=== PATIENT | female | born 1980 | race Caucasian/White ===

== ENCOUNTER 2021-01-04 09:42 | Emergency (ER) | payer MEDICAID, OTHER ==
[~2021-01-04] VITALS: Ht 175.3 cm; Wt 80.7 kg
[2021-01-04 10:04] VITALS: BP 148/108
[2021-01-04] MEDS ORDERED: methylPREDNISolone SOD SUCC 125 MG/2 ML VL IM ONE (10:15)
[2021-01-04] MEDS ORDERED: KETOROLAC TROMETH 60MG/2ML VIAL IM ONE (10:15)
== END 2021-01-04 10:47 | disposition home or self-care (01) ==
LOC: ER 09:42
DX: M10.9 Gout, unspecified (principal); E78.5 Hyperlipidemia, unspecified; I10 Essential (primary) hypertension; F17.210 Nicotine dependence, cigarettes, uncomplicated; Z88.0 Allergy status to penicillin
CPT/HCPCS: 96372; 99284; J1885; J2930

== ENCOUNTER 2023-10-16 19:29 | Inpatient (IN) | payer MEDICAID ==
[~2023-10-16] VITALS: Ht 175.3 cm; Wt 83.4 kg
[~2023-10-16 19:29] MED LIST: ESOM20CA70 PO; LISI10TA34 PO; LORA-483 PO; MONT-8 PO
[2023-10-16 22:00] LABS: Basophils # (auto) 0.1 10 ^3/uL (0-0.2); Eosinophils # (auto) 0.1 10 ^3/uL (0-0.8); Eosinophils % (auto) 2.4 % (0.0-7.0); Hematocrit 27.4 % (36.0-46.0); Hemoglobin 9.4 g/dL (12.2-16.2); Lymphocytes % (auto) 34.1 % (10.0-50.0); Mean Corpuscular Hemoglobin 32.3 pg (28.0-32.0); Mean Corpuscular Hgb Conc. 34.3 g/dL (32.0-36.0); Mean Corpuscular Volume 94.1 fL (80.0-100.0); Monocytes # (auto) 0.3 10 ^3/uL (0-1.3); Monocytes % (auto) 5.7 % (0.0-12.0); Neutrophils # (auto) 3.4 10 ^3/uL (1.6-8.6); Neutrophils % (auto) 56.8 % (37.0-80.0); Red Blood Cells 2.92 10^6/uL (4.0-5.20); Red Cell Distribution Width 11.8 % (11.8-14.3)
[2023-10-16 22:10] LABS: Alanine Aminotransferase 41 U/L (7-40); Albumin 4.5 g/dL (3.2-4.8); Alkaline Phosphatase 95 U/L (46-116); Anion Gap 11 (5-15); Aspartate Aminotransferase 38 U/L (13-40); Bilirubin, Total 0.3 mg/dL (0.2-1.0); Blood Urea Nitrogen 39 mg/dL (9-23); Calcium 9.2 mg/dL (8.5-10.1); Carbon Dioxide 23 mmol/L (20-30); Chloride 89 mmol/L (98-107); Glucose 83 mg/dL (74-106); Potassium 4.3 mmol/L (3.5-5.1); Sodium 123 mmol/L (136-145)
[2023-10-16 22:11] LABS: Total Protein 6.9 g/dL (5.7-8.2)
[2023-10-16 22:12] LABS: Urine Bacteria FEW /hpf (None Seen); Urine Blood Negative /uL (Negative); Urine Clarity Clear (Clear); Urine Color Colorless (Yellow); Urine Protein, UAD 2+ (Negative); Urine Specific Gravity 1.004 (1.001-1.035); Urine Urobilinogen Normal (Negative); Urine WBC 2 /hpf (0 - 5)
[2023-10-16] MEDS ORDERED: cefTRIAXone 1GM/50ML D5W 50 ML IV ONE (23:15)
[2023-10-16] MEDS ORDERED: SODIUM CHLORIDE 0.9% 1,000 ML IV ONE (23:15)
[2023-10-17] VITALS (8 sets, daily range): BP systolic 107–139; BP diastolic 63–80; PULSE 68–97; RESP 16–20; TEMP 97.4–98.4; O2SAT 95–100
[2023-10-17] MEDS ORDERED: ONDANSETRON HCL 4 MG/2 ML VIAL IV PRN (05:30)
[2023-10-17 07:39] LABS: Chloride 93 mmol/L (98-107); Potassium 4.4 mmol/L (3.5-5.1); Sodium 127 mmol/L (136-145)
[2023-10-17 07:40] LABS: Anion Gap 10 (5-15); Calcium 9.8 mg/dL (8.5-10.1); Carbon Dioxide 24 mmol/L (20-30)
[2023-10-17 07:45] LABS: BUN/Creatinine Ratio 14.9 (10.0-20.0); Blood Urea Nitrogen 33 mg/dL (9-23); Glucose 86 mg/dL (74-106)
[2023-10-17] MEDS ORDERED: TOLV15TA PO (09:07)
[2023-10-17] MEDS ORDERED: HYDR-4798 PO (09:07)
[2023-10-17] MEDS ORDERED: TOLV30TA2 PO (09:07)
[2023-10-17] MEDS ORDERED: UREA 15gm PO Powder PKG PO SCH (10:30)
[2023-10-17] MEDS: LISINOPRIL 10 MG TAB PO SCH (11:04)
[2023-10-17] MEDS: HYDROcodone-ACET 10/325MG TAB PO PRN ×2 (11:04→18:00)
[2023-10-17] MEDS ORDERED: SODIUM CHLORIDE 0.9% 1,000 ML IV ONE (11:45)
[2023-10-17] MEDS ORDERED: LACTULOSE 20Gm/30ML SOLN PO ONE (16:30)
[2023-10-17] MEDS ORDERED: JYNARQUE PO SCH (18:00)
[2023-10-17] MEDS: DOCUSATE SOD 100 MG CAP PO SCH (20:54)
[2023-10-17] MEDS ORDERED: MONTELUKAST SODIUM 10 MG TAB PO SCH (22:00)
[2023-10-18 05:00] VITALS: BP 122/75; PULSE 85; RESP 20; TEMP 97.5; O2SAT 99
[2023-10-18] MEDS: HYDROcodone-ACET 10/325MG TAB PO PRN ×2 (05:03→11:00)
[2023-10-18 06:25] LABS: Alanine Aminotransferase 30 U/L (7-40); Albumin 3.8 g/dL (3.2-4.8); Alkaline Phosphatase 66 U/L (46-116); Anion Gap 10 (5-15); Aspartate Aminotransferase 25 U/L (13-40); Bilirubin, Total 0.5 mg/dL (0.2-1.0); Blood Urea Nitrogen 35 mg/dL (9-23); Calcium 9.1 mg/dL (8.7-10.4); Carbon Dioxide 21 mmol/L (20-30); Chloride 105 mmol/L (98-107); Glucose 98 mg/dL (74-106); Potassium 4.1 mmol/L (3.5-5.1); Total Protein 6.1 g/dL (5.7-8.2)
[2023-10-18 06:57] LABS: Basophils # (auto) 0 10 ^3/uL (0-0.2); Basophils % (auto) 1.1 % (0.0-2.0); Eosinophils # (auto) 0.1 10 ^3/uL (0-0.8); Eosinophils % (auto) 3.3 % (0.0-7.0); Hematocrit 26.5 % (36.0-46.0); Lymphocytes # (auto) 1.2 10 ^3/uL (0.4-5.4); Lymphocytes % (auto) 30.5 % (10.0-50.0); Mean Corpuscular Hemoglobin 32.1 pg (28.0-32.0); Mean Corpuscular Hgb Conc. 33.8 g/dL (32.0-36.0); Mean Corpuscular Volume 94.7 fL (80.0-100.0); Monocytes # (auto) 0.3 10 ^3/uL (0-1.3); Monocytes % (auto) 7.6 % (0.0-12.0); Neutrophils # (auto) 2.2 10 ^3/uL (1.6-8.6); Neutrophils % (auto) 57.5 % (37.0-80.0); Nucleated Red Blood Cells % 0.1 %; White Blood Cell 3.8 10^3/uL (4.4-10.8)
[2023-10-18] MEDS ORDERED: TOLVAPTAN PO SCH (07:00)
[2023-10-18 07:04] LABS: Sodium 136 mmol/L (136-145)
[2023-10-18 08:00] VITALS: PULSE 74; RESP 20
[2023-10-18 08:55] VITALS: BP 114/68; PULSE 74; RESP 20; TEMP 98.3; O2SAT 97
[2023-10-18] MEDS: DOCUSATE SOD 100 MG CAP PO SCH (09:11)
[2023-10-18] MEDS: LISINOPRIL 10 MG TAB PO SCH (09:12)
[2023-10-18] MEDS ORDERED: B-COTAB10 PO (10:18)
[2023-10-18 11:53] VITALS: BP 114/68; PULSE 74; RESP 20; TEMP 98.3; O2SAT 97
== END 2023-10-18 13:03 | disposition home or self-care (01) | DRG 426 ==
LOC: ER 19:29 → OVERFLOW 10-17 05:16 → CENTRAL 10-17 09:00
PROVIDERS: ADMIT Nurse Practitioner; ATTEND Internal Medicine
DX: E87.1 Hypo-osmolality and hyponatremia (principal); N18.4 Chronic kidney disease, stage 4 (severe); Q61.2 Polycystic kidney, adult type; E78.5 Hyperlipidemia, unspecified; F17.210 Nicotine dependence, cigarettes, uncomplicated; G89.29 Other chronic pain; I12.9 Hypertensive chronic kidney disease with stage 1 through stage 4 chronic kidney disease, or unspecified chronic kidney disease; I25.10 Atherosclerotic heart disease of native coronary artery without angina pectoris; N39.0 Urinary tract infection, site not specified; M54.50 Low back pain, unspecified; M10.9 Gout, unspecified; F41.9 Anxiety disorder, unspecified; M54.9 Dorsalgia, unspecified; Z80.0 Family history of malignant neoplasm of digestive organs; Z82.71 Family history of polycystic kidney; Z88.0 Allergy status to penicillin
CPT/HCPCS: 36415; 80048; 80053; 81001; 83605; 83690; 84484; 85025; 93005; 96361; 96365; G0378

== ENCOUNTER 2024-11-25 12:27 | Inpatient (IN) | payer MEDICAID ==
[~2024-11-25] VITALS: Ht 175.3 cm; Wt 85.2 kg
[~2024-11-25 12:27] MED LIST changes: +B-CO1TAB60 PO; +HYDR-4798 PO; +TOLV15TA PO; +TOLV30TA2 PO
[2024-11-25 12:57] LABS: Basophils # (auto) 0 10 ^3/uL (0-0.2); Basophils % (auto) 0.7 % (0.0-2.0); Eosinophils # (auto) 0.2 10 ^3/uL (0-0.8); Hematocrit 25.9 % (36.0-46.0); Lymphocytes # (auto) 0.9 10 ^3/uL (0.4-5.4); Lymphocytes % (auto) 14.9 % (10.0-50.0); Mean Corpuscular Hemoglobin 32.6 pg (28.0-32.0); Mean Corpuscular Hgb Conc. 34.9 g/dL (32.0-36.0); Mean Corpuscular Volume 93.4 fL (80.0-100.0); Monocytes # (auto) 0.3 10 ^3/uL (0-1.3); Monocytes % (auto) 5.1 % (0.0-12.0); Neutrophils # (auto) 4.4 10 ^3/uL (1.6-8.6); Neutrophils % (auto) 76.3 % (37.0-80.0); Platelet Count (auto) 288 10^3/uL (140-450); Red Blood Cells 2.78 10^6/uL (4.0-5.20); Red Cell Distribution Width 13.4 % (11.8-14.3); White Blood Cell 5.7 10^3/uL (4.4-10.8)
--- NOTE | 2024-11-25 13:00 | DVH ---
CHEST RADIOGRAPH Indication: CHEST PAIN Technique: Single frontal view of the chest was obtained Comparison: XY CHEST PORTABLE on DOS: 04/06/23 FINDINGS: Lines and Tubes: None Lungs: No focal consolidation. Pleura: No effusion. No pneumothorax. Cardiomediastinal contours: Unremarkable Bones: No acute osseous abnormality. IMPRESSION: No acute cardiopulmonary disease.
[2024-11-25 13:14] LABS: Alanine Aminotransferase 21 U/L (7-40); Alkaline Phosphatase 112 U/L (46-116); Anion Gap 14 (5-15); Aspartate Aminotransferase 22 U/L (13-40); BUN/Creatinine Ratio 10.8 (10.0-20.0); Calcium 9.8 mg/dL (8.7-10.4); Glucose 89 mg/dL (74-106); Potassium 4.6 mmol/L (3.5-5.1); Total Protein 7.6 g/dL (5.7-8.2)
[2024-11-25 13:16] LABS: Bilirubin, Total 0.3 mg/dL (0.2-1.0); Blood Urea Nitrogen 73 mg/dL (9-23); Carbon Dioxide 18 mmol/L (20-31); Chloride 98 mmol/L (98-107); Sodium 130 mmol/L (136-145)
--- NOTE | 2024-11-25 13:31 | ED.PDOC ---
History of Present Illness HPI Comments This is a 44-year-old female who comes in with chief complaint of palpitations as well as generalized weakness. The patient states that she has had a history of anemia in the past. For the past few days she has been having some chest pressure and is concerned that she is anemic. The patient is currently getting iron infusions in her last one was done on Friday. Patient was able to ambulate into the emergency department's without any difficulty but states that she was having the palpitations. The patient denies any vomiting or diarrhea. Chief Complaint: Chest Pain Time Seen by MD: 12:31 Primary Care Provider: HI Reviewed Notes: Nurses Notes, Medications, Allergies (Allergies listed above) Allergies: Coded Allergies: Alprazolam (Verified Allergy, Unknown, 01/04/21) Penicillins (Verified Allergy, Unknown, 01/04/21) Home Meds Active Scripts B-Complex W/ C & Folic Acid (Nephro-Romeo) Tab, 1 TAB PO DAILY for 30 Days, #30 TAB 2 Refills Prov:HEENA DOMINGUEZ MD 10/18/23 Reported Medications Hydrocodone-Acetaminophen (Hydrocodone Bitartrate/AC 10-325 mg) 1 Tab Tab, 1 TAB PO for CKD, TAB 10/17/23 Tolvaptan (Jynarque) 15 Mg Tab, 15 MG PO for CKD, TAB 10/17/23 Tolvaptan (Jynarque) 30 Mg Tab, 30 MG PO for CKD, TAB 10/17/23 Montelukast Sodium (MONTELUKAST SODIUM) 10 Mg Tab, 1 TAB PO 04/06/23 Esomeprazole Magnesium (Esomeprazole Magnesium Dr) 20 Mg Cap, 1 CAP PO DAILYPRN PRN 04/06/23 Lisinopril (Lisinopril) 10 Mg Tab, 1 TAB PO DAILY 04/06/23 Loratadine (CLARITIN TABLET) 10 Mg Tb, 1 TAB PO DAILY 04/06/23 Information Source: Patient Mode of Arrival: Ambulatory Severity: Moderate Timing: Days Duration: Since onset Prehospital treatment: None Associated signs and symptoms Generalized weakness with palpitations Past Medical History PAST MEDICAL HISTORY: Anemia, CKF, Gout, High Lipids, HTN Surgical History (Other): Breast augmentation HEALTH AND WELLNESS COACH History: Denies all HEALTH AND WELLNESS COACH Hx Family History Family History: Family hx of Kidney so Social History Smoker: Cigarettes Alcohol: Denies ETOH Use Drugs: Denies Drug Use Lives In: Home Constitutional: reports: weakness; denies: chills, diaphoresis, fatigue, fever, malaise, sweats, others EENTM: denies: blurred vision, double vision, ear bleeding, ear discharge, ear drainage, ear pain, ear ringing, eye pain, eye redness, hearing loss, mouth pain, mouth swelling, nasal discharge, nose bleeding, nose congestion, nose pain, photophobia, tearing, throat pain, throat swelling, voice changes, others Respiratory: denies: cough, hemoptysis, orthopnea, SOB at rest, shortness of breath, SOB with excertion, stridor, wheezing, others Cardiovascular: reports: chest pain, palpitations; denies: dizzy spells, diaphoresis, Dyspnea on exertion, edema, irregular heart beat, left arm pain, lightheadedness, PND, syncope, others Gastrointestinal: denies: abdomen distended, abdominal pain, blood streaked bowels, constipated, diarrhea, dysphagia, difficulty swallowing, hematemesis, melena, nausea, poor appetite, poor fluid intake, rectal bleeding, rectal pain, vomiting, others Genitourinary: denies: abnormal vagina bleeding, burning, dyspareunia, dysuria, flank pain, frequency, hematuria, incontinence, pain, , vagina discharge, urgency, others Neurological: denies: dizziness, fainting, headache, left sided numbness, left sided weakness, numbness, paresthesia, pre-existing deficit, right sided numbness, right sided weakness, seizure, speech problems, tingling, tremors, weakness, others Musculoskeletal: denies: back pain, gout, joint pain, joint swelling, muscle pain, muscle stiffness, neck pain, others Integumetry: denies: bruises, change in color, change in hair/nails, dryness, laceration, lesions, lumps, rash, wounds, others Allergic/Immunocompromised: denies: Difficulty Healing, Frequent Infections, Hives, Itching, others Hematologic/Lymphatic: denies: anemia, blood clots, easy bleeding, easy bruising, swollen glands, others Endocrine: denies: excessive hunger, excessive sweating, excessive thirst, excessive urination, flushing, intolerance to cold, intolerance to heat, unexplained weight gain, unexplained weight loss, others Psychiatric: denies: anxiety, bipolar disorder, depression, hopeless, panic disorder, schizophrenia, sleepless, suicidal, others Physical Exam General Appearance: Moderate Distress HEENT: Normal ENT Inspection, Pharynx Normal, TMs Normal Neck: Full Range of Motion, Non-Tender, Normal, Normal Inspection Respiratory: Chest Non-Tender, Lungs Clear, No Accessory Muscle Use, No Respiratory Distress, Normal Breath Sounds Cardiovascular: No Edema, No JVD, No Murmur, No Gallop, Tachycardia Breast Exam: Deferred Gastrointestinal: No Organomegaly, Non Tender, No Pulsatile Mass, Normal Bowel Sounds, Soft Genitalia: Deferred Pelvic: Deferred Rectal: Deferred Extremities: No calf tenderness, Normal capillary refill, Normal inspection, Normal range of motion, Non-tender, No pedal edema Musculoskeletal : Apperance: Normal Neurologic: Alert, marketing officer II-XII nml as Tested, No Motor Deficits, Normal Affect, Normal Mood, No Sensory Deficits Cerebellar Function: Normal Reflexes: Normal Skin: Dry, Normal Color, Warm Lymphatic: No Adenopathy Was a procedure done? Was a procedure done?: No EKG EKG : Pulse Rate (adult): 103 [place]: Normal Cardiac Rhythm: ST Block: None ST: Nonsp Differential Dx Considerations may include: Palpitations, ACS, ND, generalized weakness, electrolyte imbalance X-Ray, Labs, Meds, VS Vital Signs Date Time Temp Pulse Resp B/P (MAP) Pulse Ox O2 Delivery O2 Flow Rate FiO2 11/25/24 12:36 103 Lab Test 11/25/24 12:47 Range/Units White Blood Count 5.7 4.4-10.8 10^3/uL Red Blood Count 2.78 L 4.0-5.20 10^6/uL Hemoglobin 9.0 L 12.2-16.2 g/dL Hematocrit 25.9 L 36.0-46.0 % Mean Corpuscular Volume 93.4 80.0-100.0 fL Mean Corpuscular Hemoglobin 32.6 H 28.0-32.0 pg Mean Corpuscular Hemoglobin Concent 34.9 32.0-36.0 g/dL Red Cell Distribution Width 13.4 11.8-14.3 % Platelet Count 288 140-450 10^3/uL Mean Platelet Volume 6.5 L 6.9-10.8 fL Neutrophils (%) (Auto) 76.3 37.0-80.0 % Lymphocytes (%) (Auto) 14.9 10.0-50.0 % Monocytes (%) (Auto) 5.1 0.0-12.0 % Eosinophils (%) (Auto) 3.0 0.0-7.0 % Basophils (%) (Auto) 0.7 0.0-2.0 % Neutrophils # (Auto) 4.4 1.6-8.6 10 ^3/uL Lymphocytes # (Auto) 0.9 0.4-5.4 10 ^3/uL Monocytes # (Auto) 0.3 0-1.3 10 ^3/uL Eosinophils # (Auto) 0.2 0-0.8 10 ^3/uL Basophils # (Auto) 0 0-0.2 10 ^3/uL Nucleated Red Blood Cells 0.0 % Sodium Level 130 L 136-145 mmol/L Potassium Level 4.6 3.5-5.1 mmol/L Chloride Level 98 98-107 mmol/L Carbon Dioxide Level 18 L 20-31 mmol/L Anion Gap 14 5-15 Blood Urea Nitrogen 73 H 9-23 mg/dL Creatinine 6.73 H 0.550-1.02 mg/dL Glomerular Filtration Rate Calc 7 >90 mL/min BUN/Creatinine Ratio 10.8 10.0-20.0 Serum Glucose 89 74-106 mg/dL Calcium Level 9.8 8.7-10.4 mg/dL Magnesium Level 1.5 L 1.6-2.6 mg/dL Total Bilirubin 0.3 0.2-1.0 mg/dL Aspartate Amino Transferase (AST) 22 13-40 U/L Alanine Aminotransferase (ALT) 21 7-40 U/L Alkaline Phosphatase 112 46-116 U/L Troponin I High Sensitivity 4 </=34 ng/L Total Protein 7.6 5.7-8.2 g/dL Albumin 5.0 H 3.2-4.8 g/dL The patient's CBC shows anemia with a hemoglobin of 9 and hematocrit of 25 The rest of the chemistry panel shows hyponatremia at 130 The BUN is 73 and the creatinine 6.73 There is a concern with the renal failure The patient was being admitted to the hospitalist The patient understands and agrees with the management The chest x-ray shows: No sign of any abnormalities The patient was being admitted at this time Images Reviewed?: Images reviewed and evaluated by me Time of 1ST Reevaluation: 13:28 Reevaluation 1ST: Unchanged Patient Education/Counseling: Diagnosis, Treatment, Prognosis Family Education/Counseling: No Family Present Departure 1 Departure Time of Disposition: 13:29 Impression: Primary Impression: Acute hyponatremia Additional Impressions: Acute renal failure Qualified Codes: N17.1 - Acute kidney failure with acute cortical necrosis Severe anemia Acute chest pain Disposition: ADMITTED INPATIENT Admit to: Tele Condition: Fair Critical Care Note Critical Care Time?: Yes (35 min-critical care time only) Stability Stability form required: Yes Unstable for transfer: Telemetry monitoring (Telemetry monitoring required), ED Physician Assesment (Clinical assesment) Heart Score Heart Score: Heart Score Response (Comments) Value History Moderate Suspicious 1 EKG Repolarization Disturb 1 Age 45-64 1 Risk Factors 1 or 2 risk factors 1 Troponin Normal limit 0 Total 4 LEOPOLDO HOU MD Nov 25, 2024 13:31
--- NOTE | 2024-11-25 23:10 | DVHHPRES ---
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 She also reports shortness of breaths, and weakness. Per patient, she has a chronic anemia due to CKD, and has been using Epogen 5000 per week since 1.5 months, which at the beginning helped in improving the Hb, but later her Hb started declining back despite using Epogen. She denies fever, cough, nausea, vomiting, or any recent bowel and bladder habit changes. PMHx: CKD grade 5 (due to autosomal dominant polycystic kidney disease, have never performed HD), chronic anemia (due to CKD, never underwent BT), gout, dyslipidemia, hypertension and liver cysts Family history: Has Polycystic kidney disease in parents and siblings Home medication: Tolvaptan, spironolactone, senna, [place], Epogen, and montelukast Allergic history: Alprazolam and penicillin Review of Systems Review of Systems General: patient denies fever, fatigue, weaknes, sweating, any recent changes in appetite and weight HEENT: No headaches, visiual changes, hearing loss, tinnitus, nasal congestion and discharge, and sore throat. Cardiovascular: Reports palpitation Respiratory: Reports shortness of breath Gastrointestinal: Denies nausea, vomiting, dysphagia, odynophagia, heartburn, abdominal pain, flatulence, bloating, diarrhea, constipation, change in stool, or blood in stool. Genitourinary: No dysuria, hematuria, discharge, frequency, urgency, nocturia, incontinence, and urinary retention. Endocrine: No heat or cold intolerance, polydipsia, polyuria, and polyphagia. Neurological: No dizziness, extremity weakness and numbness, tremors, gait disturbance, seizures, and memory impairment. Psychiatric: Denies depression, anxiety,or insomnia. Musculoskeletal: Denies neck pain, stiffness and swelling, back pain, muscle weakness, joint pain, stiffness, swelling, or limited range of motion. Skin: No rashes, itching, skin lesion, changes in hair, nail, skin texture and breast. Hematologic/Lymphatic: Denies easy bruising, bleeding tendencies, or lymph node enlargement. Allergies: Coded Allergies: Alprazolam (Verified Allergy, Unknown, 01/04/21) Penicillins (Verified Allergy, Unknown, 01/04/21) Exam Vital Signs Vital Signs Date Time Temp Pulse Resp B/P (MAP) Pulse Ox O2 Delivery O2 Flow Rate FiO2 11/25/24 20:30 98 16 153/98 (116) 96 11/25/24 15:10 Room Air* 0 21 11/25/24 15:02 98.4 98.4 Exam General Appearance: Alert, Oriented X3, Cooperative, No acute distress HEENT: Atraumatic, PERRLA, EOMI, Mucous membrane moist/pink Respiratory: Clear to auscultation, Normal air movement Cardiovascular: Regular rate, Normal S1, Normal S2, No murmurs, no chest wall tenderness Abdominal: Normal bowel sounds, Soft, No tenderness, No hepatospenomegaly, No masses Extremities: Left ankle is swollen Skin: No rashes, No breakdown, No significant lesion Neuro: Normal gait, Normal speech, Strength at 5/5 X4 ext, Normal tone, Sens ation intact, Cranial nerves 3-12 NL, Reflexes 2+ Psych/Mental Status: Mental status NL, Mood NL Labs/Xrays Labs Test 11/25/24 13:40 11/25/24 12:47 Range/Units Troponin I High Sensitivity 4 </=34 ng/L White Blood Count 5.7 4.4-10.8 10^3/uL Red Blood Count 2.78 L 4.0-5.20 10^6/uL Hemoglobin 9.0 L 12.2-16.2 g/dL Hematocrit 25.9 L 36.0-46.0 % Mean Corpuscular Volume 93.4 80.0-100.0 fL Mean Corpuscular Hemoglobin 32.6 H 28.0-32.0 pg Mean Corpuscular Hemoglobin Concent 34.9 32.0-36.0 g/dL Red Cell Distribution Width 13.4 11.8-14.3 % Platelet Count 288 140-450 10^3/uL Mean Platelet Volume 6.5 L 6.9-10.8 fL Neutrophils (%) (Auto) 76.3 37.0-80.0 % Lymphocytes (%) (Auto) 14.9 10.0-50.0 % Monocytes (%) (Auto) 5.1 0.0-12.0 % Eosinophils (%) (Auto) 3.0 0.0-7.0 % Basophils (%) (Auto) 0.7 0.0-2.0 % Neutrophils # (Auto) 4.4 1.6-8.6 10 ^3/uL Lymphocytes # (Auto) 0.9 0.4-5.4 10 ^3/uL Monocytes # (Auto) 0.3 0-1.3 10 ^3/uL Eosinophils # (Auto) 0.2 0-0.8 10 ^3/uL Basophils # (Auto) 0 0-0.2 10 ^3/uL Nucleated Red Blood Cells 0.0 % Sodium Level 130 L 136-145 mmol/L Potassium Level 4.6 3.5-5.1 mmol/L Chloride Level 98 98-107 mmol/L Carbon Dioxide Level 18 L 20-31 mmol/L Anion Gap 14 5-15 Blood Urea Nitrogen 73 H 9-23 mg/dL Creatinine 6.73 H 0.550-1.02 mg/dL Glomerular Filtration Rate Calc 7 >90 mL/min BUN/Creatinine Ratio 10.8 10.0-20.0 Serum Glucose 89 74-106 mg/dL Calcium Level 9.8 8.7-10.4 mg/dL Magnesium Level 1.5 L 1.6-2.6 mg/dL Total Bilirubin 0.3 0.2-1.0 mg/dL Aspartate Amino Transferase (AST) 22 13-40 U/L Alanine Aminotransferase (ALT) 21 7-40 U/L Alkaline Phosphatase 112 46-116 U/L Total Protein 7.6 5.7-8.2 g/dL Albumin 5.0 H 3.2-4.8 g/dL Assessment/Plan Assessment/Plan Possible SHAUNNA on CKD History of autosomal dominant polycystic kidney disease Hyponatremia NaCl tablet Continue tolvaptan Hypertension Continue spironolactone Constipation Continue seen and Hypomagnesemia, repleted Moderate anemia, normocytic normochromic DIET: Renal DVT PROPHYLAXIS: Lovenox CODE STATUS: Full code DISPOSITION: Med surge Patient's status and paln discussed with patient. Case discussed with Dr. Marion. Plan discussed with: Patient, Other (RN) My Orders Orders - KOBE SAGASTUME RESDIENT Procedure Category Date Status Time Admit ADMIT 11/25/24 Transmitted 22:50 Stat Ekg For Chest BIA 11/25/24 In Process Pain 22:50 Notify Md Of Changes BIA 11/25/24 In Process From Base 22:50 Date of Service: Nov 26, 2024 Billing Provider: BIR MARION MD Common Visit Codes: [id number] INP/OBS CARE (HIGH) KOBE SAGASTUME RESDIARSH Nov 25, 2024 23:10 BRI MARION MD Nov 28, 2024 15:11
[2024-11-26] MEDS: HYDROcodone-ACET 10/325MG TAB PO ONE (00:04)
--- NOTE | 2024-11-26 00:20 | DVH ---
CLINICAL INDICATION: L ANKLE SWOLLEN TECHNIQUE: XY L ANKLE 2 VIEW XRAY Comparison: None FINDINGS: Evidence of mild soft tissue swelling overlying the lateral malleolus and small ankle joint effusion. No evidence of fracture or dislocation. Ankle mortise appears unremarkable. IMPRESSION: No evidence of fracture or dislocation.
--- NOTE | 2024-11-26 00:33 | ECG ---
[facility] Test Date: 2024-11-25 Test Time: 13:27:15 Pat Name: CT WARE Department: ED Room: [address] [place] [address] A Gender: F Hospice Consultant: GARY : 1980 Requested By: DENZEL BAKER Order Number: [id number] Reading MD: Benedicto Lim Measurements Intervals [place] Rate: 87 P: 74 WY: 159 QRS: 62 QRSD: 87 T: 43 QT: 344 QTc: 414 Interpretive Statements Sinus rhythm Left atrial enlargement Electronically Signed On 11-26-2024 12:10:45 PST by Benedicto Lim Please click the below link to view image of tracing.
--- NOTE | 2024-11-26 00:45 | ECG ---
[facility] Test Date: 2024-11-25 Test Time: 12:36:42 Pat Name: CT WARE Department: ER Room: [address] [place] [address] A Gender: F Account Service Representative: ANNETTE : 1980 Requested By: DENZEL BAKER Order Number: [id number] Reading MD: Benedicto Lim Measurements Intervals [place] Rate: 103 P: 66 PA: 158 QRS: 60 QRSD: 89 T: 39 QT: 332 QTc: 435 Interpretive Statements Sinus tachycardia Probable left atrial enlargement Electronically Signed On 11-26-2024 12:10:21 PST by Benedicto Lim Please click the below link to view image of tracing.
[2024-11-26] MEDS: SODIUM CHLORIDE 1 GM TAB PO ONE (03:42)
[2024-11-26] MEDS: PANTOPRAZOLE 40 MG/10 ML VIAL INJ IV ONE (03:42)
[2024-11-26] MEDS: SPIRONOLACTONE 25 MG TAB PO ONE (03:43)
[2024-11-26] MEDS: ENOXAPARIN SOD 30 MG/0.3 ML SYRINGE SC ONE (03:43)
[2024-11-26] MEDS: MAGNESIUM SULFATE 1GM/100ML 100 ML IV SCH (03:44)
[2024-11-26 05:51] LABS: Basophils # (auto) 0.1 10 ^3/uL (0-0.2); Eosinophils # (auto) 0.3 10 ^3/uL (0-0.8); Hemoglobin 8.4 g/dL (12.2-16.2); Monocytes # (auto) 0.4 10 ^3/uL (0-1.3); Monocytes % (auto) 7.3 % (0.0-12.0); Neutrophils # (auto) 3.6 10 ^3/uL (1.6-8.6); Red Blood Cells 2.56 10^6/uL (4.0-5.20); White Blood Cell 5.8 10^3/uL (4.4-10.8)
[2024-11-26 05:53] LABS: Eosinophils % (auto) 5.5 % (0.0-7.0); Lymphocytes # (auto) 1.3 10 ^3/uL (0.4-5.4); Lymphocytes % (auto) 22.7 % (10.0-50.0); Mean Corpuscular Hemoglobin 32.7 pg (28.0-32.0); Mean Corpuscular Hgb Conc. 34.9 g/dL (32.0-36.0); Mean Corpuscular Volume 93.8 fL (80.0-100.0); Neutrophils % (auto) 62.5 % (37.0-80.0); Nucleated Red Blood Cells % 0.1 %; Platelet Count (auto) 266 10^3/uL (140-450); Red Cell Distribution Width 13.4 % (11.8-14.3)
[2024-11-26 06:10] LABS: % Iron Saturation 45.7 % (15-50)
[2024-11-26 06:12] LABS: Alanine Aminotransferase 20 U/L (7-40); Albumin 4.8 g/dL (3.2-4.8); Alkaline Phosphatase 94 U/L (46-116); Anion Gap 12 (5-15); Aspartate Aminotransferase 21 U/L (13-40); BUN/Creatinine Ratio 10.1 (10.0-20.0); Calcium 10.1 mg/dL (8.7-10.4); Chloride 99 mmol/L (98-107); Glucose 77 mg/dL (74-106); Potassium 4.1 mmol/L (3.5-5.1)
[2024-11-26 06:13] LABS: Bilirubin, Total 0.3 mg/dL (0.2-1.0); Blood Urea Nitrogen 68 mg/dL (9-23); Carbon Dioxide 20 mmol/L (20-31); Sodium 131 mmol/L (136-145); Total Protein 7.4 g/dL (5.7-8.2)
[2024-11-26 10:30] VITALS: BP 139/93; PULSE 101; RESP 20; O2SAT 97
[2024-11-26] MEDS: SPIRONOLACTONE 25 MG TAB PO SCH (10:55)
[2024-11-26] MEDS: TOLVAPTAN 45 MG PO SCH (10:55)
[2024-11-26 12:00] VITALS: BP 139/93; PULSE 101; RESP 20; TEMP 98.2; O2SAT 97
[2024-11-26 13:02] VITALS: BP 139/93; PULSE 101; RESP 20; O2SAT 97
--- NOTE | 2024-11-26 15:48 | DVHPNRES ---
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 She also reports shortness of breaths, and weakness. Per patient, she has a chronic anemia due to CKD, and has been using Epogen 5000 per week since 1.5 months, which at the beginning helped in improving the Hb, but later her Hb started declining back despite using Epogen. She denies fever, cough, nausea, vomiting, or any recent bowel and bladder habit changes. Patient was seen and examined on the bedside. She is alert, oriented x3. Complaint of palpitation and fatigue. No other active complaint. Constitutional: No: Fever, Chills, Sweats, Weakness, Malaise, Other Eyes: No: Pain, Vision change, Conjunctivae inflammation, Eyelid inflammation, Other, Redness ENT: No: Ear pain, Ear discharge, Nose pain, Nose discharge, Nose congestion, Mouth pain, Mouth swelling, Throat pain, Throat swelling, Other Respiratory: Shortness of breath, improving No: Cough, Dry,Wheezing, Hemoptysis, Pleuritic Pain, Sputum, Wheezing, Other Cardiovascular: No: Chest Pain, Palpitations, Orthopnea, Paroxysmal Noc. Dyspnea, Edema, Lt Headedness, Other Gastrointestinal: No: Nausea, Vomiting, Abdominal Pain, Diarrhea, Constipation, Melena, Hematochezia, Other Musculoskeletal: No: other, neck pain, shoulder pain, arm pain, back pain, hand pain, leg pain, foot pain Neurological:; No: Weakness, Numbness, Incoordination, Change in speech, Confusion, Seizures Objective vital signs Vital Sign Date Time Temp Pulse Resp B/P (MAP) Pulse Ox O2 Delivery O2 Flow Rate FiO2 11/26/24 13:02 101 20 139/93 (108) 97 11/26/24 12:00 98.2 98.2 11/25/24 15:10 Room Air* 0 21 medications Current Medications Medications Dose Ordered Sig/Chao Route Start Time Stop Time Status Last Admin Dose Admin Enoxaparin Sodium 30 mg DAILY SC 11/27/24 10:00 Spironolactone 100 mg DAILY PO 11/26/24 10:00 11/26/24 10:55 100 MG Pantoprazole Sodium 40 mg DAILY IV 11/27/24 10:00 Patient Own Medication 1 BID PO 11/26/24 10:00 11/26/24 10:55 1 Sodium Chloride 1,000 ml @ 100 mls/hr Q10H IV 11/26/24 13:45 Acetaminophen/ Hydrocodone Bitart 1 tab Q6HPRN PRN PO 11/26/24 13:45 Montelukast Sodium 10 mg HS PO 11/26/24 22:00 Examination Physical examination: General Appearance: Alert, Oriented X3, Cooperative, No acute distress HEENT: Atraumatic, PERRLA, EOMI, Mucous membrane moist/pink Respiratory: Clear to auscultation, Normal air movement Cardiovascular: Regular rate, Normal S1, Normal S2, No murmurs, no chest wall tenderness Abdominal: Normal bowel sounds, Soft, No tenderness, No hepatospenomegaly, No masses Extremities: No clubbing, No cyanosis, No edema, Normal pulses, No tenderness/swelling Skin: No rashes, No breakdown, No significant lesion Neuro: Normal gait, Normal speech, Strength at 5/5 X4 ext, Normal tone, Sensation intact,grossly intact cranial nerves. Psych/Mental Status: Mental status NL, Mood NL laboratory and microbiology Laboratory Tests 11/26/24 04:50 Test 11/26/24 04:50 Range/Units Serum Glucose 77 74-106 mg/dL Labs and/or images reviewed: Labs reviewed by me, Image(s) reviewed by me Problem List/Assessment/Plan Problem List/Assessment/Plan Assessment/Plan: # History of autosomal dominant polycystic kidney disease # Possible SHAUNNA on CKD secondary to hemodynamically mediated /VMN # Chronic anaemia secondary to CKD # Chronic euvolemic hyponatremia likely secondary to SIADH # Possible hypertensive heart disease # Rule out CHF - CXR revealed no acute cardiopulmonary abnormality - BNP is normal - Ordered Echo - IV normal saline 75 ml/hr - Tolvaptan 45 mg bid - Nacl tablet 1 gm daily. - Spironolactone 100 mg daily. - Pending echo. # Hypomagnesemia, repleted DIET: Renal DVT PROPHYLAXIS: Lovenox CODE STATUS: Full code DISPOSITION: Med surge Plan discussed with Dr. Dumont Plan discussed with: Patient, Other My Orders My Orders Orders - AUSTIN TALAVERA Procedure Category Date Status Time Echo 2d Mode Cardiac US 11/26/24 Logged DOP 11:53 Sodium Chloride 0.9% PHA 11/26/24 In Process 13:45 Hydrocodone-Acet PHA 11/26/24 In Process 10/325mg Tab ([place] 13:45 Renal DIET 11/26/24 Transmitted Standard(2gna,3gk,Lopho) Dinner Montelukast Tablet PHA 11/26/24 In Process (Singulair Tablet) 22:00 Date of Service: Nov 26, 2024 Billing Provider: DWIGHT MAXWELL MD Common Visit Codes: [id number] INP/OBS CARE(HIGH) AUSTIN TALAVERA RESIDENT Nov 26, 2024 15:48 DWIGHT MAXWELL MD Nov 30, 2024 09:49
[2024-11-26] MEDS: SODIUM CHLORIDE 0.9% 1,000 ML IV SCH (17:48)
[2024-11-26] MEDS: PANTOPRAZOLE 40 MG TAB PO ONE (19:13)
[2024-11-26] MEDS: HYDROcodone-ACET 10/325MG TAB PO PRN (20:17)
[2024-11-26] MEDS: MONTELUKAST SODIUM 10 MG TAB PO SCH (22:00)
[2024-11-26] MEDS: SENNA 8.6 MG TAB PO SCH (22:18)
[2024-11-27] VITALS (9 sets, daily range): BP systolic 104–136; BP diastolic 58–84; PULSE 72–97; RESP 16–18; TEMP 97.5–98.8; O2SAT 96–100
[2024-11-27] MEDS ORDERED: SPIR100T4 PO (03:11)
[2024-11-27] MEDS: PANTOPRAZOLE 40 MG TAB PO SCH (06:26)
[2024-11-27] MEDS: ENOXAPARIN SOD 30 MG/0.3 ML SYRINGE SC SCH (09:21)
[2024-11-27 09:30] LABS: Basophils # (auto) 0.1 10 ^3/uL (0-0.2); Basophils % (auto) 1.9 % (0.0-2.0); Eosinophils # (auto) 0.3 10 ^3/uL (0-0.8); Eosinophils % (auto) 6.3 % (0.0-7.0); Hematocrit 25.2 % (36.0-46.0); Hemoglobin 8.7 g/dL (12.2-16.2); Lymphocytes # (auto) 1.1 10 ^3/uL (0.4-5.4); Lymphocytes % (auto) 23.9 % (10.0-50.0); Mean Corpuscular Hemoglobin 32.6 pg (28.0-32.0); Mean Corpuscular Hgb Conc. 34.6 g/dL (32.0-36.0); Mean Corpuscular Volume 94.2 fL (80.0-100.0); Monocytes # (auto) 0.3 10 ^3/uL (0-1.3); Monocytes % (auto) 6.4 % (0.0-12.0); Neutrophils # (auto) 2.9 10 ^3/uL (1.6-8.6); Neutrophils % (auto) 61.5 % (37.0-80.0); Platelet Count (auto) 265 10^3/uL (140-450); Red Blood Cells 2.67 10^6/uL (4.0-5.20); Red Cell Distribution Width 13.7 % (11.8-14.3); White Blood Cell 4.8 10^3/uL (4.4-10.8)
[2024-11-27 09:36] LABS: Chloride 103 mmol/L (98-107); Potassium 4.6 mmol/L (3.5-5.1)
[2024-11-27 09:37] LABS: Anion Gap 14 (5-15); Calcium 10.1 mg/dL (8.7-10.4)
[2024-11-27 09:42] LABS: BUN/Creatinine Ratio 9.8 (10.0-20.0); Glucose 101 mg/dL (74-106)
[2024-11-27 09:43] LABS: Magnesium 1.8 mg/dL (1.6-2.6)
[2024-11-27 09:46] LABS: Blood Urea Nitrogen 70 mg/dL (9-23); Carbon Dioxide 18 mmol/L (20-31); Sodium 135 mmol/L (136-145)
[2024-11-27] MEDS ORDERED: PANTOPRAZOLE 40 MG/10 ML VIAL INJ IV SCH (10:00)
[2024-11-27] MEDS ORDERED: TOLVAPTAN 30 MG TAB PO SCH (10:00)
[2024-11-27] MEDS: DexAMETHasone SOD PHOS 10MG/1ML VIAL INJ IV ONE (12:02)
--- NOTE | 2024-11-27 12:41 | DVH ---
EXAM: US Retroperitoneal Limited, Renal CLINICAL INDICATION: perla/pkd TECHNIQUE: Real-time limited ultrasound of the retroperitoneum with image documentation. COMPARISON: US KIDNEY on DOS: 04/07/23 FINDINGS: RIGHT KIDNEY: Right kidney measures up to 14.1 cm. Bilateral renal cysts, largest measuring up to 6.7 cm. No stones. LEFT KIDNEY: Left kidney measures up to 13.6 cm. Portable left renal calculus, measuring up 5 mm without hydronephrosis. OTHER FINDINGS: . . . . .. IMPRESSION: 1. Portable left renal calculus, measuring up 5 mm without hydronephrosis. 2. Bilateral renal cysts, largest measuring up to 6.7 cm.
--- NOTE | 2024-11-27 16:39 | DVHPNRES ---
Progress Note Date Seen: Nov 27, 2024 Resident Creating Document: AUSTIN TALAVERA RESIDENT Medical Necessity Reason Pt with a Central, PICC or Fol: No Subjective Review of Systems This is a 44-year-old female with past medical history of CKD due to autosomal dominant polycystic kidney disease, gout, dyslipidemia, hypertension came to the hospital due to palpitation and generalized weakness since 2 days. She also reports shortness of breaths, and weakness. Per patient, she has a chronic anemia due to CKD, and has been using Epogen 5000 per week since 1.5 months, which at the beginning helped in improving the Hb, but later her Hb started declining back despite using Epogen. She denies fever, cough, nausea, vomiting, or any recent bowel and bladder habit changes. Patient was seen and examined on the bedside. She is alert, oriented x3. Complaint of palpitation, fatigue, lt ankle pain and swelling. No other active complaint. Objective vital signs Vital Sign Date Time Temp Pulse Resp B/P (MAP) Pulse Ox O2 Delivery O2 Flow Rate FiO2 11/27/24 13:00 98.8 92 16 122/78 (93) 98 98.8 11/27/24 08:00 Room Air* 0 21 Total Intake and Output 11/26/24 11/26/24 11/27/24 15:00 23:00 07:00 Intake Total 220 ml 720 ml Output Total 625 ml 1022 ml Balance -405 ml -302 ml medications Current Medications Medications Dose Ordered Sig/Chao Route Start Time Stop Time Status Last Admin Dose Admin Enoxaparin Sodium 30 mg DAILY SC 11/27/24 10:00 11/27/24 09:21 30 MG Spironolactone 100 mg DAILY PO 11/26/24 10:00 11/27/24 09:21 100 MG Patient Own Medication 1 BID PO 11/26/24 10:00 11/27/24 11:58 1 Sodium Chloride 1,000 ml @ 100 mls/hr Q10H IV 11/26/24 13:45 11/27/24 09:21 100 MLS/HR Acetaminophen/ Hydrocodone Bitart 1 tab Q6HPRN PRN PO 11/26/24 13:45 11/27/24 15:52 1 TAB Montelukast Sodium 10 mg HS PO 11/26/24 22:00 Sennosides 8.6 mg HS PO 11/26/24 22:00 11/26/24 22:18 8.6 MG Pantoprazole Sodium 40 mg DAILY@0600 PO 11/27/24 06:00 11/27/24 06:26 40 MG Examination Physical examination: General Appearance: Alert, Oriented X3, Cooperative, No acute distress HEENT: Atraumatic, PERRLA, EOMI, Mucous membrane moist/pink Respiratory: Clear to auscultation, Normal air movement Cardiovascular: Regular rate, Normal S1, Normal S2, No murmurs, no chest wall tenderness Abdominal: Normal bowel sounds, Soft, No tenderness, No hepatospenomegaly, No masses Extremities: Swelling in the Lt ankle with mild redness/tenderness, No clubbing, No cyanosis, No edema, Normal pulses Skin: No rashes, No breakdown, No significant lesion Neuro: Normal gait, Normal speech, Strength at 5/5 X4 ext, Normal tone, Sensation intact, grossly intact cranial nerves. Psych/Mental Status: Mental status NL, Mood NL laboratory and microbiology Laboratory Tests 11/27/24 08:55 Test 11/27/24 08:55 Range/Units Serum Glucose 101 74-106 mg/dL Labs and/or images reviewed: Labs reviewed by me, Image(s) reviewed by me Problem List/Assessment/Plan Problem List/Assessment/Plan Assessment/Plan: # History of autosomal dominant polycystic kidney disease # Possible SHAUNNA on CKD secondary to hemodynamically mediated /VMN # Chronic anaemia secondary to CKD # Chronic euvolemic hyponatremia likely secondary to SIADH # Lt renal calculus without hydronephrosis # Possible hypertensive heart disease # Rule out CHF - CXR revealed no acute cardiopulmonary abnormality - BNP is normal - U/S of the kidney left renal calculus without hydronephrosis and bilateral renal cyst. - IV normal saline 75 ml/hr - Tolvaptan 45 mg bid - Sodium chloride l tablet 1 gm daily. - Spironolactone 100 mg daily. - Nephrology on board - Pending echo. # Hypomagnesemia, repleted # Suspected gout of left ankle; treated with one dose of IV steroids; reviewed imaging results; to continue monitoring DIET: Renal DVT PROPHYLAXIS: Lovenox CODE STATUS: Full code DISPOSITION: Med surge Goals of care discussed with the patient for 20 minutes; full code Plan discussed with Dr. Lantigua Plan discussed with: Patient, Other (RN) My Orders My Orders Orders - AUSTIN TALAVERA Procedure Category Date Status Time Senna Pod Tablet PHA 11/26/24 In Process (Senokot Tablet) 22:00 Pantoprazole Tablet PHA 11/27/24 In Process (Protonix Tablet) 06:00 *[facility] CONS 11/27/24 Transmitted -[place] 10:27 Addendum Addendum Addendum I was physically present for the fields portions of the service provided to patient by THE RESIDENT. I have reviewed the documentation, discussed the case with resident and agree with the resident's documentation except as noted. Also the patient's clinical case was discussed with the patient's nurse. This medical document was created using an electronic medical record system with computerized dictation system. Although this document has been carefully reviewed, there might still be some phonetic and typographical errors. These areas are purely typographical due to imperfections of the software programs, and do not reflect any compromise in the patient's medical care. Late signature. Date of Service: Nov 27, 2024 Billing Provider: AL LANTIGUA MD Common Visit Codes: [id number] INP/OBS CARE(HIGH) Secondary Visit Codes: [id number] CARE PLAN 30 MINUTES (20 minutes) AUSTIN TALAVERA RESIDENT Nov 27, 2024 16:39 AL LANTIGUA MD Nov 28, 2024 07:23
--- NOTE | 2024-11-27 20:18 | DVHINCON2 ---
Date of service: Nov 27, 2024 History of Present Illness 43 years old female patient with past medical history of hypertension, CKD 4/5, dyslipidemia, autosomal polycystic kidney disease, low back pain, anxiety, presented with chief complaints of generalized weakness, palpitations and face turning pale the past two days patient is taking tolvaptan for ADPKD, she is also taking spironolactone 100 mg as outpatient Past Medical History As per HPI Past Surgical History Unknown exactly Allergies: Coded Allergies: Alprazolam (Verified Allergy, Unknown, 01/04/21) Penicillins (Verified Allergy, Unknown, 01/04/21) Home Meds Active Scripts B-Complex W/ C & Folic Acid (Nephro-Romeo) Tab, 1 TAB PO DAILY for 30 Days, #30 TAB 2 Refills Prov:HEENA DOMINGUEZ MD 10/18/23 Reported Medications Spironolactone (Spironolactone) 100 Mg Tab, 1 TAB PO DAILY, #30 TAB 11 Refills 11/27/24 Hydrocodone-Acetaminophen (Hydrocodone Bitartrate/AC 10-325 mg) 1 Tab Tab, 1 TAB PO for CKD, TAB 10/17/23 Tolvaptan (Jynarque) 15 Mg Tab, 15 MG PO for CKD, TAB 10/17/23 Tolvaptan (Jynarque) 30 Mg Tab, 30 MG PO for CKD, TAB 10/17/23 Montelukast Sodium (MONTELUKAST SODIUM) 10 Mg Tab, 1 TAB PO 04/06/23 Esomeprazole Magnesium (Esomeprazole Magnesium Dr) 20 Mg Cap, 1 CAP PO DAILYPRN PRN 04/06/23 Lisinopril (Lisinopril) 10 Mg Tab, 1 TAB PO DAILY 04/06/23 Loratadine (CLARITIN TABLET) 10 Mg Tb, 1 TAB PO DAILY 04/06/23 Current Medications Current Medications Medications (Trade) Dose Ordered Sig/Chao Route PRN Reason Start Time Stop Time Status Last Admin Enoxaparin Sodium (Lovenox) 30 mg DAILY SC 11/27/24 10:00 11/27/24 09:21 Pantoprazole Sodium (Protonix) 40 mg DAILY IV 11/27/24 10:00 11/26/24 17:04 DC Montelukast Sodium (Singulair Tablet) 10 mg HS PO 11/26/24 22:00 Tolvaptan (Samsca) 30 mg DAILY PO 11/27/24 10:00 11/26/24 13:43 DC Sennosides (Senokot Tablet) 8.6 mg HS PO 11/26/24 22:00 11/27/24 19:36 DC 11/26/24 22:18 Pantoprazole Sodium (Protonix Tablet) 40 mg DAILY@0600 PO 11/27/24 06:00 11/27/24 06:26 Sennosides (Senokot Tablet) 17.2 mg HS PO 11/27/24 22:00 Magnesium Oxide (Mag-Ox Tablet) 400 mg DAILY PO 11/28/24 10:00 Family History: FH polycystic kidney G8 MOTHER FH: kidney disease G8 MOTHER FH: stomach cancer G8 MOTHER Review of Systems As per HPI H&P Exam Vital Signs/I&O Vital Sign Date Time Temp Pulse Resp B/P (MAP) Pulse Ox O2 Delivery O2 Flow Rate FiO2 11/27/24 17:00 97.5 87 16 136/84 (101) 97 97.5 11/27/24 08:00 Room Air* 0 21 Intake and Output 11/26/24 11/27/24 19:00 07:00 Intake Total 220 ml 720 ml Output Total 625 ml 1022 ml Balance -405 ml -302 ml Intake Oral 220 ml 220 ml IV Total 500 ml Output Urine Total 625 ml 1022 ml Physical Exam General-not in any distress HEENT-normocephalic, no icterus, no pallor, neck supple Respiratory-fair air entry bilateral, no rhonchi, no wheeze [id number] heard, no murmurs appreciated Abdominal-soft, nontender, nondistended Musculoskeletal-no pedal edema, no calf tenderness Genitourinary-deferred Neuro-awake alert oriented x3, Psychiatric-not agitated, cooperative, Labs/Diagnostic Data Labs/Diagnostic Data Laboratory Tests Test 11/27/24 08:55 11/26/24 04:50 11/25/24 13:40 11/25/24 12:47 Range/Units White Blood Count 4.8 5.8 5.7 4.4-10.8 10^3/uL Red Blood Count 2.67 L 2.56 L 2.78 L 4.0-5.20 10^6/uL Hemoglobin 8.7 L 8.4 L 9.0 L 12.2-16.2 g/dL Hematocrit 25.2 L 24.0 L 25.9 L 36.0-46.0 % Mean Corpuscular Volume 94.2 93.8 93.4 80.0-100.0 fL Mean Corpuscular Hemoglobin 32.6 H 32.7 H 32.6 H 28.0-32.0 pg Mean Corpuscular Hemoglobin Concent 34.6 34.9 34.9 32.0-36.0 g/dL Red Cell Distribution Width 13.7 13.4 13.4 11.8-14.3 % Platelet Count 265 266 288 140-450 10^3/uL Mean Platelet Volume 7.1 7.1 6.5 L 6.9-10.8 fL Neutrophils (%) (Auto) 61.5 62.5 76.3 37.0-80.0 % Lymphocytes (%) (Auto) 23.9 22.7 14.9 10.0-50.0 % Monocytes (%) (Auto) 6.4 7.3 5.1 0.0-12.0 % Eosinophils (%) (Auto) 6.3 5.5 3.0 0.0-7.0 % Basophils (%) (Auto) 1.9 2.0 0.7 0.0-2.0 % Neutrophils # (Auto) 2.9 3.6 4.4 1.6-8.6 10 ^3/uL Lymphocytes # (Auto) 1.1 1.3 0.9 0.4-5.4 10 ^3/uL Monocytes # (Auto) 0.3 0.4 0.3 0-1.3 10 ^3/uL Eosinophils # (Auto) 0.3 0.3 0.2 0-0.8 10 ^3/uL Basophils # (Auto) 0.1 0.1 0 0-0.2 10 ^3/uL Nucleated Red Blood Cells 0.0 0.1 0.0 % Sodium Level 135 L 131 L 130 L 136-145 mmol/L Potassium Level 4.6 4.1 4.6 3.5-5.1 mmol/L Chloride Level 103 99 98 98-107 mmol/L Carbon Dioxide Level 18 L 20 18 L 20-31 mmol/L Anion Gap 14 12 14 5-15 Blood Urea Nitrogen 70 H 68 H 73 H 9-23 mg/dL Creatinine 7.13 H 6.76 H 6.73 H 0.550-1.02 mg/dL Glomerular Filtration Rate Calc 7 7 7 >90 mL/min BUN/Creatinine Ratio 9.8 L 10.1 10.8 10.0-20.0 Serum Glucose 101 77 89 74-106 mg/dL Calcium Level 10.1 10.1 9.8 8.7-10.4 mg/dL Magnesium Level 1.8 1.5 L 1.6-2.6 mg/dL Hemoglobin A1c < 3.8 <5.7 % A1C Serum Osmolality 300 H 278-298 mOsm/kg Iron Level 111 50-170 ug/dL Total Iron Binding Capacity 243 L 250-425 ug/dL Percent Iron Saturation 45.7 15-50 % Ferritin 84.1 10-291 ng/mL Total Bilirubin 0.3 0.3 0.2-1.0 mg/dL Aspartate Amino Transferase (AST) 21 22 13-40 U/L Alanine Aminotransferase (ALT) 20 21 7-40 U/L Alkaline Phosphatase 94 112 46-116 U/L B-Type Natriuretic Peptide 19.10 0-100 pg/mL Total Protein 7.4 7.6 5.7-8.2 g/dL Albumin 4.8 5.0 H 3.2-4.8 g/dL Thyroid Stimulating Hormone (TSH) 3.16 0.55-4.78 uIU/mL Troponin I High Sensitivity 4 4 </=34 ng/L Assessment Acute kidney injury on Chronic kidney disease 4/5 hemodynamic mediated etiology --reports baseline creatinine is in four range Hyponatremia Autosomal dominant polycystic kidney disease Hypertension Metabolic acidosis Recommendations Stop spironolactone now and after discharge NS IV as ordered Hold tolvaptan now We will monitor renal function closely Plan discussed with: Patient JENN LAWRENCE MD Nov 27, 2024 20:18
[2024-11-27] MEDS: SENNA 8.6 MG TAB PO SCH (21:36)
[2024-11-28] VITALS (7 sets, daily range): BP systolic 115–159; BP diastolic 65–100; PULSE 74–91; RESP 10–20; TEMP 97.9–98.9; O2SAT 97–100
[2024-11-28 05:12] LABS: Urine Bacteria None Seen /hpf (None Seen)
[2024-11-28 05:34] LABS: Opiate Scree,Urine Neg (NEGATIVE)
[2024-11-28 05:35] LABS: Urine Blood TRACE /uL (Negative); Urine Clarity Clear (Clear); Urine Color Colorless (Yellow); Urine Protein, UAD 1+ (Negative); Urine Specific Gravity 1.005 (1.001-1.035); Urine Squamous Epithelial Cell None Seen /hpf (<5); Urine Urobilinogen Normal (Negative); Urine WBC < 1 /HPF (0-5)
[2024-11-28 05:45] LABS: Amphetamine Screen, Urine Neg (NEGATIVE); Barbiturate Scree,Urine Neg (NEGATIVE); Benzodiazephine Screen, Urine Neg (NEGATIVE); Cannabinoid Screen, Urine Neg (NEGATIVE); Cocaine Screen, Urine Neg (NEGATIVE); Phencyclidine Screen, Urine Neg (NEGATIVE)
[2024-11-28 05:56] LABS: Basophils # (auto) 0 10 ^3/uL (0-0.2); Basophils % (auto) 0.1 % (0.0-2.0); Eosinophils # (auto) 0 10 ^3/uL (0-0.8); Hemoglobin 8.2 g/dL (12.2-16.2); Monocytes # (auto) 0.5 10 ^3/uL (0-1.3); White Blood Cell 10.1 10^3/uL (4.4-10.8)
[2024-11-28 05:59] LABS: Hematocrit 23.5 % (36.0-46.0); Lymphocytes # (auto) 0.8 10 ^3/uL (0.4-5.4); Lymphocytes % (auto) 7.7 % (10.0-50.0); Mean Corpuscular Hemoglobin 33.1 pg (28.0-32.0); Mean Corpuscular Hgb Conc. 35.1 g/dL (32.0-36.0); Mean Corpuscular Volume 94.4 fL (80.0-100.0); Monocytes % (auto) 5.1 % (0.0-12.0); Neutrophils # (auto) 8.8 10 ^3/uL (1.6-8.6); Neutrophils % (auto) 87.1 % (37.0-80.0); Platelet Count (auto) 251 10^3/uL (140-450); Red Blood Cells 2.49 10^6/uL (4.0-5.20); Red Cell Distribution Width 13.7 % (11.8-14.3)
[2024-11-28 06:04] LABS: Chloride 107 mmol/L (98-107); Potassium 4.7 mmol/L (3.5-5.1); Sodium 137 mmol/L (136-145)
[2024-11-28 06:05] LABS: Anion Gap 14 (5-15)
[2024-11-28 06:10] LABS: BUN/Creatinine Ratio 10.4 (10.0-20.0)
[2024-11-28 06:11] LABS: Blood Urea Nitrogen 73 mg/dL (9-23); Carbon Dioxide 16 mmol/L (20-31); Glucose 131 mg/dL (74-106)
[2024-11-28] MEDS: MAGNESIUM OXIDE 400 MG TAB PO SCH (09:25)
--- NOTE | 2024-11-28 14:40 | DVHPNRES ---
Progress Note Date Seen: Nov 28, 2024 Resident Creating Document: CHARITO DEVRIES RESIDENT Has the PT tested + for MRSA If YES, has PT been informed?: No Medical Necessity Reason Pt with a Central, PICC or Fol: No Subjective Review of Systems This is a 44-year-old female with past medical history of CKD due to autosomal dominant polycystic kidney disease, gout, dyslipidemia, hypertension came to the hospital due to palpitation and generalized weakness since 2 days. She also reports shortness of breaths, and weakness. Per patient, she has a chronic anemia due to CKD, and has been using Epogen 5000 per week since 1.5 months, which at the beginning helped in improving the Hb, but later her Hb started declining back despite using Epogen. She denies fever, cough, nausea, vomiting, or any recent bowel and bladder habit changes. Patient seen and examined at bedside. Patient is alert and oriented x3. The patient is currently saturating 97% on room air. Patient has no complaints at this time and states that feels well overall. BNP showed a BUN of the 73 and a creatinine of 7.04. Hemoglobin also is still low at 8.2. Spoke with auto body repair technician which recommended to monitor one more day kidney function. Hyponatremia today is already corrected at 137. We continue to hold spironolactone and tolvaptan as this time. We will continue current medical management and monitor kidney function tomorrow. If there is no need for hemodialysis and kidney function slightly improved patient will possibly be discharged tomorrow. ROS Constitutional: Denies weight loss, fever and chills. HEENT: Denies changes in vision and hearing. Respiratory: Denies shortness of breath and cough Cardiovascular: Denies chest discomfort or palpitations GI: Denies abdominal pain, nausea, vomiting and diarrhea. : Denies dysuria and urinary frequency. Musculoskeletal: Denies myalgias and joint pain Skin: Denies rash and pruritus. Neurological: Denies dizziness, headache, vision or hearing problems Objective vital signs Vital Sign Date Time Temp Pulse Resp B/P (MAP) Pulse Ox O2 Delivery O2 Flow Rate FiO2 11/28/24 13:00 97.9 91 18 139/86 (103) 99 97.9 11/28/24 08:00 Room Air* 0 21 Total Intake and Output 11/27/24 11/27/24 11/28/24 15:00 23:00 07:00 Intake Total 1700 ml 1480 ml Balance 1700 ml 1480 ml medications Current Medications Medications Dose Ordered Sig/Chao Route Start Time Stop Time Status Last Admin Dose Admin Enoxaparin Sodium 30 mg DAILY SC 11/27/24 10:00 11/27/24 09:21 30 MG Sodium Chloride 1,000 ml @ 100 mls/hr Q10H IV 11/26/24 13:45 11/28/24 05:17 100 MLS/HR Acetaminophen/ Hydrocodone Bitart 1 tab Q6HPRN PRN PO 11/26/24 13:45 11/28/24 13:39 1 TAB Montelukast Sodium 10 mg HS PO 11/26/24 22:00 Pantoprazole Sodium 40 mg DAILY@0600 PO 11/27/24 06:00 11/28/24 05:39 40 MG Sennosides 17.2 mg HS PO 11/27/24 22:00 11/27/24 21:36 17.2 MG Magnesium Oxide 400 mg DAILY PO 11/28/24 10:00 11/28/24 09:25 400 MG Patient Own Medication 1 DAILY@0600 PO 11/29/24 06:00 Examination Physical Examination General: Patient alert and oriented in person, place and time. Patient following commands. HEENT: Normocephalic, atraumatic, moist mucous membranes Respiratory/pulmonary: Clear lungs bilaterally, no associated crackles or wheezes. Cardiovascular: Normal heart sounds S1 and S2 with no associated murmurs Abdomen: Abdomen nondistended, there is no pain to palpation in any of the abdominal quadrants, no palpable masses. Extremities: There is no peripheral edema present at the lower extremities. Peripheral Pulses: 3+ Radial (R). 3+ Radial (L). 3+ Dorsalis pedis (R). 3+ Dorsalis pedis(L) Skin: No rashes or pruritus, there is no sacral edema present at this time. Neurological: Intact cranial nerves with no focal neurologic deficits laboratory and microbiology Laboratory Tests 11/28/24 05:21 Test 11/28/24 05:21 Range/Units Serum Glucose 131 H 74-106 mg/dL Labs and/or images reviewed: Labs reviewed by me, Image(s) reviewed by me Problem List/Assessment/Plan Problem List/Assessment/Plan Assessment/Plan History of autosomal dominant polycystic kidney disease Possible SHAUNNA on CKD secondary to hemodynamically mediated /VMN Chronic anaemia secondary to CKD Chronic euvolemic hyponatremia likely secondary to SIADH Lt renal calculus without hydronephrosis Possible hypertensive heart disease Rule out CHF - CXR revealed no acute cardiopulmonary abnormality - BNP is normal - U/S of the kidney left renal calculus without hydronephrosis and bilateral renal cyst. - IV normal saline 75 ml/hr - Hold Tolvaptan 45 mg bid - Sodium chloride l tablet 1 gm daily. - Hold Spironolactone 100 mg daily. - Nephrology on board - Pending echo official reports Hypomagnesemia, repleted -Nephrology on board ordered Mg 400mg daily Suspected gout of left ankle -one dose of IV steroids, patient had a non specific allergic reaction -Monitor as outpatient Will monitor kidney function one more day as requested by Nephrology, If no need of HD and kidney function improves, could be DC tomorrow Plan discussed with Plan discussed with: Patient, Other (RN) Addendum Addendum Addendum I was physically present for the ifelds portions of the service provided to patient by THE RESIDENT. I have reviewed the documentation, discussed the case with resident and agree with the resident's documentation except as noted. Also the patient's clinical case was discussed with the patient's nurse. This medical document was created using an electronic medical record system with computerized dictation system. Although this document has been carefully reviewed, there might still be some phonetic and typographical errors. These areas are purely typographical due to imperfections of the software programs, and do not reflect any compromise in the patient's medical care. Late signature. Date of Service: Nov 28, 2024 Billing Provider: AL LANTIGUA MD Common Visit Codes: [id number] INP/OBS CARE(HIGH) CHARITO DEVRIES RESIDENT Nov 28, 2024 14:40 AL LANTIGUA MD Nov 29, 2024 07:12
[2024-11-28] MEDS: POLYETHYLENE GLYCOL 17 GM PWDR PO ONE (15:57)
--- NOTE | 2024-11-28 18:04 | DVHPN2 ---
Progress Note Date Seen: Nov 28, 2024 Has the PT tested + for MRSA If YES, has PT been informed?: No Medical Necessity Reason Pt with a Central, PICC or Fol: No Subjective Patient reports: No new complaints, Feels better Review of Systems: HEENT:Normal, CVS:Normal, RESPIRATORY:Normal, GI:Normal, :Normal, MSK:Normal, NEURO:Normal Objective vital signs Vital Sign Date Time Temp Pulse Resp B/P (MAP) Pulse Ox O2 Delivery O2 Flow Rate FiO2 11/28/24 13:00 97.9 91 18 139/86 (103) 99 97.9 11/28/24 08:00 Room Air* 0 21 Total Intake and Output 11/27/24 11/27/24 11/28/24 15:00 23:00 07:00 Intake Total 1700 ml 1480 ml Balance 1700 ml 1480 ml medications Current Medications Medications Dose Ordered Sig/Chao Route Start Time Stop Time Status Last Admin Dose Admin Enoxaparin Sodium 30 mg DAILY SC 11/27/24 10:00 11/27/24 09:21 30 MG Sodium Chloride 1,000 ml @ 100 mls/hr Q10H IV 11/26/24 13:45 11/28/24 05:17 100 MLS/HR Acetaminophen/ Hydrocodone Bitart 1 tab Q6HPRN PRN PO 11/26/24 13:45 11/28/24 13:39 1 TAB Montelukast Sodium 10 mg HS PO 11/26/24 22:00 Pantoprazole Sodium 40 mg DAILY@0600 PO 11/27/24 06:00 11/28/24 05:39 40 MG Sennosides 17.2 mg HS PO 11/27/24 22:00 11/27/24 21:36 17.2 MG Magnesium Oxide 400 mg DAILY PO 11/28/24 10:00 11/28/24 09:25 400 MG Patient Own Medication 1 DAILY@0600 PO 11/29/24 06:00 Future Hold Examination: GENERAL:Normal, HEENT:Normal, NECK:Normal, LUNGS:Normal, CVS:Normal, ABDOMEN:Normal, MSK:Normal, SKIN:Normal, NEURO:Normal, :Normal laboratory and microbiology Laboratory Tests 11/28/24 05:21 Test 11/28/24 05:21 Range/Units Serum Glucose 131 H 74-106 mg/dL Problem List/Assessment/Plan Problem List/Assessment/Plan Acute kidney injury on Chronic kidney disease 4/5 hemodynamic mediated etiology --reports baseline creatinine is in four range Hyponatremia Autosomal dominant polycystic kidney disease follows closely Hypertension Metabolic acidosis Anemia Recommendations Stop spironolactone now and after discharge NS IV as ordered Hold tolvaptan now We will monitor renal function closely epogen sc no uremic symptoms,,no emergent indication for dialysis pt closely monitored by Plan discussed with: Patient My Orders My Orders Orders - JENN LAWRENCE MD Procedure Category Date Status Time Magnesium Oxide PHA 11/28/24 In Process Tablet (Mag-Ox Tablet) 10:00 Sodium Bicarb Tab PHA 11/28/24 Transmitted 22:00 JENN LAWRENCE MD Nov 28, 2024 18:04
[2024-11-28] MEDS: SODIUM BICARBONATE 650 MG TAB PO SCH (21:55)
[2024-11-29] VITALS (7 sets, daily range): BP systolic 120–162; BP diastolic 82–99; PULSE 73–100; RESP 16–20; TEMP 97.6–98.6; O2SAT 90–100
[2024-11-29] MEDS ORDERED: TOLVAPTAN 45 MG PO SCH (06:00)
--- NOTE | 2024-11-29 06:53 | DVHPNRES ---
Progress Note Date Seen: Nov 29, 2024 Resident Creating Document: JUSTIN DONALD RESIDENT Has the PT tested + for MRSA If YES, has PT been informed?: No Medical Necessity Reason Pt with a Central, PICC or Fol: No Subjective Review of Systems This is a 44-year-old female with past medical history of CKD due to autosomal dominant polycystic kidney disease, gout, dyslipidemia, hypertension came to the hospital due to palpitation and generalized weakness since 2 days. She also reports shortness of breaths, and weakness. Per patient, she has a chronic anemia due to CKD, and has been using Epogen 5000 per week since 1.5 months, which at the beginning helped in improving the Hb, but later her Hb started declining back despite using Epogen. She denies fever, cough, nausea, vomiting, or any recent bowel and bladder habit changes. Patient seen and examined at the bedside. A&O x4, had a small bowel movement. Feels abdominal discomfort. Head lactulose 30 mL p.o. daily along with senna. BUN/creatinine 65/7. P.o. tamsulosin added for left renal calculus 5 mm. No indication of hemodialysis at this point per Nephrology. Hold spironolactone and tolvaptan. Objective vital signs Vital Sign Date Time Temp Pulse Resp B/P (MAP) Pulse Ox O2 Delivery O2 Flow Rate FiO2 11/29/24 05:00 97.8 73 20 120/82 (95) 98 97.8 11/28/24 20:00 Room Air* 0 21 Total Intake and Output 11/28/24 11/28/24 11/29/24 15:00 23:00 07:00 Intake Total 200 ml 1350 ml 450 ml Output Total 0 ml 400 ml Balance 200 ml 1350 ml 50 ml medications Current Medications Medications Dose Ordered Sig/Chao Route Start Time Stop Time Status Last Admin Dose Admin Enoxaparin Sodium 30 mg DAILY SC 11/27/24 10:00 11/27/24 09:21 30 MG Sodium Chloride 1,000 ml @ 100 mls/hr Q10H IV 11/26/24 13:45 11/28/24 21:56 100 MLS/HR Acetaminophen/ Hydrocodone Bitart 1 tab Q6HPRN PRN PO 11/26/24 13:45 11/28/24 19:49 1 TAB Montelukast Sodium 10 mg HS PO 11/26/24 22:00 Pantoprazole Sodium 40 mg DAILY@0600 PO 11/27/24 06:00 11/29/24 05:48 40 MG Sennosides 17.2 mg HS PO 11/27/24 22:00 11/28/24 21:46 17.2 MG Magnesium Oxide 400 mg DAILY PO 11/28/24 10:00 11/28/24 09:25 400 MG Patient Own Medication 1 DAILY@0600 PO 11/29/24 06:00 Hold Sodium Bicarbonate 650 mg TID PO 11/28/24 22:00 11/29/24 05:48 650 MG Examination Patient lying in bed, sitting comfortably in the bed, well conversational General: Well-built, afebrile, palor, mucosae are moist Cardiovascular: Regular S1 and S2. No murmurs, gallops or rubs. No JVD elevation. No pedal edema Respiratory: Normal B/L air entry on room air. Clear lung sounds on auscultation Abdomen: Soft, nontender, nondistended, normoactive bowel sounds, no rebound tenderness, no organomegaly, no masses Genitourinary: Deferred MSK/skin: Mobilizes 4 limbs. Skin is dry and warm Neurological: No motor, no sensitive deficits, normal speech. Pupils are isocoric and reactive. Psych/Mental Status: A/Ox3 laboratory and microbiology Test 11/29/24 05:56 Range/Units Serum Glucose Pending Labs and/or images reviewed: Labs reviewed by me, Image(s) reviewed by me Problem List/Assessment/Plan Problem List/Assessment/Plan Progressive autosomal dominant polycystic kidney disease Acute kidney injury likely vasomotor superimposed on CKD Anemia of chronic disease secondary to CKD Hyponatremia-resolved Left renal calculus without hydronephrosis - 5 mm - holding spironolactone 100 mg and tolvaptan 45 mg b.i.d. - IV NS 75 mL/hour - nephrology: Discussed risks and benefits of hemodialysis with the patient - discontinued sodium chloride 1 tablet 1 g daily - tamsulosin 0.4 mg daily - sodium bicarbonate 650 mg TID started by Nephrology Hypomagnesemia, repleted -Nephrology on board ordered Mg 400mg daily Suspected gout of left ankle -one dose of IV steroids, patient had a non specific allergic reaction -Monitor as outpatient ? Gerd - started pantoprazole and Carafate Echocardiogram report pending Diet: Renal DVT prophylaxis: Enoxaparin 30 mg daily plus SCDs Plan discussed with patient in which all questions have been answered Case discussed with Dr. Dumont Plan discussed with: Patient Date of Service: Nov 29, 2024 Billing Provider: DWIGHT MAXWELL MD Common Visit Codes: [id number] INP/OBS CARE(HIGH) JUSTIN DONALD RESIDENT Nov 29, 2024 06:53 DWIGHT MAXWELL MD Nov 30, 2024 09:51
[2024-11-29 07:25] LABS: Alanine Aminotransferase 15 U/L (7-40); Albumin 4.2 g/dL (3.2-4.8); Alkaline Phosphatase 76 U/L (46-116); Anion Gap 13 (5-15); BUN/Creatinine Ratio 9.2 (10.0-20.0); Basophils # (auto) 0.1 10 ^3/uL (0-0.2); Calcium 9.7 mg/dL (8.7-10.4); Eosinophils # (auto) 0.2 10 ^3/uL (0-0.8); Glucose 85 mg/dL (74-106); Hemoglobin 8.2 g/dL (12.2-16.2); Lymphocytes # (auto) 1.6 10 ^3/uL (0.4-5.4); Monocytes # (auto) 0.3 10 ^3/uL (0-1.3); Potassium 4.7 mmol/L (3.5-5.1); Sodium 141 mmol/L (136-145)
[2024-11-29 07:26] LABS: Total Protein 6.7 g/dL (5.7-8.2)
[2024-11-29 07:28] LABS: Basophils % (auto) 1.1 % (0.0-2.0); Eosinophils % (auto) 3.6 % (0.0-7.0); Hematocrit 23.8 % (36.0-46.0); Lymphocytes % (auto) 27.3 % (10.0-50.0); Mean Corpuscular Hemoglobin 33.2 pg (28.0-32.0); Mean Corpuscular Hgb Conc. 34.5 g/dL (32.0-36.0); Mean Corpuscular Volume 96.1 fL (80.0-100.0); Monocytes % (auto) 5.2 % (0.0-12.0); Neutrophils # (auto) 3.7 10 ^3/uL (1.6-8.6); Neutrophils % (auto) 62.8 % (37.0-80.0); Nucleated Red Blood Cells % 0.1 %; Platelet Count (auto) 252 10^3/uL (140-450); Red Blood Cells 2.47 10^6/uL (4.0-5.20); Red Cell Distribution Width 13.8 % (11.8-14.3); White Blood Cell 5.9 10^3/uL (4.4-10.8)
[2024-11-29 07:33] LABS: Aspartate Aminotransferase 11 U/L (13-40); Bilirubin, Total 0.2 mg/dL (0.2-1.0); Blood Urea Nitrogen 65 mg/dL (9-23); Carbon Dioxide 18 mmol/L (20-31); Chloride 110 mmol/L (98-107); Magnesium 1.6 mg/dL (1.6-2.6)
--- NOTE | 2024-11-29 11:19 | DVHPN2 ---
Progress Note Date Seen: Nov 29, 2024 Has the PT tested + for MRSA If YES, has PT been informed?: No Medical Necessity Reason Pt with a Central, PICC or Fol: No Subjective Patient reports: No new complaints Other Systems: Patient seen and examined by myself today in follow-up Objective vital signs Vital Sign Date Time Temp Pulse Resp B/P (MAP) Pulse Ox O2 Delivery O2 Flow Rate FiO2 11/29/24 08:30 97.6 98 16 162/98 (119) 100 97.6 11/29/24 07:30 Room Air* 0 21 Total Intake and Output 11/28/24 11/28/24 11/29/24 15:00 23:00 07:00 Intake Total 200 ml 1350 ml 450 ml Output Total 0 ml 400 ml Balance 200 ml 1350 ml 50 ml medications Current Medications Medications Dose Ordered Sig/Chao Route Start Time Stop Time Status Last Admin Dose Admin Enoxaparin Sodium 30 mg DAILY SC 11/27/24 10:00 11/27/24 09:21 30 MG Sodium Chloride 1,000 ml @ 100 mls/hr Q10H IV 11/26/24 13:45 11/29/24 07:50 100 MLS/HR Acetaminophen/ Hydrocodone Bitart 1 tab Q6HPRN PRN PO 11/26/24 13:45 11/29/24 10:53 1 TAB Montelukast Sodium 10 mg HS PO 11/26/24 22:00 Pantoprazole Sodium 40 mg DAILY@0600 PO 11/27/24 06:00 11/29/24 05:48 40 MG Sennosides 17.2 mg HS PO 11/27/24 22:00 11/28/24 21:46 17.2 MG Magnesium Oxide 400 mg DAILY PO 11/28/24 10:00 11/29/24 10:51 400 MG Patient Own Medication 1 DAILY@0600 PO 11/29/24 06:00 Hold Sodium Bicarbonate 650 mg TID PO 11/28/24 22:00 11/29/24 05:48 650 MG Tamsulosin HCl 0.4 mg QPM PO 11/29/24 18:00 Lactulose 30 ml DAILY PO 11/30/24 10:00 Examination: LUNGS:Normal, CVS:Normal, MSK:Normal laboratory and microbiology Laboratory Tests 11/29/24 05:56 Test 11/29/24 05:56 Range/Units Serum Glucose 85 74-106 mg/dL Problem List/Assessment/Plan Problem List/Assessment/Plan End-stage renal disease secondary to autosomal dominant polycystic kidney Hyponatremia, resolve Hypertension Metabolic acidosis Anemia of chronic Kidney disease Recommendations I discussed risk and benefit hemodialysis with the patient, patient will talk to her Blood pressure control Renal diet Fluid restriction Check be surface antigen We will continue to follow up Plan discussed with: Patient BAILEY MARY MD Nov 29, 2024 11:19
[2024-11-29] MEDS: TAMSULOSIN HYDROCHLORIDE 0.4 MG CAP PO SCH (18:12)
[2024-11-29] MEDS: PANTOPRAZOLE 40 MG/10 ML VIAL INJ IV ONE (18:12)
[2024-11-29] MEDS: SUCRALFATE 1 GM TAB PO ONE (18:12)
[2024-11-29] MEDS: MAGNESIUM SULFATE 1GM/100ML 100 ML IV SCH (18:13)
[2024-11-29 18:38] LABS: INR 0.99 (0.9-1.15); Partial Thromboplastin Time 27.5 SEC (24.5-34.5); Prothrombin Time 10.5 sec (9.3-11.8)
[2024-11-29] MEDS: LACTULOSE 20Gm/30ML SOLN PO SCH (21:28)
[2024-11-30] VITALS (10 sets, daily range): BP systolic 109–165; BP diastolic 67–109; PULSE 65–92; RESP 12–20; TEMP 97.4–98.3; O2SAT 93–100
--- NOTE | 2024-11-30 06:32 | DVHPNRES ---
Progress Note Date Seen: Nov 30, 2024 Resident Creating Document: JUSTIN DONALD RESIDENT Has the PT tested + for MRSA If YES, has PT been informed?: No Medical Necessity Reason Pt with a Central, PICC or Fol: Yes The following are medically ne: PICC Line Subjective Review of Systems This is a 44-year-old female with past medical history of CKD due to autosomal dominant polycystic kidney disease, gout, dyslipidemia, hypertension came to the hospital due to palpitation and generalized weakness since 2 days. She also reports shortness of breaths, and weakness. Per patient, she has a chronic anemia due to CKD, and has been using Epogen 5000 per week since 1.5 months, which at the beginning helped in improving the Hb, but later her Hb started declining back despite using Epogen. She denies fever, cough, nausea, vomiting, or any recent bowel and bladder habit changes. Patient seen and examined at the bedside. A&O x4, underwent IR guided catheter placement. Hemodialysis today. Hold spironolactone and tolvaptan. Objective vital signs Vital Sign Date Time Temp Pulse Resp B/P (MAP) Pulse Ox O2 Delivery O2 Flow Rate FiO2 11/30/24 05:00 97.9 69 20 109/67 (81) 96 97.9 11/29/24 20:00 Room Air* 0 21 Total Intake and Output 11/29/24 11/29/24 11/30/24 15:00 23:00 07:00 Intake Total 500 ml 700 ml Balance 500 ml 700 ml medications Current Medications Medications Dose Ordered Sig/Chao Route Start Time Stop Time Status Last Admin Dose Admin Enoxaparin Sodium 30 mg DAILY SC 11/27/24 10:00 11/27/24 09:21 30 MG Sodium Chloride 1,000 ml @ 100 mls/hr Q10H IV 11/26/24 13:45 11/30/24 04:12 100 MLS/HR Acetaminophen/ Hydrocodone Bitart 1 tab Q6HPRN PRN PO 11/26/24 13:45 11/30/24 04:26 1 TAB Montelukast Sodium 10 mg HS PO 11/26/24 22:00 Sennosides 17.2 mg HS PO 11/27/24 22:00 11/29/24 21:27 17.2 MG Magnesium Oxide 400 mg DAILY PO 11/28/24 10:00 11/29/24 10:51 400 MG Patient Own Medication 1 DAILY@0600 PO 11/29/24 06:00 Hold Sodium Bicarbonate 650 mg TID PO 11/28/24 22:00 11/29/24 21:27 650 MG Tamsulosin HCl 0.4 mg QPM PO 11/29/24 18:00 11/29/24 18:12 0.4 MG Pantoprazole Sodium 40 mg DAILY IV 11/30/24 10:00 Lactulose 10 ml BID PO 11/29/24 22:00 11/29/24 21:28 10 ML Examination Patient lying in bed, sitting comfortably in the bed, well conversational General: Well-built, afebrile, palor, mucosae are moist Cardiovascular: Regular S1 and S2. No murmurs, gallops or rubs. No JVD elevation. No pedal edema Respiratory: Normal B/L air entry on room air. Clear lung sounds on auscultation Abdomen: Soft, nontender, nondistended, normoactive bowel sounds, no rebound tenderness, no organomegaly, no masses Genitourinary: Deferred MSK/skin: Mobilizes 4 limbs. Skin is dry and warm Neurological: No motor, no sensitive deficits, normal speech. Pupils are isocoric and reactive. Psych/Mental Status: A/Ox3 laboratory and microbiology Laboratory Tests 11/29/24 05:56 Test 11/29/24 05:56 Range/Units Serum Glucose 85 74-106 mg/dL Labs and/or images reviewed: Labs reviewed by me, Image(s) reviewed by me Problem List/Assessment/Plan Problem List/Assessment/Plan ESRD secondary to autosomal dominant polycystic kidney disease Acute kidney injury likely vasomotor superimposed on CKD Anemia of chronic disease secondary to CKD Hyponatremia-resolved Nephrolithiasis-Left renal calculus without hydronephrosis - 5 mm Metabolic acidosis Hypophosphatemia Secondary hyperparathyroidism - holding spironolactone 100 mg and tolvaptan 45 mg b.i.d. - IV NS 75 mL/hour - nephrology: Continue with UF to 3 L as tolerated - discontinued sodium chloride 1 tablet 1 g daily - tamsulosin 0.4 mg daily - sodium bicarbonate 650 mg TID started by Nephrology - Renvela 800 mg p.o. t.i.d. with meals Hypomagnesemia, repleted -Nephrology on board ordered Mg 400mg daily Suspected gout of left ankle -one dose of IV steroids, patient had a non specific allergic reaction -Monitor as outpatient ? Gerd - started pantoprazole and Carafate Echocardiogram report pending Diet: Renal DVT prophylaxis: Enoxaparin 30 mg daily plus SCDs manager field services consulted for chair time Plan discussed with patient in which all questions have been answered Case discussed with Dr. Dumont Plan discussed with: Patient My Orders My Orders Orders - JUSTIN DONALD Procedure Category Date Status Time Tamsulosin PHA 11/29/24 In Process Hydrochloride (Flomax) 18:00 Sequential BIA 11/29/24 In Process Compression Device 11:50 * Radiologist Consult CONS 11/29/24 Transmitted 15:09 Basic Metabolic Panel LAB 11/30/24 Logged 04:00 Complete Blood Count LAB 11/30/24 Logged 04:00 Date of Service: Nov 30, 2024 Billing Provider: DWIGHT MAXWELL MD Common Visit Codes: [id number] INP/OBS CARE(HIGH) JUSTIN DONALD Nov 30, 2024 06:32 DWIGHT MAXWELL MD Dec 05, 2024 23:57
[2024-11-30 07:13] LABS: Calcium 10.3 mg/dL (8.7-10.4); Potassium 4.8 mmol/L (3.5-5.1); Sodium 142 mmol/L (136-145)
[2024-11-30 07:14] LABS: Anion Gap 13 (5-15)
[2024-11-30 07:19] LABS: Glucose 98 mg/dL (74-106)
[2024-11-30 07:29] LABS: Basophils # (auto) 0.1 10 ^3/uL (0-0.2); Eosinophils # (auto) 0.3 10 ^3/uL (0-0.8); Hemoglobin 8.2 g/dL (12.2-16.2); Lymphocytes # (auto) 1.2 10 ^3/uL (0.4-5.4); Mean Corpuscular Volume 96.2 fL (80.0-100.0); White Blood Cell 5.4 10^3/uL (4.4-10.8)
[2024-11-30 07:32] LABS: Basophils % (auto) 1.8 % (0.0-2.0); Hematocrit 23.9 % (36.0-46.0); Lymphocytes % (auto) 22.9 % (10.0-50.0); Mean Corpuscular Hemoglobin 33.1 pg (28.0-32.0); Mean Corpuscular Hgb Conc. 34.4 g/dL (32.0-36.0); Monocytes # (auto) 0.3 10 ^3/uL (0-1.3); Monocytes % (auto) 6.1 % (0.0-12.0); Neutrophils # (auto) 3.5 10 ^3/uL (1.6-8.6); Neutrophils % (auto) 64.2 % (37.0-80.0); Platelet Count (auto) 247 10^3/uL (140-450); Red Blood Cells 2.49 10^6/uL (4.0-5.20); Red Cell Distribution Width 13.9 % (11.8-14.3)
[2024-11-30 07:33] LABS: Carbon Dioxide 18 mmol/L (20-31); Chloride 111 mmol/L (98-107)
[2024-11-30 07:34] LABS: BUN/Creatinine Ratio 9.6 (10.0-20.0); Blood Urea Nitrogen 63 mg/dL (9-23)
[2024-11-30] MEDS: HEPARIN SODIUM (PORCINE) 5000 UNITS/ML 1ML VIAL ONE (09:36)
[2024-11-30] MEDS: LIDOCAINE 2%HCL (LOCAL ANESTH.) INJ 20ML MDV ONE (09:37)
[2024-11-30] MEDS: fentaNYL CITRATE 100 MCG/2 ML VL ONE (09:37)
[2024-11-30] MEDS: MIDAZOLAM HCL 2MG/2ML 2ml VIAL (1mg/ml) ONE (09:37)
[2024-11-30] MEDS ORDERED: LACTULOSE 20Gm/30ML SOLN PO SCH (10:00)
[2024-11-30] MEDS: PANTOPRAZOLE 40 MG/10 ML VIAL INJ IV SCH (10:00)
[2024-11-30] MEDS: ceFAZolin 1GM/50ML 50 ML IV ONE (10:18)
--- NOTE | 2024-11-30 12:31 | DVH ---
PROCEDURE: TUNNELED CENTRAL VENOUS CATHETER PLACEMENT USING FLUOROSCOPY AND ULTRASOUND HISTORY: HD CATH DOCUMENTATION: Informed consent was obtained and a procedural time out was performed. SEDATION: Moderate sedation was utilized during the procedure. The patient received benzodiazepines a nd opioids, the dosing of which was documented in the patient s permanent medical record. Pre-sedatio n history and evaluation revealed no contraindications to sedation. The patient s level of consciousn ess and physiologic status was monitored continuously by the physician and nursing staff throughout t he procedure. Total intra-service moderate sedation time was 30 minutes. FLUORO: 0.1 minutes, 2 mGy air kerma, TECHNIQUE: The skin over the right internal jugular vein and chest was sterilely prepped, draped and anesthetized with 1% lidocaine with epinephrine. The vein was accessed with a 21-gauge needle under u ltrasound guidance with an image archived in the PACS. A guidewire was then passed into the central v eins under fluoroscopy. The subcutaneous tunnel was anesthetized with 1% lidocaine and the catheter w as tunneled to the venous entry site, cut to the appropriate length, and inserted through a peel away sheath. A final radiograph was obtained, the catheter was flushed and secured in place, and sterile dressings were applied. Procedural physician complied with all CLIP criteria, including preprocedural hand hygiene and use of maximum sterile barriers including hat, gown, sterile gloves, mask, and head to toe drape. The neck and chest were prepped with chlorhexidine solution and draped in the usual sterile fashion. The prep solution was allowed to dry prior to puncture. FINDINGS: Ultrasound demonstrates a patent right internal jugular vein. The tip of the catheter was p laced near the cavoatrial junction. No complications are identified. IMPRESSION: SUCCESSFUL 14.5 FAROESE DUAL-LUMEN POWER INJECTABLE TUNNELED CENTRAL VENOUS CATHETER PLACEMENT. THE CA THETER IS READY FOR IMMEDIATE USE.
--- NOTE | 2024-11-30 12:49 | DVHPN2 ---
Progress Note Date Seen: Nov 30, 2024 Has the PT tested + for MRSA If YES, has PT been informed?: No Medical Necessity Reason Pt with a Central, PICC or Fol: No Subjective Patient reports: No new complaints Other Systems: Patient seen and examined by myself today in follow-up Patient examined hemodialysis, blood pressure stable Objective vital signs Vital Sign Date Time Temp Pulse Resp B/P (MAP) Pulse Ox O2 Delivery O2 Flow Rate FiO2 11/30/24 09:00 97.4 77 17 140/90 (107) 99 97.4 11/30/24 08:15 Room Air* 0 21 Total Intake and Output 11/29/24 11/29/24 11/30/24 15:00 23:00 07:00 Intake Total 500 ml 700 ml Balance 500 ml 700 ml medications Current Medications Medications Dose Ordered Sig/Chao Route Start Time Stop Time Status Last Admin Dose Admin Enoxaparin Sodium 30 mg DAILY SC 11/27/24 10:00 11/27/24 09:21 30 MG Sodium Chloride 1,000 ml @ 100 mls/hr Q10H IV 11/26/24 13:45 11/30/24 04:12 100 MLS/HR Acetaminophen/ Hydrocodone Bitart 1 tab Q6HPRN PRN PO 11/26/24 13:45 11/30/24 11:37 1 TAB Montelukast Sodium 10 mg HS PO 11/26/24 22:00 Sennosides 17.2 mg HS PO 11/27/24 22:00 11/29/24 21:27 17.2 MG Magnesium Oxide 400 mg DAILY PO 11/28/24 10:00 11/30/24 11:40 400 MG Patient Own Medication 1 DAILY@0600 PO 11/29/24 06:00 Hold Sodium Bicarbonate 650 mg TID PO 11/28/24 22:00 11/29/24 21:27 650 MG Tamsulosin HCl 0.4 mg QPM PO 11/29/24 18:00 11/29/24 18:12 0.4 MG Pantoprazole Sodium 40 mg DAILY IV 11/30/24 10:00 11/30/24 11:40 40 MG Lactulose 10 ml BID PO 11/29/24 22:00 11/30/24 11:36 10 ML Examination: LUNGS:Normal, CVS:Normal, MSK:Normal laboratory and microbiology Laboratory Tests 11/30/24 06:11 Test 11/30/24 06:11 Range/Units Serum Glucose 98 74-106 mg/dL Problem List/Assessment/Plan Problem List/Assessment/Plan End-stage renal disease secondary to autosomal dominant polycystic kidney Hyponatremia, due to excess H2O 0 Hypertension Metabolic acidosis Nephrolithiasis, nonobstructing Hyperphosphatemia Hypomagnesemia Anemia of chronic Kidney disease Recommendations Continue with UF to 3 L as tolerated Epogen 67468 IV post hemodialysis Blood pressure control Renal diet Renvela 800 mg p.o. t.i.d. with meals Magnesium sulfate IV piggyback Fluid restriction Social service consult for outpatient hemodialysis chair time at [facility] dialysis We will continue to follow up Plan discussed with: Patient My Orders My Orders Orders - BAILEY MARY MD Procedure Category Date Status Time Hemodialysis Orders ORDERS 11/30/24 Transmitted 07:00 Dialysis Nursing BIA 11/30/24 In Process Message 07:00 Document Fluid Input BIA 11/30/24 In Process And Outpu 07:00 Epoetin Dilip-Epbx PHA 11/30/24 In Process (Retacrit) 21:00 BAILEY MARY MD Nov 30, 2024 12:49
[2024-11-30] MEDS: SODIUM CHL 0.9% 1000 ML BAG XX ONE (14:40)
[2024-11-30] MEDS: SEVELAMER 800 MG TAB PO SCH (18:01)
[2024-11-30] MEDS: amLODIPine BESYLATE 5 MG TAB PO ONE (20:31)
[2024-11-30] MEDS: EPOETIN ALFA-EPBX 10,000 UNIT/1ML VIAL SC ONE (20:32)
[2024-12-01] VITALS (8 sets, daily range): BP systolic 112–139; BP diastolic 74–90; PULSE 80–99; RESP 16–19; TEMP 97.6–98.3; O2SAT 96–99
[2024-12-01 06:10] LABS: Basophils # (auto) 0.1 10 ^3/uL (0-0.2); Basophils % (auto) 1.4 % (0.0-2.0); Eosinophils # (auto) 0.2 10 ^3/uL (0-0.8); Eosinophils % (auto) 3.7 % (0.0-7.0); Hematocrit 24.3 % (36.0-46.0); Hemoglobin 8.3 g/dL (12.2-16.2); Lymphocytes # (auto) 1.5 10 ^3/uL (0.4-5.4); Lymphocytes % (auto) 25.9 % (10.0-50.0); Mean Corpuscular Hemoglobin 32.5 pg (28.0-32.0); Mean Corpuscular Hgb Conc. 34.4 g/dL (32.0-36.0); Mean Corpuscular Volume 94.6 fL (80.0-100.0); Monocytes # (auto) 0.4 10 ^3/uL (0-1.3); Monocytes % (auto) 6.6 % (0.0-12.0); Neutrophils # (auto) 3.6 10 ^3/uL (1.6-8.6); Neutrophils % (auto) 62.4 % (37.0-80.0); Nucleated Red Blood Cells % 0.1 %; Platelet Count (auto) 242 10^3/uL (140-450); Red Blood Cells 2.56 10^6/uL (4.0-5.20); Red Cell Distribution Width 13.8 % (11.8-14.3); White Blood Cell 5.7 10^3/uL (4.4-10.8)
[2024-12-01 06:26] LABS: Alanine Aminotransferase 12 U/L (7-40); Alkaline Phosphatase 68 U/L (46-116); Anion Gap 10 (5-15); BUN/Creatinine Ratio 7.4 (10.0-20.0); Carbon Dioxide 26 mmol/L (20-31); Chloride 103 mmol/L (98-107); Glucose 104 mg/dL (74-106); Potassium 4.3 mmol/L (3.5-5.1); Sodium 139 mmol/L (136-145)
[2024-12-01 06:27] LABS: Albumin 4.1 g/dL (3.2-4.8)
[2024-12-01 06:28] LABS: Total Protein 6.6 g/dL (5.7-8.2)
[2024-12-01 06:48] LABS: Aspartate Aminotransferase 11 U/L (13-40); Bilirubin, Total 0.3 mg/dL (0.2-1.0); Blood Urea Nitrogen 34 mg/dL (9-23)
[2024-12-01] MEDS: amLODIPine BESYLATE 5 MG TAB PO SCH (09:10)
--- NOTE | 2024-12-01 10:25 | DVHPN2 ---
Progress Note Date Seen: Dec 01, 2024 Has the PT tested + for MRSA If YES, has PT been informed?: No Medical Necessity Reason Pt with a Central, PICC or Fol: Yes The following are medically ne: PICC Line Subjective Patient reports: No new complaints Objective vital signs Vital Sign Date Time Temp Pulse Resp B/P (MAP) Pulse Ox O2 Delivery O2 Flow Rate FiO2 12/01/24 09:10 112/82 12/01/24 09:00 98.0 81 16 97 98.0 11/30/24 20:00 Room Air* 0 21 Total Intake and Output 11/30/24 11/30/24 12/01/24 15:00 23:00 07:00 Intake Total 1200 ml 600 ml Balance 1200 ml 600 ml medications Current Medications Medications Dose Ordered Sig/Chao Route Start Time Stop Time Status Last Admin Dose Admin Enoxaparin Sodium 30 mg DAILY SC 11/27/24 10:00 11/27/24 09:21 30 MG Sodium Chloride 1,000 ml @ 100 mls/hr Q10H IV 11/26/24 13:45 11/30/24 04:12 100 MLS/HR Acetaminophen/ Hydrocodone Bitart 1 tab Q6HPRN PRN PO 11/26/24 13:45 12/01/24 06:21 1 TAB Montelukast Sodium 10 mg HS PO 11/26/24 22:00 Sennosides 17.2 mg HS PO 11/27/24 22:00 11/30/24 21:01 17.2 MG Magnesium Oxide 400 mg DAILY PO 11/28/24 10:00 12/01/24 09:07 400 MG Patient Own Medication 1 DAILY@0600 PO 11/29/24 06:00 Hold Tamsulosin HCl 0.4 mg QPM PO 11/29/24 18:00 11/30/24 18:01 0.4 MG Pantoprazole Sodium 40 mg DAILY IV 11/30/24 10:00 12/01/24 09:07 40 MG Lactulose 10 ml BID PO 11/29/24 22:00 12/01/24 09:07 10 ML Sevelamer HCl 800 mg TIDWM PO 11/30/24 18:00 12/01/24 09:07 800 MG Amlodipine Besylate 10 mg DAILY PO 12/01/24 10:00 12/01/24 09:10 10 MG Examination: LUNGS:Normal, CVS:Normal, MSK:Normal laboratory and microbiology Laboratory Tests 12/01/24 05:33 Test 12/01/24 05:33 Range/Units Serum Glucose 104 74-106 mg/dL Problem List/Assessment/Plan Problem List/Assessment/Plan End-stage renal disease secondary to autosomal dominant polycystic kidney Hyponatremia, due to excess H2O 0 Hypertension Metabolic acidosis Nephrolithiasis, nonobstructing Hyperphosphatemia Hypomagnesemia Anemia of chronic Kidney disease Recommendations Hemodialysis tomorrow Epogen [id number] IV post hemodialysis Blood pressure control Renal diet Renvela 800 mg p.o. t.i.d. with meals Magnesium sulfate IV piggyback Fluid restriction Social service consult for outpatient hemodialysis chair time at [facility] dialysis Patient was cleared from Nephrology for discharge once chair time is available Plan discussed with: Patient My Orders My Orders Orders - BAILEY MARY MD Procedure Category Date Status Time Sevelamer (Renagel) PHA 11/30/24 In Process 18:00 BAILEY MARY MD Dec 01, 2024 10:25
--- NOTE | 2024-12-01 15:49 | DVHPN2 ---
Progress Note Date Seen: Dec 01, 2024 Resident Creating Document: JUSTIN DONALD RESIDENT Has the PT tested + for MRSA If YES, has PT been informed?: No Medical Necessity Reason Pt with a Central, PICC or Fol: Yes The following are medically ne: PICC Line Subjective Review of Systems This is a 44-year-old female with past medical history of CKD due to autosomal dominant polycystic kidney disease, gout, dyslipidemia, hypertension came to the hospital due to palpitation and generalized weakness since 2 days. She also reports shortness of breaths, and weakness. Per patient, she has a chronic anemia due to CKD, and has been using Epogen 5000 per week since 1.5 months, which at the beginning helped in improving the Hb, but later her Hb started declining back despite using Epogen. She denies fever, cough, nausea, vomiting, or any recent bowel and bladder habit changes. 11/30 - Patient seen and examined at the bedside. A&O x4, underwent IR guided catheter placement. Hemodialysis today. Hold spironolactone and tolvaptan. Started amlodipine 10 mg daily 12/01 - patient seen and examined at the bedside. No acute distress. Pending hepatitis panel, waiting chair time Objective vital signs Vital Sign Date Time Temp Pulse Resp B/P (MAP) Pulse Ox O2 Delivery O2 Flow Rate FiO2 12/01/24 13:00 97.7 99 18 130/88 (102) 96 97.7 12/01/24 08:10 Room Air* 0 21 Total Intake and Output 11/30/24 11/30/24 12/01/24 15:00 23:00 07:00 Intake Total 1200 ml 600 ml Balance 1200 ml 600 ml medications Current Medications Medications Dose Ordered Sig/Chao Route Start Time Stop Time Status Last Admin Dose Admin Enoxaparin Sodium 30 mg DAILY SC 11/27/24 10:00 11/27/24 09:21 30 MG Sodium Chloride 1,000 ml @ 100 mls/hr Q10H IV 11/26/24 13:45 11/30/24 04:12 100 MLS/HR Acetaminophen/ Hydrocodone Bitart 1 tab Q6HPRN PRN PO 11/26/24 13:45 12/01/24 12:28 1 TAB Montelukast Sodium 10 mg HS PO 11/26/24 22:00 Sennosides 17.2 mg HS PO 11/27/24 22:00 2/11/25 21:01 17.2 MG Magnesium Oxide 400 mg DAILY PO 11/28/24 10:00 12/01/24 09:07 400 MG Patient Own Medication 1 DAILY@0600 PO 11/29/24 06:00 Hold Tamsulosin HCl 0.4 mg QPM PO 11/29/24 18:00 11/30/24 18:01 0.4 MG Pantoprazole Sodium 40 mg DAILY IV 11/30/24 10:00 12/01/24 09:07 40 MG Lactulose 10 ml BID PO 11/29/24 22:00 12/01/24 09:07 10 ML Sevelamer HCl 800 mg TIDWM PO 11/30/24 18:00 12/01/24 12:27 800 MG Amlodipine Besylate 10 mg DAILY PO 12/01/24 10:00 12/01/24 09:10 10 MG Examination Patient lying in bed, sitting comfortably in the bed, well conversational General: Well-built, afebrile, palor, mucosae are moist. Right IJ tunnel cath Cardiovascular: Regular S1 and S2. No murmurs, gallops or rubs. No JVD elevation. No pedal edema Respiratory: Normal B/L air entry on room air. Clear lung sounds on auscultation Abdomen: Soft, nontender, nondistended, normoactive bowel sounds, no rebound tenderness, no organomegaly, no masses Genitourinary: Deferred MSK/skin: Mobilizes 4 limbs. Skin is dry and warm Neurological: No motor, no sensitive deficits, normal speech. Pupils are isocoric and reactive. Psych/Mental Status: A/Ox3 laboratory and microbiology Laboratory Tests 12/01/24 05:33 Test 12/01/24 05:33 Range/Units Serum Glucose 104 74-106 mg/dL Labs and/or images reviewed: Labs reviewed by me, Image(s) reviewed by me Problem List/Assessment/Plan Problem List/Assessment/Plan ESRD secondary to autosomal dominant polycystic kidney disease Acute kidney injury likely vasomotor superimposed on CKD Anemia of chronic disease secondary to CKD Hyponatremia-resolved Nephrolithiasis-Left renal calculus without hydronephrosis - 5 mm Metabolic acidosis Hypophosphatemia Secondary hyperparathyroidism - holding spironolactone 100 mg and tolvaptan 45 mg b.i.d. - IV NS 75 mL/hour - nephrology: Continue with UF to 3 L as tolerated - discontinued sodium chloride 1 tablet 1 g daily - tamsulosin 0.4 mg daily - sodium bicarbonate 650 mg TID started by Nephrology - Renvela 800 mg p.o. t.i.d. with meals Hypomagnesemia, repleted -Nephrology on board ordered Mg 400mg daily Suspected gout of left ankle -one dose of IV steroids, patient had a non specific allergic reaction -Monitor as outpatient ? Gerd - started pantoprazole and Carafate Echocardiogram report pending Diet: Renal DVT prophylaxis: Enoxaparin 30 mg daily plus SCDs guest services coordinator consulted for chair time Plan discussed with patient in which all questions have been answered Case discussed with Dr. Dumont Plan discussed with: Patient My Orders My Orders Orders - JUSTIN DONALD Procedure Category Date Status Time Amlodipine Tablet PHA 12/01/24 In Process (Norvasc Tablet) 10:00 JUSTIN DONALD Dec 01, 2024 15:49
--- NOTE | 2024-12-01 15:52 | DVHPNRES ---
Progress Note Date Seen: Dec 01, 2024 Resident Creating Document: JUSTIN DONALD RESIDENT Has the PT tested + for MRSA If YES, has PT been informed?: No Medical Necessity Reason Pt with a Central, PICC or Fol: Yes The following are medically ne: PICC Line Subjective Review of Systems This is a 44-year-old female with past medical history of CKD due to autosomal dominant polycystic kidney disease, gout, dyslipidemia, hypertension came to the hospital due to palpitation and generalized weakness since 2 days. She also reports shortness of breaths, and weakness. Per patient, she has a chronic anemia due to CKD, and has been using Epogen 5000 per week since 1.5 months, which at the beginning helped in improving the Hb, but later her Hb started declining back despite using Epogen. She denies fever, cough, nausea, vomiting, or any recent bowel and bladder habit changes. 11/30 - Patient seen and examined at the bedside. A&O x4, underwent IR guided catheter placement. Hemodialysis today. Hold spironolactone and tolvaptan. Started amlodipine 10 mg daily 12/01 - patient seen and examined at the bedside. No acute distress. Pending hepatitis panel, waiting chair time Objective vital signs Vital Sign Date Time Temp Pulse Resp B/P (MAP) Pulse Ox O2 Delivery O2 Flow Rate FiO2 12/01/24 13:00 97.7 99 18 130/88 (102) 96 97.7 12/01/24 08:10 Room Air* 0 21 Total Intake and Output 11/30/24 11/30/24 12/01/24 15:00 23:00 07:00 Intake Total 1200 ml 600 ml Balance 1200 ml 600 ml medications Current Medications Medications Dose Ordered Sig/Chao Route Start Time Stop Time Status Last Admin Dose Admin Enoxaparin Sodium 30 mg DAILY SC 11/27/24 10:00 11/27/24 09:21 30 MG Sodium Chloride 1,000 ml @ 100 mls/hr Q10H IV 11/26/24 13:45 11/30/24 04:12 100 MLS/HR Acetaminophen/ Hydrocodone Bitart 1 tab Q6HPRN PRN PO 11/26/24 13:45 12/01/24 12:28 1 TAB Montelukast Sodium 10 mg HS PO 11/26/24 22:00 Sennosides 17.2 mg HS PO 11/27/24 22:00 2/11/25 21:01 17.2 MG Magnesium Oxide 400 mg DAILY PO 11/28/24 10:00 12/01/24 09:07 400 MG Patient Own Medication 1 DAILY@0600 PO 11/29/24 06:00 Hold Tamsulosin HCl 0.4 mg QPM PO 11/29/24 18:00 11/30/24 18:01 0.4 MG Pantoprazole Sodium 40 mg DAILY IV 11/30/24 10:00 12/01/24 09:07 40 MG Lactulose 10 ml BID PO 11/29/24 22:00 12/01/24 09:07 10 ML Sevelamer HCl 800 mg TIDWM PO 11/30/24 18:00 12/01/24 12:27 800 MG Amlodipine Besylate 10 mg DAILY PO 12/01/24 10:00 12/01/24 09:10 10 MG Examination Patient lying in bed, sitting comfortably in the bed, well conversational General: Well-built, afebrile, palor, mucosae are moist. Right IJ tunnel cath Cardiovascular: Regular S1 and S2. No murmurs, gallops or rubs. No JVD elevation. No pedal edema Respiratory: Normal B/L air entry on room air. Clear lung sounds on auscultation Abdomen: Soft, nontender, nondistended, normoactive bowel sounds, no rebound tenderness, no organomegaly, no masses Genitourinary: Deferred MSK/skin: Mobilizes 4 limbs. Skin is dry and warm Neurological: No motor, no sensitive deficits, normal speech. Pupils are isocoric and reactive. Psych/Mental Status: A/Ox3 laboratory and microbiology Laboratory Tests 12/01/24 05:33 Test 12/01/24 05:33 Range/Units Serum Glucose 104 74-106 mg/dL Labs and/or images reviewed: Labs reviewed by me, Image(s) reviewed by me Problem List/Assessment/Plan Problem List/Assessment/Plan ESRD secondary to autosomal dominant polycystic kidney disease Acute kidney injury likely vasomotor superimposed on CKD Anemia of chronic disease secondary to CKD Hyponatremia-resolved Nephrolithiasis-Left renal calculus without hydronephrosis - 5 mm Metabolic acidosis Hypophosphatemia Secondary hyperparathyroidism - holding spironolactone 100 mg and tolvaptan 45 mg b.i.d. - IV NS 75 mL/hour - nephrology: Continue with UF to 3 L as tolerated - hemodialysis 11/30, next session 12/02 - discontinued sodium chloride 1 tablet 1 g daily - tamsulosin 0.4 mg daily - sodium bicarbonate 650 mg TID started by Nephrology - Renvela 800 mg p.o. t.i.d. with meals Hypomagnesemia, repleted -Nephrology on board ordered Mg 400mg daily Suspected gout of left ankle -one dose of IV steroids, patient had a non specific allergic reaction -Monitor as outpatient ? Gerd - started pantoprazole and Carafate Echocardiogram report pending Diet: Renal DVT prophylaxis: Enoxaparin 30 mg daily plus SCDs counseling services director consulted for chair time Plan discussed with patient in which all questions have been answered Case discussed with Dr. Dumont Plan discussed with: Patient My Orders My Orders Orders - JUSTIN DONALD Procedure Category Date Status Time Amlodipine Tablet PHA 12/01/24 In Process (Norvasc Tablet) 10:00 Basic Metabolic Panel LAB 12/02/24 Verified 04:00 Complete Blood Count LAB 12/02/24 Verified 04:00 Date of Service: Dec 01, 2024 Billing Provider: DWIGHT MAXWELL MD Common Visit Codes: [id number] INP/OBS CARE(HIGH) JUSTIN DONALD Dec 01, 2024 15:52 DWIGHT MAXWELL MD Dec 06, 2024 00:02
[2024-12-02] VITALS (8 sets, daily range): BP systolic 117–151; BP diastolic 69–94; PULSE 82–112; RESP 18–20; TEMP 97.6–99; O2SAT 94–99
[2024-12-02 06:07] LABS: Basophils # (auto) 0.1 10 ^3/uL (0-0.2); Eosinophils # (auto) 0.3 10 ^3/uL (0-0.8); Eosinophils % (auto) 5.9 % (0.0-7.0); Mean Corpuscular Hemoglobin 32.5 pg (28.0-32.0); Monocytes # (auto) 0.4 10 ^3/uL (0-1.3); Monocytes % (auto) 7.6 % (0.0-12.0); Red Cell Distribution Width 13.7 % (11.8-14.3)
[2024-12-02 06:09] LABS: Basophils % (auto) 1.9 % (0.0-2.0); Hematocrit 24.6 % (36.0-46.0); Hemoglobin 8.4 g/dL (12.2-16.2); Lymphocytes # (auto) 1.4 10 ^3/uL (0.4-5.4); Lymphocytes % (auto) 27.9 % (10.0-50.0); Mean Corpuscular Hgb Conc. 34.1 g/dL (32.0-36.0); Mean Corpuscular Volume 95.1 fL (80.0-100.0); Neutrophils # (auto) 2.9 10 ^3/uL (1.6-8.6); Neutrophils % (auto) 56.7 % (37.0-80.0); Platelet Count (auto) 213 10^3/uL (140-450); Red Blood Cells 2.58 10^6/uL (4.0-5.20); White Blood Cell 5.2 10^3/uL (4.4-10.8)
[2024-12-02 06:10] LABS: Chloride 104 mmol/L (98-107); Potassium 4.4 mmol/L (3.5-5.1); Sodium 140 mmol/L (136-145)
[2024-12-02 06:11] LABS: Anion Gap 9 (5-15); Calcium 10.3 mg/dL (8.7-10.4); Carbon Dioxide 27 mmol/L (20-31)
[2024-12-02 06:16] LABS: BUN/Creatinine Ratio 7.2 (10.0-20.0); Glucose 102 mg/dL (74-106)
[2024-12-02 06:24] LABS: Blood Urea Nitrogen 40 mg/dL (9-23)
[2024-12-02] MEDS ORDERED: SODIUM CHL 0.9% 1000 ML BAG XX ONE (07:00)
--- NOTE | 2024-12-02 09:08 | DVHPN2 ---
Progress Note Date Seen: Dec 02, 2024 Has the PT tested + for MRSA If YES, has PT been informed?: No Medical Necessity Reason Pt with a Central, PICC or Fol: Yes The following are medically ne: PICC Line Subjective Patient reports: No new complaints Other Systems: Patient seen and examined today by myself in follow-up Patient examined hemodialysis, blood pressure stable Objective vital signs Vital Sign Date Time Temp Pulse Resp B/P (MAP) Pulse Ox O2 Delivery O2 Flow Rate FiO2 12/02/24 05:00 97.8 87 18 119/84 (96) 94 97.8 12/01/24 20:00 Room Air* 0 21 Total Intake and Output 12/01/24 12/01/24 12/02/24 15:00 23:00 07:00 Intake Total 1000 ml 800 ml Balance 1000 ml 800 ml medications Current Medications Medications Dose Ordered Sig/Chao Route Start Time Stop Time Status Last Admin Dose Admin Enoxaparin Sodium 30 mg DAILY SC 11/27/24 10:00 11/27/24 09:21 30 MG Sodium Chloride 1,000 ml @ 100 mls/hr Q10H IV 11/26/24 13:45 11/30/24 04:12 100 MLS/HR Acetaminophen/ Hydrocodone Bitart 1 tab Q6HPRN PRN PO 11/26/24 13:45 12/02/24 06:39 1 TAB Montelukast Sodium 10 mg HS PO 11/26/24 22:00 Sennosides 17.2 mg HS PO 11/27/24 22:00 12/01/24 21:37 17.2 MG Magnesium Oxide 400 mg DAILY PO 11/28/24 10:00 12/01/24 09:07 400 MG Patient Own Medication 1 DAILY@0600 PO 11/29/24 06:00 Hold Tamsulosin HCl 0.4 mg QPM PO 11/29/24 18:00 12/01/24 18:22 0.4 MG Pantoprazole Sodium 40 mg DAILY IV 11/30/24 10:00 12/01/24 09:07 40 MG Lactulose 10 ml BID PO 11/29/24 22:00 12/01/24 21:37 10 ML Sevelamer HCl 800 mg TIDWM PO 11/30/24 18:00 12/01/24 18:22 800 MG Amlodipine Besylate 10 mg DAILY PO 12/01/24 10:00 12/01/24 09:10 10 MG Examination: LUNGS:Normal, CVS:Normal, MSK:Normal laboratory and microbiology Laboratory Tests 12/02/24 05:41 Test 12/02/24 05:41 Range/Units Serum Glucose 102 74-106 mg/dL Problem List/Assessment/Plan Problem List/Assessment/Plan End-stage renal disease secondary to autosomal dominant polycystic kidney Hyponatremia, due to excess H2O 0 Hypertension Metabolic acidosis Nephrolithiasis, nonobstructing Hyperphosphatemia Hypomagnesemia Anemia of chronic Kidney disease Recommendations Hemodialysis today with minimal UF Epogen [id number] IV post hemodialysis Blood pressure control Renal diet Renvela 800 mg p.o. t.i.d. with meals Magnesium sulfate IV piggyback Fluid restriction Social service consult for outpatient hemodialysis chair time at [facility] dialysis Patient was cleared from Nephrology for discharge once chair time is available Plan discussed with: Patient My Orders My Orders Orders - BAILEY MARY MD Procedure Category Date Status Time Dialysis Nursing BIA 12/02/24 In Process Message 07:00 Document Fluid Input BAI 12/02/24 In Process And Outpu 07:00 Epoetin Dilip-Epbx PHA 12/02/24 In Process (Retacrit) 21:00 Hemodialysis Orders ORDERS 12/02/24 Transmitted 07:00 BAILEY MARY MD Dec 02, 2024 09:08
[2024-12-02 10:31] LABS: Hepatitis A Ab IgM Negative; Hepatitis B Core IgM Negative (Negative); Hepatitis B Surface Antigen Negative (Negative); Hepatitis C Antibody Negative (Negative)
[2024-12-02] MEDS: LACTULOSE 20Gm/30ML SOLN PO SCH (10:50)
[2024-12-02] MEDS: POLYETHYLENE GLYCOL 17 GM PWDR PO ONE (10:51)
[2024-12-02] MEDS: EPOETIN ALFA-EPBX 10,000 UNIT/1ML VIAL SC ONE (22:22)
[2024-12-03] VITALS (7 sets, daily range): BP systolic 126–151; BP diastolic 85–94; PULSE 81–102; RESP 16–19; TEMP 97.4–98.1; O2SAT 96–99
[2024-12-03 06:12] LABS: Anion Gap 8 (5-15); Calcium 10.1 mg/dL (8.7-10.4); Carbon Dioxide 30 mmol/L (20-31); Chloride 101 mmol/L (98-107); Potassium 4.2 mmol/L (3.5-5.1); Sodium 139 mmol/L (136-145)
[2024-12-03 06:15] LABS: Basophils # (auto) 0.1 10 ^3/uL (0-0.2); Eosinophils # (auto) 0.3 10 ^3/uL (0-0.8); Lymphocytes # (auto) 1.5 10 ^3/uL (0.4-5.4); Monocytes # (auto) 0.5 10 ^3/uL (0-1.3)
[2024-12-03 06:16] LABS: Glucose 93 mg/dL (74-106)
[2024-12-03 06:18] LABS: BUN/Creatinine Ratio 5.6 (10.0-20.0); Basophils % (auto) 1.2 % (0.0-2.0); Eosinophils % (auto) 6.3 % (0.0-7.0); Hematocrit 23.8 % (36.0-46.0); Lymphocytes % (auto) 28.8 % (10.0-50.0); Mean Corpuscular Hgb Conc. 33.5 g/dL (32.0-36.0); Mean Corpuscular Volume 95.5 fL (80.0-100.0); Monocytes % (auto) 8.4 % (0.0-12.0); Neutrophils % (auto) 55.3 % (37.0-80.0); Nucleated Red Blood Cells % 0.1 %; Platelet Count (auto) 185 10^3/uL (140-450); Red Blood Cells 2.49 10^6/uL (4.0-5.20); Red Cell Distribution Width 13.6 % (11.8-14.3); White Blood Cell 5.4 10^3/uL (4.4-10.8)
[2024-12-03 06:27] LABS: Blood Urea Nitrogen 26 mg/dL (9-23)
[2024-12-03] MEDS ORDERED: POLYETHYLENE GLYCOL 17 GM PWDR PO PRN (09:30)
[2024-12-03] MEDS: POLYETHYLENE GLYCOL 17 GM PWDR PO ONE (11:06)
--- NOTE | 2024-12-03 13:39 | DVHPN2 ---
Progress Note Date Seen: Dec 03, 2024 Has the PT tested + for MRSA If YES, has PT been informed?: No Medical Necessity Reason Pt with a Central, PICC or Fol: Yes The following are medically ne: PICC Line Subjective Review of Systems Pt states she feels better today. Tolerated dialysis well yesterday. Patient reports: No new complaints, Feels better Objective vital signs Vital Sign Date Time Temp Pulse Resp B/P (MAP) Pulse Ox O2 Delivery O2 Flow Rate FiO2 12/03/24 10:46 131/86 12/03/24 09:00 97.4 81 17 96 97.4 12/02/24 20:00 Room Air* 0 21 Total Intake and Output 12/02/24 12/02/24 12/03/24 15:00 23:00 07:00 Intake Total 399 ml 1800 ml 600 ml Output Total 800 ml Balance 399 ml 1800 ml -200 ml medications Current Medications Medications Dose Ordered Sig/Chao Route Start Time Stop Time Status Last Admin Dose Admin Enoxaparin Sodium 30 mg DAILY SC 11/27/24 10:00 11/27/24 09:21 30 MG Sodium Chloride 1,000 ml @ 100 mls/hr Q10H IV 11/26/24 13:45 12/02/24 11:00 100 MLS/HR Acetaminophen/ Hydrocodone Bitart 1 tab Q6HPRN PRN PO 11/26/24 13:45 12/03/24 11:52 1 TAB Montelukast Sodium 10 mg HS PO 11/26/24 22:00 Sennosides 17.2 mg HS PO 11/27/24 22:00 12/02/24 22:05 17.2 MG Magnesium Oxide 400 mg DAILY PO 11/28/24 10:00 12/03/24 10:46 400 MG Patient Own Medication 1 DAILY@0600 PO 11/29/24 06:00 Hold Tamsulosin HCl 0.4 mg QPM PO 11/29/24 18:00 12/02/24 18:46 0.4 MG Pantoprazole Sodium 40 mg DAILY IV 11/30/24 10:00 12/03/24 10:46 40 MG Sevelamer HCl 800 mg TIDWM PO 11/30/24 18:00 12/03/24 11:51 800 MG Amlodipine Besylate 10 mg DAILY PO 12/01/24 10:00 12/03/24 10:46 10 MG Lactulose 30 ml BID PO 12/02/24 10:00 12/03/24 10:46 30 ML Polyethylene Glycol 17 gm DAILYPRN PRN PO 12/04/24 09:30 Examination Gen: Patient appears stated age. In no acute distress. Pulm: Bilateral air entry no wheezes, rhonchi or rales. CVS: RRR, Normal S1 and S2 Ext: No edema Neuro: AOx4. laboratory and microbiology Laboratory Tests 12/03/24 05:23 Test 12/03/24 05:23 Range/Units Serum Glucose 93 74-106 mg/dL Labs and/or images reviewed: Labs reviewed by me Problem List/Assessment/Plan Problem List/Assessment/Plan IMP End-stage renal disease secondary to autosomal dominant polycystic kidney- started hemodialysis. Hyponatremia, due to excess [id number] Hypertension- within target range Metabolic acidosis Nephrolithiasis, nonobstructing Hyperphosphatemia Hypomagnesemia Anemia of chronic Kidney disease REC Dialysis chair time has been arranged will be on M// at 1830 at [facility]ialysis on [address] Patient is cleared from Nephrology perspective for discharge D/C spironolactone Blood pressure control Renal diet Continue Renvela 800 mg p.o. t.i.d. with meals Fluid restriction Case discussed with Dr. Ronald Sosa Plan discussed with: Patient, Other (Dr. Ronald Sosa) NAVDEEP SALEH Dec 03, 2024 13:39
--- NOTE | 2024-12-03 15:18 | DVHDSRES ---
Discharge Summary Date of Admission Resident Creating Document: JUSTIN DONALD RESIDENT Nov 25, 2024 at 22:50 Date of Discharge: Dec 03, 2024 Labs/Diagnostic Data: Laboratory Results Test 12/03/24 05:23 12/01/24 05:33 11/30/24 16:41 11/30/24 16:38 White Blood Count 5.4 10^3/uL (4.4-10.8) Red Blood Count 2.49 10^6/uL (4.0-5.20) Hemoglobin 8.0 g/dL (12.2-16.2) Hematocrit 23.8 % (36.0-46.0) Mean Corpuscular Volume 95.5 fL (80.0-100.0) Mean Corpuscular Hemoglobin 32.0 pg (28.0-32.0) Mean Corpuscular Hemoglobin Concent 33.5 g/dL (32.0-36.0) Red Cell Distribution Width 13.6 % (11.8-14.3) Platelet Count 185 10^3/uL (140-450) Mean Platelet Volume 6.9 fL (6.9-10.8) Neutrophils (%) (Auto) 55.3 % (37.0-80.0) Lymphocytes (%) (Auto) 28.8 % (10.0-50.0) Monocytes (%) (Auto) 8.4 % (0.0-12.0) Eosinophils (%) (Auto) 6.3 % (0.0-7.0) Basophils (%) (Auto) 1.2 % (0.0-2.0) Neutrophils # (Auto) 3.0 10 ^3/uL (1.6-8.6) Lymphocytes # (Auto) 1.5 10 ^3/uL (0.4-5.4) Monocytes # (Auto) 0.5 10 ^3/uL (0-1.3) Eosinophils # (Auto) 0.3 10 ^3/uL (0-0.8) Basophils # (Auto) 0.1 10 ^3/uL (0-0.2) Nucleated Red Blood Cells 0.1 % Sodium Level 139 mmol/L (136-145) Potassium Level 4.2 mmol/L (3.5-5.1) Chloride Level 101 mmol/L (98-107) Carbon Dioxide Level 30 mmol/L (20-31) Anion Gap 8 (5-15) Blood Urea Nitrogen 26 mg/dL (9-23) Creatinine 4.67 mg/dL (0.550-1.02) Glomerular Filtration Rate Calc 11 mL/min (>90) BUN/Creatinine Ratio 5.6 (10.0-20.0) Serum Glucose 93 mg/dL (74-106) Calcium Level 10.1 mg/dL (8.7-10.4) Total Bilirubin 0.3 mg/dL (0.2-1.0) Aspartate Amino Transferase (AST) 11 U/L (13-40) Alanine Aminotransferase (ALT) 12 U/L (7-40) Alkaline Phosphatase 68 U/L (46-116) Total Protein 6.6 g/dL (5.7-8.2) Albumin 4.1 g/dL (3.2-4.8) Hepatitis A IgM Antibody Negative Hepatitis B Surface Antigen Negative (Negative) Hepatitis B Core IgM Antibody Negative (Negative) Hepatitis C Antibody Negative (Negative) POC Glucose 113 mg/dl (70-106) Test 11/29/24 18:09 11/29/24 11:44 11/29/24 05:56 11/28/24 04:45 Prothrombin Time 10.5 sec (9.3-11.8) Prothrombin Time INR 0.99 (0.9-1.15) Activated Partial Thromboplast Time 27.5 SEC (24.5-34.5) Parathyroid Hormone (Intact) 400.2 pg/mL (18.4-80.1) Phosphorus Level 5.5 mg/dL (2.4-5.1) Magnesium Level 1.6 mg/dL (1.6-2.6) Vitamin D 25-Hydroxy 35.1 ng/mL (30.0-100) Urine Color Colorless (Yellow) Urine Clarity Clear (Clear) Urine pH 6.0 (5.0-9.0) Urine Specific [place] 1.005 (1.001-1.035) Urine Protein 1+ (Negative) Urine Ketones Negative (Negative) Urine Blood Trace /uL (Negative) Urine Nitrite Negative (Negative) Urine Bilirubin Negative (Negative) Urine Urobilinogen Normal mg/dL (Negative) Urine Leukocyte Esterase Negative /uL (Negative) Urine RBC <1 /hpf (0 - 4) Urine Microscopic WBC < 1 /HPF (0-5) Urine Squamous Epithelial Cells None seen /hpf (<5) Urine Bacteria None seen /hpf (None Seen) Urine Osmolality 185 mOsm/kg Urine Glucose Trace mg/dL (Normal) Urine Opiates Screen Neg (NEGATIVE) Urine Fentanyl Screen Neg (NEGATIVE) Urine Barbiturates Screen Neg (NEGATIVE) Urine Phencyclidine Screen Neg (NEGATIVE) Urine Amphetamines Screen Neg (NEGATIVE) Urine Benzodiazepines Screen Neg (NEGATIVE) Urine Cocaine Screen Neg (NEGATIVE) Urine Cannabinoids Screen Neg (NEGATIVE) Test 11/26/24 04:50 11/25/24 13:40 Hemoglobin A1c < 3.8 % A1C (<5.7) Serum Osmolality 300 mOsm/kg (278-298) Iron Level 111 ug/dL (50-170) Total Iron Binding Capacity 243 ug/dL (250-425) Percent Iron Saturation 45.7 % (15-50) Ferritin 84.1 ng/mL (10-291) B-Type Natriuretic Peptide 19.10 pg/mL (0-100) Thyroid Stimulating Hormone (TSH) 3.16 uIU/mL (0.55-4.78) Troponin I High Sensitivity 4 ng/L (</=34) Other Laboratory Tests 12/03/24 05:23 Brief Hx & Hospital Course: This is a 44-year-old female with past medical history of CKD due to autosomal dominant polycystic kidney disease, gout, dyslipidemia, hypertension came to the hospital due to palpitation and generalized weakness since 2 days. She also reports shortness of breaths, and weakness. Per patient, she has a chronic anemia due to CKD, and has been using Epogen 5000 per week since 1.5 months, which at the beginning helped in improving the Hb, but later her Hb started declining back despite using Epogen. She denies fever, cough, nausea, vomiting, or any recent bowel and bladder habit changes. During the hospitalization, patient's BUN was 79, creatinine was 6.4, nephrology was consulted, initially spironolactone and tolvaptan were discontinued. Patient was started on IV NS. Patient's BUN stayed in 60s, creatinine went up to 7, nephrology initiated hemodialysis. IR was consulted for tunneled catheter placement, and the patient underwent hemodialysis 11/30 and 12/02. Given the hypotension, patient was started on amlodipine 10 mg daily. Patient received sodium chloride tablet initially and sodium bicarbonate TID. Hepatitis panel was negative. Time was arranged at [facility] dialysis [address], [place] [address], with chair times MWF starting Friday12/06/2024 at 1830. She was started on Renvela 800 mg p.o. t.i.d. with meals. 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 She is scheduled for an appointment with the discharge clinic. Patient agrees with the plan. Discharge diagnosis: ESRD secondary to autosomal dominant polycystic kidney disease undergoing hemodialysis Acute kidney injury likely vasomotor superimposed on CKD Anemia of chronic disease secondary to CKD Hyponatremia-resolved Nephrolithiasis-Left renal calculus without hydronephrosis - 5 mm Metabolic acidosis Hypophosphatemia Secondary hyperparathyroidism Hypomagnesemia, repleted Questionable gout left ankle ? GERD Consults/Reason for consult Nephrology consulted for ESRD Operations or Procedures ORDERING PHYSICIAN: JENN LAWRENCE MD PROCEDURE(s): KIDUS - KIDNEY REASON: perla/pkd ORDER NUMBER(s): [id number], ACCESSION NUMBER(s): [id number] EXAM: US Retroperitoneal Limited, Renal CLINICAL INDICATION: perla/pkd TECHNIQUE: Real-time limited ultrasound of the retroperitoneum with image documentation. COMPARISON: US KIDNEY on DOS: 04/07/23 FINDINGS: RIGHT KIDNEY: Right kidney measures up to 14.1 cm. Bilateral renal cysts, largest measuring up to 6.7 cm. No stones. LEFT KIDNEY: Left kidney measures up to 13.6 cm. Portable left renal calculus, measuring up 5 mm without hydronephrosis. OTHER FINDINGS: . . . . .. IMPRESSION: 1. Portable left renal calculus, measuring up 5 mm without hydronephrosis. 2. Bilateral renal cysts, largest measuring up to 6.7 cm. ATED BY: DECLAN MICHAEL MD DICTATED DATE/TIME: 11/27/24 1238 SIGNED BY: DECLAN MICHAEL MD SIGNED DATE/TIME: 11/27/24 1238 CC: CHEST RADIOGRAPH Indication: CHEST PAIN Technique: Single frontal view of the chest was obtained Comparison: XY CHEST PORTABLE on DOS: 04/06/23 FINDINGS: Lines and Tubes: None Lungs: No focal consolidation. Pleura: No effusion. No pneumothorax. Cardiomediastinal contours: Unremarkable Bones: No acute osseous abnormality. IMPRESSION: No acute cardiopulmonary disease. ATED BY: NICOLASA PATEL DO DICTATED DATE/TIME: 11/25/24 1258 SIGNED BY: NICOLASA PATEL DO SIGNED DATE/TIME: 11/25/24 1258 Condition at Discharge: Stable Final Diagnosis/Problems List ESRD secondary to autosomal dominant polycystic kidney disease undergoing hemodialysis Acute kidney injury likely vasomotor superimposed on CKD Anemia of chronic disease secondary to CKD Hyponatremia-resolved Nephrolithiasis-Left renal calculus without hydronephrosis - 5 mm Metabolic acidosis Hypophosphatemia Secondary hyperparathyroidism Hypomagnesemia, repleted Questionable gout left ankle ? GERD Bilateral renal cysts Discharge Disposition: Home Discharge Instruct/Medications Activity: Light activity Follow Up/Referral: Follow up with [facility], chair time has been arranged will be on Friday/Friday/Friday at 1830 at [facility] D[facility] on [address] Follow up with Nephrology as outpatient Follow up with primary care physician within within 7 days Follow up with the discharge clinic appointment within 7 days Medications: Per EMR Discharge Statement: "Patient was advised to return to the ER or call 911 if any headaches, dizziness, shortness of breath, chest pain, abdominal pain, bleeding, fevers, or worsening of medical condition. Patient was counseled about treatment plan, medications, possible side effects, patientverbalized understanding. All questions were answered to the best of my ability. This discharge took greater then 30 minutes in planning, reviewing documentation, counseling the patient, and discussing with other team members." ASSESSMENT ASSESSMENT Assessment Date of Service: Dec 03, 2024 Billing Provider: DWIGHT MAXWELL MD Common Visit Codes: 34772-WYM/OBS DISCH DAY >30min JUSTIN DONALD RESIDENT Dec 03, 2024 15:18 DWIGHT MAXWELL MD Dec 06, 2024 00:33
[2024-12-03] MEDS ORDERED: SENN-58 PO (15:24)
[2024-12-03] MEDS ORDERED: AMLO1TAB22 PO (15:24)
--- NOTE | 2024-12-03 16:08 | DVHSR ---
APPROVED REPORT EXAM: Two-dimensional and M-mode echocardiogram with Doppler and color Doppler. Blood Pressure: 139/93 mmHg INDICATION SOB RISK FACTORS Height: 69, Weight: 178 DIMENSIONS LVDd4.5 (3.8-5.7cm)LA (2D)3.9 (1.9-4.0cm)Aortic Root3.3 (2.0-3.7cm) LVDs3.0 (2.5-4.0cm)LA (MM) (1.9-4.0cm)Aortic Cusp Exc1.5 (1.5-2.0cm) EF (%) 60.0 (55-70%)Rt. Atrium4.0 (1.9-4.0cm)Asc. Aorta cm IVSd1.4 (0.7-1.1cm)RV (D) (1.8-2.4cm) PWd1.2 (0.7-1.1cm) Mitral Valve MitralMitral Stenosis E wave0.74m/sMV Mean GR.mmHg A wave0.79m/sMV Peak GR.mmHg E/A ratio0.92D MVAcm2 DECEL [id number] 1/2 Tim[place] Aortic Valve Aortic ValveAortic Stenosis V10.96m/Sigifredo Mean GR.3mmHg V21.33m/Sigifredo Peak GR.7mmHg LVOT Diameter2.0 (1.8-2.4cm)Doppler AVA2.27cm2 Pulmonic Valve V21.07m/s Conclusion lvef 65% by visual estimate normal RV function, normal atria no severe valve abnormalities noted
[2024-12-04] MEDS ORDERED: POLYETHYLENE GLYCOL 17 GM PWDR PO PRN (09:30)
== END 2024-12-03 17:58 | disposition home or self-care (01) | DRG 469 ==
LOC: ER 12:27 → OVERFLOW 22:50 → TELE-E-ADS 11-27 03:04 → EAST 11-27 04:02 → OVERFLOW 12-01 12:56 → EAST 12-01 13:03
PROVIDERS: ADMIT Student in an Organized Health Care Education/Training Program; ATTEND Student in an Organized Health Care Education/Training Program
PROC: 5A1D70Z Performance of Urinary Filtration, Intermittent, Less than 6 Hours Per Day (ICD-10-PCS; principal; 2024-11-30)
PROC: 05HM33Z Insertion of Infusion Device into Right Internal Jugular Vein, Percutaneous Approach (ICD-10-PCS; 2024-11-30)
PROC: B543ZZA Ultrasonography of Right Jugular Veins, Guidance (ICD-10-PCS; 2024-11-30)
PROC: 5A1D70Z Performance of Urinary Filtration, Intermittent, Less than 6 Hours Per Day (ICD-10-PCS; 2024-12-02)
DX: N17.0 Acute kidney failure with tubular necrosis (principal); E87.20 Acidosis, unspecified; D63.1 Anemia in chronic kidney disease; E83.39 Other disorders of phosphorus metabolism; E87.1 Hypo-osmolality and hyponatremia; I15.1 Hypertension secondary to other renal disorders; N18.6 End stage renal disease; N20.0 Calculus of kidney; K21.9 Gastro-esophageal reflux disease without esophagitis; Q61.2 Polycystic kidney, adult type; E83.42 Hypomagnesemia; E78.5 Hyperlipidemia, unspecified; F17.210 Nicotine dependence, cigarettes, uncomplicated; Z80.0 Family history of malignant neoplasm of digestive organs; Z82.71 Family history of polycystic kidney; Z88.0 Allergy status to penicillin; Z88.8 Allergy status to other drugs, medicaments and biological substances; Z79.899 Other long term (current) drug therapy
CPT/HCPCS: 36415; 71045; 73600; 76775; 76937; 80048; 80053; 80074; 80307; 81001; 82306; 82728; 82962; 83036; 83540; 83550; 83735; 83880; 83930; 83935; 83970; 84100; 84443; 84484; 85025; 85610; 85730; 87340; 90935; 93005; 93306; 99152; 99291; C1894; G0378; J1100; J1642; J2250; J2470

== ENCOUNTER 2025-03-14 18:53 | Inpatient (IN) | payer MEDICAID ==
[~2025-03-14] VITALS: Ht 175.3 cm; Wt 85.3 kg
[~2025-03-14 18:53] MED LIST changes: +AMLO1TAB22 PO; -LISI10TA34 PO; +SENN-58 PO; -TOLV15TA PO; -TOLV30TA2 PO
--- NOTE | 2025-03-14 20:53 | ED.PDOC ---
History of Present Illness HPI Comments 45 y.o female presents to the ED for a chief complaint of right sided neck pain radiating to her right axillary region associated with swelling that started today. Patient reports she was unable to get dialysis today as she was recommended to come into the ED to get the pain evaluated. Patient is on hemodialysis MWF, last session was 3 days ago and has a cath on the right upper chest. Patient denies any recent injury or trauma to pain site. Vitals: Temp: 97.7 F BP: 159/102 HR: 116 SPO2: 96% RA RR: 18 Past medical history: CKD/ESRD on dialysis MWF, HTN and hyperlipidemia ( but is not on any medication for) Past surgical history: Right upper chest catheter, right forearm fistula not currently in use, breast implants. HPI: Poor Historian. REVIEW OF SYSTEMS: CONSTITUTIONAL: Denies acute: fever, diaphoresis, chills, generalized weakness. HEAD: Denies acute: headache, photophobia Eyes: Denies acute: Double vision, vision loss, eye pain, eye discharge. EARS: Denies acute: tinnitus, hearing loss, ear discharge, ear pain, THROAT: Denies acute: sore throat, swelling, difficulty swallowing , pain with swallowing, change in voice. NECK: Denies acute: , stiff neck. HEART: Denies acute : chest pain, palpitations, LUNGS: Denies acute: SOB, wheezing, cough, hemoptysis ABDOMEN: Denies acute: abdominal pain, Nausea, Vomiting, diarrhea, melena , hematemesis, hematochezia SKIN: Denies acute: rash, redness, lesions, itchiness. EXTREMITIES: Denies acute: calf pain, numbness, tingling, weakness, denies pain in extremity. Denies acute: Low back pain. Neuro: Denies acute: focal neurological deficit, motor or sensory focal neurological deficit, tremors, seizure like activity, confusion, dizziness, change in mental status, loss of bowel or bladder function, cauda equina like symptoms. : Denies acute: dysuria, hematuria, flank pain, increase in urinary frequency. PSYCH: Denies acute: hallucination, suicidal ideation, homicidal ideation. FEMALE: Denies acute: abnormal vaginal bleeding, foul odor, unusual discharge. PHYSICAL EXAM: General: -----mild---acute distress, awake and alert. Head: normocephalic, atraumatic. Neck: supple, trachea is midline, no swelling. Throat: Normal phonation. Eyes:, no erythema, no purulent discharge, no proptosis, no icterus. Heart: regular rate, regular rhythm, no significant murmur appreciated. Lungs: no apparent respiratory distress, Able to speak in full sentences. No wheezing, no rhonchi, no crackles. No stridors Clear to auscultation bilaterally. Abdomen: non tender to palpation, non distended, soft, no guarding, no rebound, + bowel sounds. Neuro: Awake, Alert, oriented to name, self, situation, follows commands GCS=15. Speech is normal. Skin: no petechia, no purpura, no cyanosis, non-pale, not jaundice. Lower extremities: --trace - Pitting edema no deformity, no focal swelling, no calf TTP. Makes eye contact. moves all four extremities. Patient has a sensation of right neck supraclavicular region discomfort and swelling however there is no significant swelling that is asymmetrical when compared to the left side. No apparent erythema or palpable masses or bruits Face: no apparent facial droop. Ambulating in the ED independently. Patient has a right upper extremity fistula in the forearm.. Patient is neurovascularly intact in the right upper extremity. No nuchal rigidity, Kernig's sign, Brudzinski's sign, no meningeal signs. ED COURSE: Chief Complaint: Body Pain Time Seen by MD: 20:36 Primary Care Provider: HI Reviewed Notes: Nurses Notes, Allergies Allergies: Coded Allergies: Alprazolam (Verified Allergy, Unknown, 01/04/21) Home Meds Active Scripts Amlodipine Besylate (Amlodipine Besylate) 5 Mg Tab, 10 MG PO DAILY for 30 Days, #60 TAB Prov:JUSTIN DONALD RESIDENT 12/03/24 Senna (Senokot) 8.6 Mg Tab, 17.2 MG PO HS for 30 Days, #60 TAB Prov:JUSTIN DONALD RESIDENT 12/03/24 B-Complex W/ C & Folic Acid (Nephro-Romeo) Tab, 1 TAB PO DAILY for 30 Days, #30 TAB 2 Refills Prov:HEENA DOMINGUEZ MD 10/18/23 Reported Medications Hydrocodone-Acetaminophen (Hydrocodone Bitartrate/AC 10-325 mg) 1 Tab Tab, 1 TAB PO for CKD, TAB 10/17/23 Esomeprazole Magnesium (Esomeprazole Magnesium Dr) 20 Mg Cap, 1 CAP PO DAILYPRN PRN 04/06/23 Loratadine (CLARITIN TABLET) 10 Mg Tb, 1 TAB PO DAILY 04/06/23 Discontinued Reported Medications Montelukast Sodium (MONTELUKAST SODIUM) 10 Mg Tab, 1 TAB PO 04/06/23 Information Source: Patient Mode of Arrival: Ambulatory Past Medical History PAST MEDICAL HISTORY: Anemia, CKF, Gout, High Lipids, HTN HUNTER History: Denies all HUNTER Hx Family History Family History: Family hx of Kidney so Social History Smoker: Cigarettes Alcohol: Denies ETOH Use Drugs: Denies Drug Use Lives In: Home Was a procedure done? Was a procedure done?: No Differential Dx Considerations may include: DVT, dialysis catheter dysfunction, thoracic outlet syndrome, neoplasm, infection X-Ray, Labs, Meds, VS Vital Signs Date Time Temp Pulse Resp B/P (MAP) Pulse Ox O2 Delivery O2 Flow Rate FiO2 03/14/25 20:20 98.7 117 18 159/110 (126) 98 98.7 03/14/25 19:23 97.7 116 18 159/102 (121) 98 97.7 Lab Test 03/14/25 21:21 Range/Units White Blood Count 7.1 4.4-10.8 10^3/uL Red Blood Count 3.34 L 4.0-5.20 10^6/uL Hemoglobin 10.5 L 12.2-16.2 g/dL Hematocrit 30.7 L 36.0-46.0 % Mean Corpuscular Volume 91.8 80.0-100.0 fL Mean Corpuscular Hemoglobin 31.6 28.0-32.0 pg Mean Corpuscular Hemoglobin Concent 34.4 32.0-36.0 g/dL Red Cell Distribution Width 13.0 11.8-14.3 % Platelet Count 287 140-450 10^3/uL Mean Platelet Volume 7.2 6.9-10.8 fL Neutrophils (%) (Auto) 66.1 37.0-80.0 % Lymphocytes (%) (Auto) 28.3 10.0-50.0 % Monocytes (%) (Auto) 2.7 0.0-12.0 % Eosinophils (%) (Auto) 2.3 0.0-7.0 % Basophils (%) (Auto) 0.6 0.0-2.0 % Neutrophils # (Auto) 4.7 1.6-8.6 10 ^3/uL Lymphocytes # (Auto) 2.0 0.4-5.4 10 ^3/uL Monocytes # (Auto) 0.2 0-1.3 10 ^3/uL Eosinophils # (Auto) 0.2 0-0.8 10 ^3/uL Basophils # (Auto) 0 0-0.2 10 ^3/uL Nucleated Red Blood Cells 0.0 % Erythrocyte Sedimentation Rate 25 H 0-20 mm/hr Sodium Level 137 136-145 mmol/L Potassium Level 3.7 3.5-5.1 mmol/L Chloride Level 100 98-107 mmol/L Carbon Dioxide Level 19 L 20-31 mmol/L Anion Gap 18 H 5-15 Blood Urea Nitrogen 43 H 9-23 mg/dL Creatinine 6.08 H 0.550-1.02 mg/dL Glomerular Filtration Rate Calc 8 >90 mL/min BUN/Creatinine Ratio 7.1 L 10.0-20.0 Serum Glucose 97 74-106 mg/dL Lactic Acid Level 1.3 0.4-2.0 mmol/L Calcium Level 10.3 8.7-10.4 mg/dL Total Bilirubin 0.2 0.2-1.0 mg/dL Aspartate Amino Transferase (AST) 14 13-40 U/L Alanine Aminotransferase (ALT) 19 7-40 U/L Alkaline Phosphatase 144 H 46-116 U/L Troponin I High Sensitivity 6 </=34 ng/L C-Reactive Protein High Sensitivity 0.22 <1.0 mg/dL Total Protein 7.6 5.7-8.2 g/dL Albumin 4.9 H 3.2-4.8 g/dL [address] [address] Ph: [phone] DIAGNOSTIC IMAGING Diagnostic Imaging Report : [id number] Signed PATIENT: CT WARE JACCT: [id number] UNIT: [id number] : 1980 LOC: ER ROOM / BED: / AGE / SEX: 45 / F ADM STATUS: REG ER SERVICE 55 ORDERING PHYSICIAN: TIERRA MARCOS DO PROCEDURE(s): RUDVT - Rt Upper DVT REASON: R NECK PAIN SWELLING ORDER NUMBER(s): [id number], ACCESSION NUMBER(s): [id number] RIGHT Upper Extremity Venous Duplex Clinical History: R NECK PAIN SWELLING Comparison: None Findings: Duplex Doppler evaluation of the venous system of the RIGHT lower neck and upper extremity including color Doppler and spectral/pulsed waveform analysis was perf ormed. The internal jugular vein demonstrates appropriate compressibility and waveform variability. The subclavian vein is patent on color Doppler evaluation without intraluminal thrombus and demonstrates waveform variability. The visualized portion of the brachiocephalic vein is patent on color Doppler evaluation without intraluminal thrombus and demonstrates waveform variability. The axillary vein demonstrates appropriate compressibility and waveform variability. The brachial veins demonstrate appropriate compressibility and patency on Doppler evaluation. The basilic vein demonstrates appropriate compressibility and patency on Doppler evaluation. The cephalic vein demonstrates appropriate compressibility and patency on Doppler evaluation. Impression: 1. No venous thrombus identified in the RIGHT upper extremity vessels evaluated above. 2. Port-A-Cath appears to be patent If clinical concern/symptoms persist or worsen, short-interval follow-up study is suggested. ATED BY: SAMY MORALES MD DICTATED DATE/TIME: 03/14/252226 SIGNED BY: SAMY MORALES MD SIGNED DATE/TIME: 03/14/252226 CC: [place] [id number] Ph: [phone] DIAGNOSTIC IMAGING Diagnostic Imaging Report : [id number] Signed PATIENT: CT WARE JACCT: [id number] UNIT: [id number] : 1980 LOC: ER ROOM / BED: / AGE / SEX: 45 / F ADM STATUS: REG ER SERVICE 55 ORDERING PHYSICIAN: TIERRA MARCOS DO PROCEDURE(s): CXRP - CHEST PORTABLE REASON: R neck, R chest dialysis access site pain ORDER NUMBER(s): [id number], ACCESSION NUMBER(s): [id number] CHEST RADIOGRAPH Indication: R neck, R chest dialysis access site pain Technique: Single frontal view of the chest was obtained Comparison: XY CHEST PORTABLE on DOS: 11/25/24, XY CHEST PORTABLE on DOS: 04/06/23 FINDINGS: Lines and Tubes: Right IJ approach hemodialysis catheter terminating within right atrium. Lungs: No focal consolidation. Pleura: No effusion. No pneumothorax. Cardiomediastinal contours: Unremarkable Bones: No acute osseous abnormality. IMPRESSION: No acute cardiopulmonary disease. Right IJ approach hemodialysis catheter terminating within right atrium. ATED BY: NICOLASA PATEL DO DICTATED DATE/TIME: 03/14/252130 SIGNED BY: NICLOASA PATEL DO SIGNED DATE/TIME: 03/14/252130 CC: Time of 1ST Reevaluation: 20:52 Reevaluation 1ST: Unchanged Patient Education/Counseling: Diagnosis, Treatment Family Education/Counseling: No Family Present Departure 1 Departure Time of Disposition: 21:59 Impression: Primary Impression: End-stage renal disease on hemodialysis Additional Impressions: Missed dialysis Neck pain on right side Disposition: ADMITTED INPATIENT Admit to: Tele Condition: Guarded Discharged With: Self Critical Care Note Critical Care Time?: No I personally scribed for TIERRA MARCOS DO ([email or web address]) on 03/14/25 at 20:53. Electronically submitted by eBtty Bonilla ([facility]). I personally scribed for TIERRA MARCOS DO ([email or web address]) on 03/14/25 at 21:10. Electronically submitted by Betty Bonilla ([facility]). TIERRA MARCOS DO March 14, 2025 20:53
[2025-03-14 21:34] LABS: Basophils # (auto) 0 10 ^3/uL (0-0.2); Basophils % (auto) 0.6 % (0.0-2.0); Eosinophils # (auto) 0.2 10 ^3/uL (0-0.8); Eosinophils % (auto) 2.3 % (0.0-7.0); Hematocrit 30.7 % (36.0-46.0); Hemoglobin 10.5 g/dL (12.2-16.2); Lymphocytes % (auto) 28.3 % (10.0-50.0); Mean Corpuscular Hemoglobin 31.6 pg (28.0-32.0); Mean Corpuscular Hgb Conc. 34.4 g/dL (32.0-36.0); Mean Corpuscular Volume 91.8 fL (80.0-100.0); Monocytes # (auto) 0.2 10 ^3/uL (0-1.3); Monocytes % (auto) 2.7 % (0.0-12.0); Neutrophils # (auto) 4.7 10 ^3/uL (1.6-8.6); Neutrophils % (auto) 66.1 % (37.0-80.0); Platelet Count (auto) 287 10^3/uL (140-450); Red Blood Cells 3.34 10^6/uL (4.0-5.20); White Blood Cell 7.1 10^3/uL (4.4-10.8)
--- NOTE | 2025-03-14 21:34 | DVH ---
CHEST RADIOGRAPH Indication: R neck, R chest dialysis access site pain Technique: Single frontal view of the chest was obtained Comparison: XY CHEST PORTABLE on DOS: 11/25/24, XY CHEST PORTABLE on DOS: 04/06/23 FINDINGS: Lines and Tubes: Right IJ approach hemodialysis catheter terminating within right atrium. Lungs: No focal consolidation. Pleura: No effusion. No pneumothorax. Cardiomediastinal contours: Unremarkable Bones: No acute osseous abnormality. IMPRESSION: No acute cardiopulmonary disease. Right IJ approach hemodialysis catheter terminating within right atrium.
[2025-03-14 22:00] LABS: Alanine Aminotransferase 19 U/L (7-40); Anion Gap 18 (5-15); Aspartate Aminotransferase 14 U/L (13-40); BUN/Creatinine Ratio 7.1 (10.0-20.0); CRP High Sensitivity 0.22 mg/dL (<1.0); Calcium 10.3 mg/dL (8.7-10.4); Chloride 100 mmol/L (98-107); Glucose 97 mg/dL (74-106); Potassium 3.7 mmol/L (3.5-5.1); Sodium 137 mmol/L (136-145); Total Protein 7.6 g/dL (5.7-8.2)
[2025-03-14 22:03] LABS: Albumin 4.9 g/dL (3.2-4.8); Alkaline Phosphatase 144 U/L (46-116); Bilirubin, Total 0.2 mg/dL (0.2-1.0); Blood Urea Nitrogen 43 mg/dL (9-23); Carbon Dioxide 19 mmol/L (20-31)
[2025-03-14 22:07] LABS: Erythrocyte Sedimentation Rate 25 mm/hr (0-20)
--- NOTE | 2025-03-14 22:30 | DVH ---
RIGHT Upper Extremity Venous Duplex Clinical History: R NECK PAIN SWELLING Comparison: None Findings: Duplex Doppler evaluation of the venous system of the RIGHT lower neck and upper extremity including color Doppler and spectral/pulsed waveform analysis was performed. The internal jugular vein demonstrates appropriate compressibility and waveform variability. The subclavian vein is patent on color Doppler evaluation without intraluminal thrombus and demonstra lizbeth waveform variability. The visualized portion of the brachiocephalic vein is patent on color Doppler evaluation without intr aluminal thrombus and demonstrates waveform variability. The axillary vein demonstrates appropriate compressibility and waveform variability. The brachial veins demonstrate appropriate compressibility and patency on Doppler evaluation. The basilic vein demonstrates appropriate compressibility and patency on Doppler evaluation. The cephalic vein demonstrates appropriate compressibility and patency on Doppler evaluation. Impression: 1. No venous thrombus identified in the RIGHT upper extremity vessels evaluated above. 2. Port-A-Cath appears to be patent If clinical concern/symptoms persist or worsen, short-interval follow-up study is suggested.
[2025-03-14] MEDS ORDERED: ACETAMINOPHEN 325 MG TAB PO PRN (22:45)
[2025-03-14] MEDS: VANCOMYCIN 1GM/200ML PM 200 ML IV ONE (23:00)
[2025-03-14] MEDS ORDERED: VANCOMYCIN PER PHARMACY 0 MG IV SCH (23:00)
[2025-03-14 23:59] VITALS: BP 135/86; PULSE 92; RESP 18; TEMP 98.1; O2SAT 96
[2025-03-15] VITALS (7 sets, daily range): BP systolic 109–133; BP diastolic 75–92; PULSE 78–98; RESP 16–20; TEMP 97.1–98.3; O2SAT 97–100
[2025-03-15] MEDS ORDERED: HYDROcodone-ACET 5/325MG TAB PO PRN (00:30)
[2025-03-15] MEDS: cefTRIAXone 1GM/50ML D5W 50 ML IV SCH (00:31)
[2025-03-15] MEDS: VANCOMYCIN 1GM/200ML PM 200 ML IV ONE (01:33)
[2025-03-15] MEDS: HYDROcodone-ACET 10/325MG TAB PO PRN (02:56)
--- NOTE | 2025-03-15 03:26 | DVHHP2 ---
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 She describes the pain as sharp, and associated with localized swelling. Denies fever, trauma, dental procedures, or other systemic symptoms. Patient was unable to complete dialysis today as the dialysis center advised ED evaluation for possible catheter dysfunction. Last dialysis session was 3 days ago, during which 200 cc was pulled out only due to hypotension. She currently has a right upper chest tunneled catheter placed in Nov 2024 and a right forearm fistula not in use yet PMH: ESRD on hemodialysis MWF HTN Hyperlipidemia Polycystic kidney disease Secondary hyperparathyroidism Anemia of chronic disease Gout (Hx) GERD (Hx) PSH: Right upper chest catheter Right forearm fistula (not currently in use) Review of Systems Review of Systems Constitutional: Denies fever, chills, diaphoresis, weight loss HEENT: Denies headache, visual changes, photophobia, sore throat Neck: Reports localized right-sided neck swelling and tenderness Cardiac: Denies chest pain or palpitations Pulm: Denies SOB, hemoptysis, wheezing, or cough GI: Denies nausea, vomiting, diarrhea Neuro: Denies weakness, syncope, dizziness Allergies: Coded Allergies: Alprazolam (Verified Allergy, Unknown, 01/04/21) Medications Current Medications Medications Dose Ordered Sig/Chao Route Start Time Stop Time Status Last Admin Dose Admin Acetaminophen 650 mg Q6HP PRN PO 03/14/25 22:45 Ceftriaxone Sodium 50 ml @ 100 mls/hr DAILY@09 IV 03/14/25 23:00 03/15/25 00:31 100 MLS/HR Vancomycin HCl 0 ml @ 0 mls/hr UD IV 03/14/25 23:00 UNV Cyclobenzaprine HCl 5 mg Q8HPRN PRN PO 03/14/25 23:00 Acetaminophen/ Hydrocodone Bitart 1 tab Q4HP PRN PO 03/15/25 01:30 03/15/25 02:56 1 TAB Heparin Sodium (Porcine) 5,000 units Q12HR SC 03/15/25 10:00 UNV Exam Vital Signs Vital Signs Date Time Temp Pulse Resp B/P (MAP) Pulse Ox O2 Delivery O2 Flow Rate FiO2 03/14/25 23:59 92 18 96 Room Air* 0 21 03/14/25 23:59 98.1 135/86 (102) 98.1 Exam Neck: Right-sided neck tenderness without erythema Chest: Mild discomfort around catheter site, no purulence, no redness CV, pulm, neuro: Grossly normal, nonfocal Labs/Xrays Labs Test 03/14/25 21:21 Range/Units White Blood Count 7.1 4.4-10.8 10^3/uL Red Blood Count 3.34 L 4.0-5.20 10^6/uL Hemoglobin 10.5 L 12.2-16.2 g/dL Hematocrit 30.7 L 36.0-46.0 % Mean Corpuscular Volume 91.8 80.0-100.0 fL Mean Corpuscular Hemoglobin 31.6 28.0-32.0 pg Mean Corpuscular Hemoglobin Concent 34.4 32.0-36.0 g/dL Red Cell Distribution Width 13.0 11.8-14.3 % Platelet Count 287 140-450 10^3/uL Mean Platelet Volume 7.2 6.9-10.8 fL Neutrophils (%) (Auto) 66.1 37.0-80.0 % Lymphocytes (%) (Auto) 28.3 10.0-50.0 % Monocytes (%) (Auto) 2.7 0.0-12.0 % Eosinophils (%) (Auto) 2.3 0.0-7.0 % Basophils (%) (Auto) 0.6 0.0-2.0 % Neutrophils # (Auto) 4.7 1.6-8.6 10 ^3/uL Lymphocytes # (Auto) 2.0 0.4-5.4 10 ^3/uL Monocytes # (Auto) 0.2 0-1.3 10 ^3/uL Eosinophils # (Auto) 0.2 0-0.8 10 ^3/uL Basophils # (Auto) 0 0-0.2 10 ^3/uL Nucleated Red Blood Cells 0.0 % Erythrocyte Sedimentation Rate 25 H 0-20 mm/hr Sodium Level 137 136-145 mmol/L Potassium Level 3.7 3.5-5.1 mmol/L Chloride Level 100 98-107 mmol/L Carbon Dioxide Level 19 L 20-31 mmol/L Anion Gap 18 H 5-15 Blood Urea Nitrogen 43 H 9-23 mg/dL Creatinine 6.08 H 0.550-1.02 mg/dL Glomerular Filtration Rate Calc 8 >90 mL/min BUN/Creatinine Ratio 7.1 L 10.0-20.0 Serum Glucose 97 74-106 mg/dL Lactic Acid Level 1.3 0.4-2.0 mmol/L Calcium Level 10.3 8.7-10.4 mg/dL Total Bilirubin 0.2 0.2-1.0 mg/dL Aspartate Amino Transferase (AST) 14 13-40 U/L Alanine Aminotransferase (ALT) 19 7-40 U/L Alkaline Phosphatase 144 H 46-116 U/L Troponin I High Sensitivity 6 </=34 ng/L C-Reactive Protein High Sensitivity 0.22 <1.0 mg/dL Total Protein 7.6 5.7-8.2 g/dL Albumin 4.9 H 3.2-4.8 g/dL Assessment/Plan Assessment/Plan #Acute intractable neck pain #s/p tunneled catheter nov 2024 #catheter dysfunction?? #ESRD secondary to autosomal dominant polycystic kidney disease undergoing hemodialysis #Anemia of chronic disease secondary to CKD #Secondary hyperparathyroidism #H/o gout #H/o GERD Admit Medsurg Renal diet Nephrology consult due to dialysis need Blood cultures Vancomycin Ceftriaxone IV [place] 10 mg PRN Flexeril Pending nephrology opinion about the patency and functionality of the catheter Case discussed with Dr Asher Full code Plan discussed with: Patient, Other My Orders Orders - RADHA CARROLL Procedure Category Date Status Time Admit ADMIT 03/14/25 Transmitted 22:42 Code Status CODE 03/14/25 Transmitted 22:42 Vital Signs [facility] 03/14/25 In Process 22:42 Review Orders With BIA 03/14/25 In Process Adm. 22:42 Consistent DIET 03/15/25 Transmitted Carb(Ccho)Diabetes Breakfast Acetaminophen Tablet [facility] 03/14/25 In Process (Tylenol Tablet) 22:45 Notify Of Changes [facility] 03/14/25 In Process From Base 22:42 Advance Directive [facility] 03/14/25 In Process 22:42 Patient Condition ORDERS 03/14/25 Transmitted 22:42 Allergies [facility] 03/14/25 In Process 22:42 Ceftriaxone 1gm/50ml PHA 03/14/25 In Process D5w (Rocephin) 23:00 Vancomycin Per PHA 03/14/25 Pending Pharmacy 23:00 Blood Culture [facility] 03/14/25 In Process 22:47 *[facility] CONS 03/14/25 Transmitted -[place] 22:47 Cyclobenzaprine PHA 03/14/25 In Process Tablet (Flexeril 23:00 Hydrocodone-Acet PHA 03/15/25 In Process 10/325mg Tab ([place] 01:30 Complete Blood Count LAB 03/15/25 Logged 03:22 Comprehensive LAB 03/15/25 Logged Metabolic Panel 03:22 Thyroid Stimulating LAB 03/15/25 Logged Hormone 03:22 Hemoglobin A1c LAB 03/15/25 Logged 03:22 Heparin Sodium PHA 03/15/25 Logged (Porcine) 10:00 Date of Service: March 14, 2025 Billing Provider: WELLINGTON ASHER MD Common Visit Codes: 50981-APXGRMF INP/OBS CARE (HIGH) Secondary Visit Codes: 37625-[id number] CARE PLAN 30 MINUTES RADHA CARROLL RESIDENT March 15, 2025 03:26
[2025-03-15 06:51] LABS: Basophils # (auto) 0.1 10 ^3/uL (0-0.2); Basophils % (auto) 1.2 % (0.0-2.0); Eosinophils # (auto) 0.2 10 ^3/uL (0-0.8); Eosinophils % (auto) 3.7 % (0.0-7.0); Hematocrit 28.5 % (36.0-46.0); Hemoglobin 9.8 g/dL (12.2-16.2); Lymphocytes # (auto) 1.9 10 ^3/uL (0.4-5.4); Lymphocytes % (auto) 37.4 % (10.0-50.0); Mean Corpuscular Hemoglobin 32.1 pg (28.0-32.0); Mean Corpuscular Hgb Conc. 34.4 g/dL (32.0-36.0); Mean Corpuscular Volume 93.4 fL (80.0-100.0); Monocytes # (auto) 0.2 10 ^3/uL (0-1.3); Monocytes % (auto) 4.6 % (0.0-12.0); Neutrophils # (auto) 2.8 10 ^3/uL (1.6-8.6); Neutrophils % (auto) 53.1 % (37.0-80.0); Nucleated Red Blood Cells % 0.1 %; Platelet Count (auto) 254 10^3/uL (140-450); Red Blood Cells 3.05 10^6/uL (4.0-5.20); Red Cell Distribution Width 12.7 % (11.8-14.3); White Blood Cell 5.2 10^3/uL (4.4-10.8)
[2025-03-15 07:02] LABS: Alanine Aminotransferase 15 U/L (7-40); Albumin 4.3 g/dL (3.2-4.8); Alkaline Phosphatase 127 U/L (46-116); Anion Gap 17 (5-15); Aspartate Aminotransferase 12 U/L (13-40); BUN/Creatinine Ratio 6.6 (10.0-20.0); Blood Urea Nitrogen 42 mg/dL (9-23); Carbon Dioxide 20 mmol/L (20-31); Chloride 103 mmol/L (98-107); Glucose 79 mg/dL (74-106); Potassium 3.6 mmol/L (3.5-5.1); Sodium 140 mmol/L (136-145)
[2025-03-15 07:03] LABS: Bilirubin, Total 0.2 mg/dL (0.2-1.0)
[2025-03-15 09:55] LABS: INR 1.03 (0.9-1.15); Partial Thromboplastin Time 26.8 SEC (24.5-34.5); Prothrombin Time 10.9 sec (9.3-11.8)
[2025-03-15] MEDS: HEPARIN SODIUM (PORCINE) 5000 UNITS/ML 1ML VIAL SC SCH (10:08)
--- NOTE | 2025-03-15 14:08 | DVHPNRES ---
Progress Note Date Seen: March 15, 2025 Resident Creating Document: LIVIER SALMERON RESIDENT Has the PT tested + for MRSA If YES, has PT been informed?: No Medical Necessity Reason Pt with a Central, PICC or Fol: No Subjective Review of Systems Shu Wilcox is a 45-year-old female with a history of end-stage renal disease (ESRD) secondary to autosomal dominant polycystic kidney disease, currently on hemodialysis, who presents to the emergency department with a 2-day history of acute right-sided neck pain radiating to the right axilla. The pain is described as sharp and is associated with localized swelling. She denies fever, recent trauma, dental procedures, or other systemic symptoms. She was unable to complete her scheduled dialysis session today after the dialysis center referred her to the ED due to concerns about possible catheter dysfunction. Her last dialysis was 3 days ago, during which only 200 cc of fluid was removed due to hypotension. She has a right upper chest tunneled catheter placed in November 2024 and a right forearm AV fistula that is not yet in use. Patient seen and examined at the bedside. Patient is still reporting having mild pain in the neck but no other compliant recorded at this time. Nephrology consult on board for the ongoing care of hemodialysis. Objective vital signs Vital Sign Date Time Temp Pulse Resp B/P (MAP) Pulse Ox O2 Delivery O2 Flow Rate FiO2 03/15/25 13:14 98.3 82 18 125/78 (94) 99 98.3 03/14/25 23:59 Room Air* 0 21 Total Intake and Output 03/14/25 03/14/25 03/15/25 15:00 23:00 07:00 Intake Total 490 ml Balance 490 ml medications Current Medications Medications Dose Ordered Sig/Chao Route Start Time Stop Time Status Last Admin Dose Admin Acetaminophen 650 mg Q6HP PRN PO 03/14/25 22:45 Cyclobenzaprine HCl 5 mg Q8HPRN PRN PO 03/14/25 23:00 Acetaminophen/ Hydrocodone Bitart 1 tab Q4HP PRN PO 03/15/25 01:30 03/15/25 13:32 1 TAB Heparin Sodium (Porcine) 5,000 units Q12HR SC 03/15/25 10:00 03/15/25 10:08 5,000 UNITS Examination Pt is lying on bed General Appearance: Alert, Oriented X3, Cooperative, Not in acute distress HEENT: Atraumatic, Mucous membranes moist/pink, Right-sided neck tenderness without erythema Respiratory: Clear to auscultation, Normal air movement, No added sounds Cardiovascular: Regular rate, Normal S1, Normal S2, No murmurs, : Mild discomfort around catheter site, no purulence, no redness Abdominal: Active bowel sounds, Soft, no distention, no tenderness Extremities: No edema, Normal pulses, No tenderness/swelling Skin: No Significant rash, except past surgical scars Neuro: Normal speech, sensorimotor deficits none Psych/Mental Status: Mental status NL, Mood NL Nurse was there as sharperone during examination laboratory and microbiology Laboratory Tests 03/15/25 04:37 Test 03/15/25 04:37 Range/Units Serum Glucose 79 74-106 mg/dL Labs and/or images reviewed: Labs reviewed by me, Image(s) reviewed by me Problem List/Assessment/Plan Problem List/Assessment/Plan # Rt neck pain likely MSK pain # ruled out upper extremity DVT - venous scan showed no venous thrombosis - pain management with the [place], Flexeril - discontinued IV antibiotics - blood cultures # ESRD on HD MWF # ADPKD ESRD # anemia of chronic disease from above # secondary hyperparathyroidism # rule out catheter dysfunction - nephrology consult on board - continuously monitor lab # GERD - Carafate Carafate Heparin Renal diet Goals of care discussed with the patient for more than 27 minutes: Full code status Case discussed with Dr. [place], patient, nurse Plan discussed with: Patient My Orders My Orders Orders - LIVIER SALMERON Procedure Category Date Status Time Urinalysis LAB 03/15/25 Logged 08:25 Drug Screen LAB 03/15/25 Logged 08:25 Electrocardigram EKG 03/15/25 Logged 11:40 Senna Pod Tablet PHA 03/15/25 Logged (Senokot Tablet) 22:00 Sucralfate Susp PHA 03/15/25 Logged (Carafate Susp) 22:00 Complete Blood Count LAB 03/16/25 Verified 04:00 Basic Metabolic Panel LAB 03/16/25 Verified 04:00 Date of Service: March 15, 2025 Billing Provider: JERSON MADRID MD Common Visit Codes: [id number] INP/OBS CARE(HIGH) Secondary Visit Codes: [id number] CARE PLAN 30 MINUTES LIVIER SALMERON March 15, 2025 14:07 JERSON MADRID MD March 15, 2025 20:02
[2025-03-15] MEDS ORDERED: SEVE800T10 PO (15:11)
[2025-03-15] MEDS ORDERED: SENN-105 PO (15:11)
[2025-03-15] MEDS ORDERED: AMLO1TAB23 PO (15:11)
[2025-03-15] MEDS ORDERED: B-CO-6 PO (15:11)
[2025-03-15] MEDS: LACTULOSE 20Gm/30ML SOLN PO ONE (15:36)
[2025-03-15] MEDS: SENNA 8.6 MG TAB PO ONE (15:37)
[2025-03-15] MEDS: PANTOPRAZOLE 40 MG/10 ML VIAL INJ IV ONE (15:37)
[2025-03-15] MEDS: B-COMPLEX W/ C & FOLIC ACID(NEPHROVITE TAB) PO ONE (15:37)
[2025-03-15] MEDS: SEVELAMER 800 MG TAB PO SCH (18:17)
--- NOTE | 2025-03-15 18:48 | DVHINCON2 ---
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 She was seen in the emergency room earlier today. She denies recent fevers, chills, nausea, vomiting, abdominal pain or hematochezia. Past Medical History ESRD ADPKD Hypertension Anemia Allergies: Coded Allergies: Alprazolam (Verified Allergy, Unknown, 01/04/21) Home Meds Active Scripts Amlodipine Besylate (Amlodipine Besylate) 5 Mg Tab, 10 MG PO DAILY for 30 Days, #60 TAB Prov:JUSTIN DONALD RESIDENT 12/03/24 Senna (Senokot) 8.6 Mg Tab, 17.2 MG PO HS for 30 Days, #60 TAB Prov:JUSTIN DONALD RESIDENT 12/03/24 B-Complex W/ C & Folic Acid (Nephro-Romeo) Tab, 1 TAB PO DAILY for 30 Days, #30 TAB 2 Refills Prov:HEENA DOMINGUEZ MD 10/18/23 Reported Medications Amlodipine Besylate (Amlodipine Besylate) 10 Mg Tab, 1 TAB PO DAILY 03/15/25 B-Complex W/ C & Folic Acid (Teri-Romeo Rx) Tab, 1 TAB PO DAILY 03/15/25 Senna (Senna) 8.6 Mg Tab, 2 TAB PO DAILY 03/15/25 Sevelamer Carbonate (Sevelamer Carbonate) 800 Mg Tab, 1 TAB PO TID 03/15/25 Hydrocodone-Acetaminophen (Hydrocodone Bitartrate/AC 10-325 mg) 1 Tab Tab, 1 TAB PO for CKD, TAB 10/17/23 Esomeprazole Magnesium (Esomeprazole Magnesium Dr) 20 Mg Cap, 1 CAP PO DAILYPRN PRN 04/06/23 Loratadine (CLARITIN TABLET) 10 Mg Tb, 1 TAB PO DAILY 04/06/23 Discontinued Reported Medications Montelukast Sodium (MONTELUKAST SODIUM) 10 Mg Tab, 1 TAB PO 04/06/23 Current Medications Current Medications Medications (Trade) Dose Ordered Sig/Chao Route PRN Reason Start Time Stop Time Status Last Admin Acetaminophen (Tylenol Tablet) 650 mg Q6HP PRN PO PAIN SCALE 1-3 OR TEMP>100.4 03/14/25 22:45 Ceftriaxone Sodium 50 ml @ 100 mls/hr DAILY@09 IV 03/14/25 23:00 03/15/25 10:49 DC 03/15/25 08:27 Vancomycin HCl 0 ml @ 0 mls/hr UD IV 03/14/25 23:00 03/15/25 10:49 DC Cyclobenzaprine HCl (Flexeril Tablet) 5 mg Q8HPRN PRN PO FOR MUSCLE SPASM 03/14/25 23:00 Acetaminophen/ Hydrocodone Bitart ([place] 5/325MG Tab) 1 tab Q4HPRN PRN PO MODERATE PAIN (4-6 PAIN SCALE) 03/15/25 00:30 03/15/25 01:32 DC Acetaminophen/ Hydrocodone Bitart ([place] 10/325MG Tab) 1 tab Q4HP PRN PO MODERATE PAIN (4-6 PAIN SCALE) 03/15/25 01:30 03/15/25 18:18 Heparin Sodium (Porcine) 5,000 units Q12HR SC 03/15/25 10:00 03/15/25 10:08 Sennosides (Senokot Tablet) 8.6 mg HS PO 03/15/25 22:00 03/15/25 15:10 DC Sucralfate (Carafate Susp) 1 gm TID@0600,1130,2200 PO 03/15/25 22:00 Sennosides (Senokot Tablet) 17.2 mg DAILY PO 03/16/25 10:00 Pantoprazole Sodium (Protonix) 40 mg DAILY IV 03/16/25 10:00 Sevelamer HCl (Renagel) 800 mg TIDWM PO 03/15/25 18:00 03/15/25 18:17 Multivit/Ca Carb/ B Cmplx/FA/Prenat (Nephro-Romeo Tablet) 1 tab DAILY PO 03/16/25 10:00 Family History: FH polycystic kidney G8 MOTHER FH: kidney disease G8 MOTHER FH: stomach cancer G8 MOTHER Review of Systems Denies gross hematuria, dysuria, tea or Coca-Cola colored urine Denies excessive use of recent NSAIDs, foamy urine, recent IV contrast studies Denies recent chest pain, dyspnea, PND, orthopnea Denies fever, chills, nausea, vomiting, diarrhea Denies unintentional weight loss, night sweats Denies focal weakness, numbness H&P Exam Vital Signs/I&O Vital Sign Date Time Temp Pulse Resp B/P (MAP) Pulse Ox O2 Delivery O2 Flow Rate FiO2 03/15/25 16:43 98.3 98 18 133/92 (106) 100 98.3 03/15/25 14:30 Room Air* 0 21 Intake and Output 03/14/25 03/15/25 19:00 07:00 Intake Total 490 ml Balance 490 ml Intake Oral 240 ml IV Total 250 ml # Voids 2 Physical Exam Gen: nad heent: nc/at, mmm lungs: cta anteriorly cvs: no rub abd: soft, bowel sounds audible ext: no edema skin: no rash neuro: alert and oriented Labs/Diagnostic Data Labs/Diagnostic Data Laboratory Tests Test 03/15/25 16:15 03/15/25 13:07 03/15/25 09:16 03/15/25 08:25 Range/Units Troponin I High Sensitivity 7 11 </=34 ng/L Prothrombin Time 10.9 9.3-11.8 sec Prothrombin Time INR 1.03 0.9-1.15 Activated Partial Thromboplast Time 26.8 24.5-34.5 SEC Magnesium Level 2.2 1.6-2.6 mg/dL Vitamin B12 Level 580 211-911 pg/mL Vitamin D 25-Hydroxy 30.8 30.0-100 ng/mL Test 03/15/25 04:37 03/14/25 21:21 Range/Units White Blood Count 5.2 # 7.1 4.4-10.8 10^3/uL Red Blood Count 3.05 L 3.34 L 4.0-5.20 10^6/uL Hemoglobin 9.8 L 10.5 L 12.2-16.2 g/dL Hematocrit 28.5 L 30.7 L 36.0-46.0 % Mean Corpuscular Volume 93.4 91.8 80.0-100.0 fL Mean Corpuscular Hemoglobin 32.1 H 31.6 28.0-32.0 pg Mean Corpuscular Hemoglobin Concent 34.4 34.4 32.0-36.0 g/dL Red Cell Distribution Width 12.7 13.0 11.8-14.3 % Platelet Count 254 287 140-450 10^3/uL Mean Platelet Volume 7.5 7.2 6.9-10.8 fL Neutrophils (%) (Auto) 53.1 66.1 37.0-80.0 % Lymphocytes (%) (Auto) 37.4 28.3 10.0-50.0 % Monocytes (%) (Auto) 4.6 2.7 0.0-12.0 % Eosinophils (%) (Auto) 3.7 2.3 0.0-7.0 % Basophils (%) (Auto) 1.2 0.6 0.0-2.0 % Neutrophils # (Auto) 2.8 4.7 1.6-8.6 10 ^3/uL Lymphocytes # (Auto) 1.9 2.0 0.4-5.4 10 ^3/uL Monocytes # (Auto) 0.2 0.2 0-1.3 10 ^3/uL Eosinophils # (Auto) 0.2 0.2 0-0.8 10 ^3/uL Basophils # (Auto) 0.1 0 0-0.2 10 ^3/uL Nucleated Red Blood Cells 0.1 0.0 % Sodium Level 140 137 136-145 mmol/L Potassium Level 3.6 3.7 3.5-5.1 mmol/L Chloride Level 103 100 98-107 mmol/L Carbon Dioxide Level 20 19 L 20-31 mmol/L Anion Gap 17 H 18 H 5-15 Blood Urea Nitrogen 42 H 43 H 9-23 mg/dL Creatinine 6.40 H 6.08 H 0.550-1.02 mg/dL Glomerular Filtration Rate Calc 8 8 >90 mL/min BUN/Creatinine Ratio 6.6 L 7.1 L 10.0-20.0 Serum Glucose 79 97 74-106 mg/dL Hemoglobin A1c 5.3 <5.7 % A1C Calcium Level 10.0 10.3 8.7-10.4 mg/dL Total Bilirubin 0.2 0.2 0.2-1.0 mg/dL Aspartate Amino Transferase (AST) 12 L 14 13-40 U/L Alanine Aminotransferase (ALT) 15 19 7-40 U/L Alkaline Phosphatase 127 H 144 H 46-116 U/L Total Protein 7.0 7.6 5.7-8.2 g/dL Albumin 4.3 4.9 H 3.2-4.8 g/dL Thyroid Stimulating Hormone (TSH) 1.15 0.55-4.78 uIU/mL Erythrocyte Sedimentation Rate 25 H 0-20 mm/hr Lactic Acid Level 1.3 0.4-2.0 mmol/L Troponin I High Sensitivity 6 </=34 ng/L C-Reactive Protein High Sensitivity 0.22 <1.0 mg/dL Assessment IMP: 1) ESRD on dialysis 2) neck pain, initial duplex ultrasound without signs of thrombosis 3) anemia 4) ADPKD 5) hypertension REC: - dialysis today for solute removal - no heparin with dialysis - amanda - patient is resume chronic outpatient dialysis schedule upon discharge. Thank you for the consultation. Plan discussed with: Other ISH DO MD March 15, 2025 18:48
[2025-03-15] MEDS: SUCRALFATE 1 GM/10 ML ORAL SUSP PO SCH (21:58)
[2025-03-15] MEDS ORDERED: SENNA 8.6 MG TAB PO SCH (22:00)
[2025-03-16] VITALS (7 sets, daily range): BP systolic 118–126; BP diastolic 78–86; PULSE 80–88; RESP 17–20; TEMP 97.7–98.3; O2SAT 97–100
[2025-03-16 05:57] LABS: Basophils # (auto) 0.1 10 ^3/uL (0-0.2); Basophils % (auto) 1.1 % (0.0-2.0); Eosinophils # (auto) 0.3 10 ^3/uL (0-0.8); Eosinophils % (auto) 4.9 % (0.0-7.0); Hematocrit 27.5 % (36.0-46.0); Hemoglobin 9.7 g/dL (12.2-16.2); Lymphocytes % (auto) 36.7 % (10.0-50.0); Mean Corpuscular Hemoglobin 32.1 pg (28.0-32.0); Mean Corpuscular Hgb Conc. 35.3 g/dL (32.0-36.0); Mean Corpuscular Volume 91.1 fL (80.0-100.0); Monocytes # (auto) 0.3 10 ^3/uL (0-1.3); Monocytes % (auto) 5.9 % (0.0-12.0); Neutrophils # (auto) 2.7 10 ^3/uL (1.6-8.6); Neutrophils % (auto) 51.4 % (37.0-80.0); Nucleated Red Blood Cells % 0.1 %; Platelet Count (auto) 239 10^3/uL (140-450); Red Blood Cells 3.02 10^6/uL (4.0-5.20); Red Cell Distribution Width 13.1 % (11.8-14.3); White Blood Cell 5.3 10^3/uL (4.4-10.8)
[2025-03-16 06:01] LABS: Chloride 101 mmol/L (98-107); Potassium 3.6 mmol/L (3.5-5.1); Sodium 140 mmol/L (136-145)
[2025-03-16 06:02] LABS: Anion Gap 10 (5-15); Calcium 9.5 mg/dL (8.7-10.4); Carbon Dioxide 29 mmol/L (20-31)
[2025-03-16 06:07] LABS: BUN/Creatinine Ratio 4.7 (10.0-20.0); Blood Urea Nitrogen 19 mg/dL (9-23); Glucose 94 mg/dL (74-106)
[2025-03-16 10:25] LABS: Hepatitis B Surface Antigen Negative (Negative)
[2025-03-16 10:29] LABS: Hepatitis A Ab IgM Negative; Hepatitis B Core IgM Negative (Negative); Hepatitis C Antibody Negative (Negative)
[2025-03-16] MEDS: SENNA 8.6 MG TAB PO SCH (10:34)
[2025-03-16] MEDS: B-COMPLEX W/ C & FOLIC ACID(NEPHROVITE TAB) PO SCH (10:34)
[2025-03-16] MEDS: PANTOPRAZOLE 40 MG/10 ML VIAL INJ IV SCH (10:34)
--- NOTE | 2025-03-16 11:37 | DVHPN2 ---
Progress Note Date Seen: March 16, 2025 Has the PT tested + for MRSA If YES, has PT been informed?: No Medical Necessity Reason Pt with a Central, PICC or Fol: No Subjective Patient reports: No new complaints Objective vital signs Vital Sign Date Time Temp Pulse Resp B/P (MAP) Pulse Ox O2 Delivery O2 Flow Rate FiO2 03/16/25 09:00 97.8 85 17 119/78 (92) 98 97.8 03/15/25 20:00 Room Air* 0 21 Total Intake and Output 03/15/25 03/15/25 03/16/25 15:00 23:00 07:00 Intake Total 700 ml 500 ml Balance 700 ml 500 ml medications Current Medications Medications Dose Ordered Sig/Chao Route Start Time Stop Time Status Last Admin Dose Admin Acetaminophen 650 mg Q6HP PRN PO 03/14/25 22:45 Cyclobenzaprine HCl 5 mg Q8HPRN PRN PO 03/14/25 23:00 Acetaminophen/ Hydrocodone Bitart 1 tab Q4HP PRN PO 03/15/25 01:30 03/16/25 10:44 1 TAB Heparin Sodium (Porcine) 5,000 units Q12HR SC 03/15/25 10:00 03/16/25 10:39 5,000 UNITS Sucralfate 1 gm TID@0600,1130,2200 PO 03/15/25 22:00 03/16/25 05:54 1 GM Sennosides 17.2 mg DAILY PO 03/16/25 10:00 03/16/25 10:34 17.2 MG Pantoprazole Sodium 40 mg DAILY IV 03/16/25 10:00 03/16/25 10:34 40 MG Sevelamer HCl 800 mg TIDWM PO 03/15/25 18:00 03/15/25 18:17 800 MG Multivit/Ca Carb/ B Cmplx/FA/Prenat 1 tab DAILY PO 03/16/25 10:00 03/16/25 10:34 1 TAB Examination: GENERAL:Normal, CVS:Normal, ABDOMEN:Normal laboratory and microbiology Laboratory Tests 03/16/25 05:24 Test 03/16/25 05:24 Range/Units Serum Glucose 94 74-106 mg/dL Microbiology Date/Time Source Procedure Growth Status 03/14/25 23:16 Blood Blood Culture - Preliminary NO GROWTH AFTER 24 HOURS OF INCUBATION. Resulted Problem List/Assessment/Plan Problem List/Assessment/Plan End-stage renal disease on hemodialysis Hypertension Presented to the hospital with neck pain Adult polycystic kidney disease Exit site infection of tunneled dialysis catheter without tunneled infection Anemia due to chronic kidney disease Has a maturing fistula recently placed IV antibiotic x1 for exit site infection We will discuss with Radiology external suture likely causing bleeding and irritation Epogen Rest of care as per primary medical team Plan discussed with: Patient DAVID ALDRIDGE MD March 16, 2025 11:37
[2025-03-16] MEDS: ceFAZolin 1GM/50ML 50 ML IV ONE (12:45)
--- NOTE | 2025-03-16 14:35 | DVHPNRES ---
Progress Note Date Seen: March 16, 2025 Resident Creating Document: LIVIER SALMERON RESIDENT Has the PT tested + for MRSA If YES, has PT been informed?: No Medical Necessity Reason Pt with a Central, PICC or Fol: No Subjective Review of Systems Patient seen and examined at the bedside. Patient is reported having pain in the neck. Ordered hot pack. Objective vital signs Vital Sign Date Time Temp Pulse Resp B/P (MAP) Pulse Ox O2 Delivery O2 Flow Rate FiO2 03/16/25 13:00 97.7 88 17 126/86 (99) 99 97.7 03/16/25 08:00 Room Air* 0 21 Total Intake and Output 03/15/25 03/15/25 03/16/25 15:00 23:00 07:00 Intake Total 700 ml 500 ml Balance 700 ml 500 ml medications Current Medications Medications Dose Ordered Sig/Chao Route Start Time Stop Time Status Last Admin Dose Admin Acetaminophen 650 mg Q6HP PRN PO 03/14/25 22:45 Cyclobenzaprine HCl 5 mg Q8HPRN PRN PO 03/14/25 23:00 Acetaminophen/ Hydrocodone Bitart 1 tab Q4HP PRN PO 03/15/25 01:30 03/16/25 10:44 1 TAB Heparin Sodium (Porcine) 5,000 units Q12HR SC 03/15/25 10:00 03/16/25 10:39 5,000 UNITS Sucralfate 1 gm TID@0600,1130,2200 PO 03/15/25 22:00 03/16/25 11:56 1 GM Sennosides 17.2 mg DAILY PO 03/16/25 10:00 03/16/25 10:34 17.2 MG Pantoprazole Sodium 40 mg DAILY IV 03/16/25 10:00 03/16/25 10:34 40 MG Sevelamer HCl 800 mg TIDWM PO 03/15/25 18:00 03/16/25 12:05 800 MG Multivit/Ca Carb/ B Cmplx/FA/Prenat 1 tab DAILY PO 03/16/25 10:00 03/16/25 10:34 1 TAB Examination Pt is lying on bed General Appearance: Alert, Oriented X3, Cooperative, Not in acute distress HEENT: Atraumatic, Mucous membranes moist/pink, Right-sided neck tenderness without erythema Respiratory: Clear to auscultation, Normal air movement, No added sounds Cardiovascular: Regular rate, Normal S1, Normal S2, No murmurs, : Mild discomfort around catheter site, no purulence, no redness Abdominal: Active bowel sounds, Soft, no distention, no tenderness Extremities: No edema, Normal pulses, No tenderness/swelling Skin: No Significant rash, except past surgical scars Neuro: Normal speech, sensorimotor deficits none Psych/Mental Status: Mental status NL, Mood NL Nurse was there as sharperone during examination laboratory and microbiology Laboratory Tests 03/16/25 05:24 Test 03/16/25 05:24 Range/Units Serum Glucose 94 74-106 mg/dL Microbiology Date/Time Source Procedure Growth Status 03/14/25 23:16 Blood Blood Culture - Preliminary NO GROWTH AFTER 24 HOURS OF INCUBATION. Resulted Labs and/or images reviewed: Labs reviewed by me, Image(s) reviewed by me Problem List/Assessment/Plan Problem List/Assessment/Plan # Rt neck pain likely MSK pain # ruled out upper extremity DVT - venous scan showed no venous thrombosis - pain management with the [place], Flexeril - discontinued IV antibiotics - blood cultures -hot pack # ESRD on HD MWF # ADPKD ESRD # anemia of chronic disease from above # secondary hyperparathyroidism # rule out catheter dysfunction - nephrology consult on board - continuously monitor lab -hemodialysis yesterday and Epogen # GERD - Carafate Carafate Heparin Renal diet Goals of care discussed with the patient for more than 27 minutes: Full code status Case discussed with Dr. Rayo, patient, nurse Plan discussed with: Patient My Orders My Orders Orders - LIVIER SALMERON RESIDENT Procedure Category Date Status Time Senna Pod Tablet PHA 03/16/25 In Process (Senokot Tablet) 10:00 Pantoprazole PHA 03/16/25 In Process (Protonix) 10:00 Sevelamer (Renagel) PHA 03/15/25 In Process 18:00 B-Complex W/ C & PHA 03/16/25 In Process Folic Tablet 10:00 Renal DIET 03/15/25 Transmitted Standard(2gna,3gk,Lopho) Dinner Hot Pack ED NURSING 03/16/25 Transmitted LIVIER SALMERON RESIDENT March 16, 2025 14:35
[2025-03-16] MEDS: LACTULOSE 20Gm/30ML SOLN PO ONE (21:14)
[2025-03-16] MEDS: CYCLOBENZAPRINE HCL 10 MG TAB PO PRN (21:45)
[2025-03-17 05:00] VITALS: BP 118/80; PULSE 69; RESP 18; TEMP 97.5; O2SAT 98
[2025-03-17 08:00] VITALS: PULSE 86; RESP 18; O2SAT 98
[2025-03-17] MEDS: FUROSEMIDE 20 MG TAB PO SCH (08:35)
[2025-03-17 09:00] VITALS: BP 120/79; PULSE 74; RESP 17; TEMP 98; O2SAT 97
--- NOTE | 2025-03-17 09:58 | DVHPN2 ---
Progress Note Date Seen: March 17, 2025 Has the PT tested + for MRSA If YES, has PT been informed?: No Medical Necessity Reason Pt with a Central, PICC or Fol: No Subjective Patient reports: No new complaints Objective vital signs Vital Sign Date Time Temp Pulse Resp B/P (MAP) Pulse Ox O2 Delivery O2 Flow Rate FiO2 03/17/25 08:35 115/70 03/17/25 08:00 86 18 98 Room Air* 0 21 03/17/25 05:00 97.5 97.5 Total Intake and Output 03/16/25 03/16/25 03/17/25 15:00 23:00 07:00 Intake Total 1600 ml 480 ml Balance 1600 ml 480 ml medications Current Medications Medications Dose Ordered Sig/Chao Route Start Time Stop Time Status Last Admin Dose Admin Acetaminophen 650 mg Q6HP PRN PO 03/14/25 22:45 Cyclobenzaprine HCl 5 mg Q8HPRN PRN PO 03/14/25 23:00 03/16/25 21:45 5 MG Acetaminophen/ Hydrocodone Bitart 1 tab Q4HP PRN PO 03/15/25 01:30 03/17/25 06:07 1 TAB Heparin Sodium (Porcine) 5,000 units Q12HR SC 03/15/25 10:00 03/16/25 21:48 5,000 UNITS Sucralfate 1 gm TID@0600,1130,2200 PO 03/15/25 22:00 03/17/25 06:07 1 GM Sennosides 17.2 mg DAILY PO 03/16/25 10:00 03/17/25 08:33 17.2 MG Sevelamer HCl 800 mg TIDWM PO 03/15/25 18:00 03/17/25 08:31 800 MG Multivit/Ca Carb/ B Cmplx/FA/Prenat 1 tab DAILY PO 03/16/25 10:00 03/17/25 08:36 1 TAB Furosemide 80 mg DAILY PO 03/17/25 10:00 03/17/25 08:35 80 MG Pantoprazole Sodium 40 mg DAILY@0600 PO 03/18/25 10:00 UNV Examination: GENERAL:Normal, CVS:Normal, ABDOMEN:Normal, SKIN:Normal laboratory and microbiology Laboratory Tests 03/16/25 05:24 Test 03/16/25 05:24 Range/Units Serum Glucose 94 74-106 mg/dL Microbiology Date/Time Source Procedure Growth Status 03/14/25 23:16 Blood Blood Culture - Preliminary NO GROWTH AFTER 48 HOURS OF INCUBATION. Resulted Problem List/Assessment/Plan Problem List/Assessment/Plan End-stage renal disease on hemodialysis Hypertension Presented to the hospital with neck pain Adult polycystic kidney disease Exit site infection of tunneled dialysis catheter without tunneled infection Anemia due to chronic kidney disease Has a maturing fistula recently placed resume outpatient dialysis stable from renal standpoint Plan discussed with: Patient My Orders My Orders Orders - DAVID ALDRIDGE MD Procedure Category Date Status Time Furosemide Tablet PHA 03/17/25 In Process (Lasix Tablet) 10:00 DAVID ALDRIDGE MD March 17, 2025 09:58
[2025-03-17 11:36] VITALS: BP 115/70
--- NOTE | 2025-03-17 11:46 | DVHDSRES ---
Discharge Summary Date of Admission Resident Creating Document: LIVIER SALMERON RESIDENT March 14, 2025 at 22:42 Date of Discharge: March 17, 2025 Admitting Diagnosis Neck pain Labs/Diagnostic Data: Laboratory Results Test 03/16/25 05:24 03/15/25 16:15 03/15/25 13:07 03/15/25 09:16 White Blood Count 5.3 10^3/uL (4.4-10.8) Red Blood Count 3.02 10^6/uL (4.0-5.20) Hemoglobin 9.7 g/dL (12.2-16.2) Hematocrit 27.5 % (36.0-46.0) Mean Corpuscular Volume 91.1 fL (80.0-100.0) Mean Corpuscular Hemoglobin 32.1 pg (28.0-32.0) Mean Corpuscular Hemoglobin Concent 35.3 g/dL (32.0-36.0) Red Cell Distribution Width 13.1 % (11.8-14.3) Platelet Count 239 10^3/uL (140-450) Mean Platelet Volume 7.1 fL (6.9-10.8) Neutrophils (%) (Auto) 51.4 % (37.0-80.0) Lymphocytes (%) (Auto) 36.7 % (10.0-50.0) Monocytes (%) (Auto) 5.9 % (0.0-12.0) Eosinophils (%) (Auto) 4.9 % (0.0-7.0) Basophils (%) (Auto) 1.1 % (0.0-2.0) Neutrophils # (Auto) 2.7 10 ^3/uL (1.6-8.6) Lymphocytes # (Auto) 2.0 10 ^3/uL (0.4-5.4) Monocytes # (Auto) 0.3 10 ^3/uL (0-1.3) Eosinophils # (Auto) 0.3 10 ^3/uL (0-0.8) Basophils # (Auto) 0.1 10 ^3/uL (0-0.2) Nucleated Red Blood Cells 0.1 % Sodium Level 140 mmol/L (136-145) Potassium Level 3.6 mmol/L (3.5-5.1) Chloride Level 101 mmol/L (98-107) Carbon Dioxide Level 29 mmol/L (20-31) Anion Gap 10 (5-15) Blood Urea Nitrogen 19 mg/dL (9-23) Creatinine 4.01 mg/dL (0.550-1.02) Glomerular Filtration Rate Calc 13 mL/min (>90) BUN/Creatinine Ratio 4.7 (10.0-20.0) Serum Glucose 94 mg/dL (74-106) Calcium Level 9.5 mg/dL (8.7-10.4) Troponin I High Sensitivity 7 ng/L (</=34) Prothrombin Time 10.9 sec (9.3-11.8) Prothrombin Time INR 1.03 (0.9-1.15) Activated Partial Thromboplast Time 26.8 SEC (24.5-34.5) Test 03/15/25 08:25 03/15/25 04:37 03/14/25 21:21 Magnesium Level 2.2 mg/dL (1.6-2.6) Vitamin B12 Level 580 pg/mL (211-911) Vitamin D 25-Hydroxy 30.8 ng/mL (30.0-100) Hepatitis A IgM Antibody Negative Hepatitis B Surface Antigen Negative (Negative) Hepatitis B Core IgM Antibody Negative (Negative) Hepatitis C Antibody Negative (Negative) Hemoglobin A1c 5.3 % A1C (<5.7) Total Bilirubin 0.2 mg/dL (0.2-1.0) Aspartate Amino Transferase (AST) 12 U/L (13-40) Alanine Aminotransferase (ALT) 15 U/L (7-40) Alkaline Phosphatase 127 U/L (46-116) Total Protein 7.0 g/dL (5.7-8.2) Albumin 4.3 g/dL (3.2-4.8) Thyroid Stimulating Hormone (TSH) 1.15 uIU/mL (0.55-4.78) Erythrocyte Sedimentation Rate 25 mm/hr (0-20) Lactic Acid Level 1.3 mmol/L (0.4-2.0) C-Reactive Protein High Sensitivity 0.22 mg/dL (<1.0) Other Laboratory Tests 03/16/25 05:24 Brief Hx & Hospital Course: Shu Wilcox is a 45-year-old female with a history of end-stage renal disease (ESRD) secondary to autosomal dominant polycystic kidney disease, currently on hemodialysis, who presents to the emergency department with a 2-day history of acute right-sided neck pain radiating to the right axilla. The pain is described as sharp and is associated with localized swelling. She denies fever, recent trauma, dental procedures, or other systemic symptoms. She was unable to complete her scheduled dialysis session today after the dialysis center referred her to the ED due to concerns about possible catheter dysfunction. Her last dialysis was 3 days ago, during which only 200 cc of fluid was removed due to hypotension. She has a right upper chest tunneled catheter placed in November 2024 and a right forearm AV fistula that is not yet in use. The patient presented with right neck pain, likely musculoskeletal in origin,Upper extremity DVT ruled out via venous scan. Pain was managed with [place], Flexeril, and hot packs. Blood cultures were taken preliminary negative. 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 A nephrology consult addressed concerns about catheter dysfunction; after discussion with radiology, the plan was revised to continue using the current catheter with a loading dose of cefazolin for a suspected exit site infection. Additional diagnoses include GERD, managed with Carafate & protonix, and constipation, treated with lactulose. The patient showed clinical improvement, remained hemodynamically stable, and was deemed fit for discharge with appropriate medical therapy. Discharge instructions included lifestyle modifications, continued follow-up with nephrology for dialysis, and primary care. Pt is lying on bed General Appearance: Alert, Oriented X3, Cooperative, Not in acute distress HEENT: Atraumatic, Mucous membranes moist/pink, neck pain improved Respiratory: Clear to auscultation, Normal air movement, No added sounds Cardiovascular: Regular rate, Normal S1, Normal S2, No murmurs, right-sided tunneled cath intact without signs of infection/inflammation Abdominal: Active bowel sounds, Soft, no distention, no tenderness Extremities: No edema, Normal pulses, No tenderness/swelling Skin: No Significant rash, except past surgical scars Neuro: Normal speech, sensorimotor deficits none Psych/Mental Status: Mental status NL, Mood NL Nurse was there as sharperone during examination Operations or Procedures RIGHT Upper Extremity Venous Duplex Impression: 1. No venous thrombus identified in the RIGHT upper extremity vessels evaluated above. 2. Port-A-Cath appears to be patent ----- CHEST RADIOGRAPH IMPRESSION: No acute cardiopulmonary disease. Right IJ approach hemodialysis catheter terminating within right atrium. Condition at Discharge: Stable Final Diagnosis/Problems List # Rt neck pain likely MSK pain # ruled out upper extremity DVT # ESRD on HD MWF # ADPKD ESRD # anemia of chronic disease from above- Epogen # secondary hyperparathyroidism # rule out catheter dysfunction # GERD # Constipation Discharge Disposition: Home Discharge Instruct/Medications Diet: Consistent carbohydrate, Cardiac 2g Na,low cholest Activity: No Restrictions, As Tolerated Follow Up/Referral: PCP Nephrology Medications: Protonix Carafate Resume home medications Discharge Statement: "Patient was advised to return to the ER or call 911 if any headaches, dizziness, shortness of breath, chest pain, abdominal pain, bleeding, fevers, or worsening of medical condition. Patient was counseled about treatment plan, medications, possible side effects, patientverbalized understanding. All questions were answered to the best of my ability. This discharge took greater then 30 minutes in planning, reviewing documentation, counseling the patient, and discussing with other team members." ASSESSMENT ASSESSMENT Assessment Right side neck pain likely musculoskeletal ESRD on HD LIVIER SALMERON RESIDENT March 17, 2025 11:46
[2025-03-17] MEDS ORDERED: SUCR1SUS26 PO (11:47)
[2025-03-17] MEDS ORDERED: PANT40T PO (11:47)
[2025-03-17 13:00] VITALS: BP 117/78; PULSE 81; RESP 19; TEMP 98.1; O2SAT 92
[2025-03-18] MEDS ORDERED: PANTOPRAZOLE 40 MG TAB PO SCH (10:00)
--- NOTE | 2025-03-19 10:49 | ECG ---
[facility] Test Date: 2025-03-16 Test Time: 10:59:34 Pat Name: CT WARE Department: Respiratoy Room: [address] [place] [address] 3 Gender: F Mission Manager: : 1980 Requested By: LIVIER SALMERON Order Number: [id number] Reading MD: Benedicto Lim Measurements Intervals [place] Rate: 79 P: 76 MA: 166 QRS: 63 QRSD: 81 T: 47 QT: 370 QTc: 425 Interpretive Statements Sinus rhythm Electronically Signed On 03-20-2025 22:49:13 PDT by Benedicto Lim Please click the below link to view image of tracing.
== END 2025-03-17 12:15 | disposition home or self-care (01) | DRG 721 ==
LOC: ER 18:59 → OVERFLOW 22:42 → EAST 03-15 14:29
PROVIDERS: ADMIT Internal Medicine Geriatric Medicine; ATTEND Emergency Medicine
PROC: 5A1D70Z Performance of Urinary Filtration, Intermittent, Less than 6 Hours Per Day (ICD-10-PCS; principal; 2025-03-15)
DX: T80.212A Local infection due to central venous catheter, initial encounter (principal); N18.6 End stage renal disease; D63.1 Anemia in chronic kidney disease; N25.81 Secondary hyperparathyroidism of renal origin; Q61.2 Polycystic kidney, adult type; I15.1 Hypertension secondary to other renal disorders; M54.2 Cervicalgia; Z91.158 Patient's noncompliance with renal dialysis for other reason; Z99.2 Dependence on renal dialysis; F17.210 Nicotine dependence, cigarettes, uncomplicated; K21.9 Gastro-esophageal reflux disease without esophagitis; E78.5 Hyperlipidemia, unspecified; Z82.71 Family history of polycystic kidney; Z80.0 Family history of malignant neoplasm of digestive organs; Z88.8 Allergy status to other drugs, medicaments and biological substances
CPT/HCPCS: 36415; 71045; 80048; 80053; 80074; 82306; 82607; 83036; 83605; 83735; 84443; 84484; 85025; 85610; 85652; 85730; 86141; 87040; 90935; 93005; 93971; G0378; J2470

== ENCOUNTER 2025-09-24 19:41 | Emergency (ER) | payer MEDICAID ==
[~2025-09-24] VITALS: Ht 175.3 cm; Wt 75.3 kg
[~2025-09-24 19:41] MED LIST changes: +AMLO1TAB23 PO; +B-CO-6 PO; -MONT-8 PO; +PANT40T PO; +SENN-105 PO; +SEVE800T10 PO; +SUCR1SUS26 PO
[2025-09-24 20:09] VITALS: O2SAT 100
--- NOTE | 2025-09-24 20:19 | ED.PDOC ---
History of Present Illness HPI Comments 45-year-old female who came to ER for shortness of breath. Patient has a history of # ESRD on HD MWF, # ADPKD ESRD, # anemia of chronic disease from above, # secondary hyperparathyroidism, # hyponatremia. 2 hours ago, she was at home when she started feeling very anxious sudden having shortness of breath. S tates she feels like she is going to have a seizure. Patient has a history of seizures. Patient admits to having drinking alcohol and smoking marijuana earlier. Worsening of shortness of breath and anxiety prompted the patient come to the ER Chief Complaint: Shortness of Breath Time Seen by MD: 20:17 Primary Care Provider: HI Reviewed Notes: Nurses Notes Allergies: Coded Allergies: Alprazolam (Verified Allergy, Unknown, 01/04/21) Penicillins (Verified Allergy, Unknown, 09/24/25) Home Meds Active Scripts Pantoprazole Sodium Sesquihydr (Pantoprazole Sodium) 40 Mg Tab, 40 MG PO DAILY@0600 for 30 Days, #30 TAB Prov:LIVIER SALMERON RESIDENT 03/17/25 Sucralfate (CARAFATE SUSP) 1 Gm/10 Ml Ss, 1 GM PO TID@0600,1130,2200 for 30 Days, #900 ML Prov:LIVIER SALMERON RESIDENT 03/17/25 Amlodipine Besylate (Amlodipine Besylate) 5 Mg Tab, 10 MG PO DAILY for 30 Days, #60 TAB Prov:JUSTIN DONALD RESIDENT 12/03/24 Senna (Senokot) 8.6 Mg Tab, 17.2 MG PO HS for 30 Days, #60 TAB Prov:JUSTIN DONALD RESIDENT 12/03/24 B-Complex W/ C & Folic Acid (Nephro-Romeo) Tab, 1 TAB PO DAILY for 30 Days, #30 TAB 2 Refills Prov:HEENA DOMINGUEZ MD 10/18/23 Reported Medications Amlodipine Besylate (Amlodipine Besylate) 10 Mg Tab, 1 TAB PO DAILY 03/15/25 B-Complex W/ C & Folic Acid (Teri-Romeo Rx) Tab, 1 TAB PO DAILY 03/15/25 Senna (Senna) 8.6 Mg Tab, 2 TAB PO DAILY 03/15/25 Sevelamer Carbonate (Sevelamer Carbonate) 800 Mg Tab, 1 TAB PO TID 03/15/25 Hydrocodone-Acetaminophen (Hydrocodone Bitartrate/AC 10-325 mg) 1 Tab Tab, 1 TAB PO for CKD, TAB 10/17/23 Esomeprazole Magnesium (Esomeprazole Magnesium Dr) 20 Mg Cap, 1 CAP PO DAILYPRN PRN 04/06/23 Loratadine (CLARITIN TABLET) 10 Mg Tb, 1 TAB PO DAILY 04/06/23 Information Source: Patient, Emergency Med Personnel Mode of Arrival: EMS Past Medical History PAST MEDICAL HISTORY: Anemia, CKF, Gout, High Lipids, HTN Past Medical History (Other): # ESRD on HD MWF # ADPKD ESRD # anemia of chronic disease from above- Epogen # secondary hyperparathyroidism # GERD # Constipation [employer]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 [employer] History: Denies all [employer] Hx Family History Family History: Family hx of Kidney so Social History Smoker: Cigarettes Alcohol: Occasionally Drugs: Marijuana Lives In: Home Constitutional: denies: chills, diaphoresis, fatigue, fever, malaise, sweats, weakness, others EENTM: denies: blurred vision, double vision, ear bleeding, ear discharge, ear drainage, ear pain, ear ringing, eye pain, eye redness, hearing loss, mouth pain, mouth swelling, nasal discharge, nose bleeding, nose congestion, nose pain, photophobia, tearing, throat pain, throat swelling, voice changes, others Respiratory: reports: shortness of breath; denies: cough, hemoptysis, orthopnea, SOB at rest, SOB with excertion, stridor, wheezing, others Cardiovascular: denies: chest pain, dizzy spells, diaphoresis, Dyspnea on exertion, edema, irregular heart beat, left arm pain, lightheadedness, palpitations, PND, syncope, others Gastrointestinal: denies: abdomen distended, abdominal pain, blood streaked bowels, constipated, diarrhea, dysphagia, difficulty swallowing, hematemesis, melena, nausea, poor appetite, poor fluid intake, rectal bleeding, rectal pain, vomiting, others Genitourinary: denies: abnormal vagina bleeding, burning, dyspareunia, dysuria, flank pain, frequency, hematuria, incontinence, pain, , vagina discharge, urgency, others Neurological: denies: dizziness, fainting, headache, left sided numbness, left sided weakness, numbness, paresthesia, pre-existing deficit, right sided numbness, right sided weakness, seizure, speech problems, tingling, tremors, weakness, others Musculoskeletal: denies: back pain, gout, joint pain, joint swelling, muscle pain, muscle stiffness, neck pain, others Integumetry: denies: bruises, change in color, change in hair/nails, dryness, laceration, lesions, lumps, rash, wounds, others Allergic/Immunocompromised: denies: Difficulty Healing, Frequent Infections, Hives, Itching, others Hematologic/Lymphatic: denies: anemia, blood clots, easy bleeding, easy bruising, swollen glands, others Endocrine: denies: excessive hunger, excessive sweating, excessive thirst, excessive urination, flushing, intolerance to cold, intolerance to heat, unexplained weight gain, unexplained weight loss, others Psychiatric: reports: anxiety; denies: bipolar disorder, depression, hopeless, panic disorder, schizophrenia, sleepless, suicidal, others Physical Exam General Appearance: No Apparent Distress, Normal, Other (Restless, hyperventilating) HEENT: Normal ENT Inspection, Pharynx Normal, TMs Normal Neck: Full Range of Motion, Non-Tender, Normal, Normal Inspection Respiratory: Chest Non-Tender, Lungs Clear, No Accessory Muscle Use, No Respiratory Distress, Normal Breath Sounds Cardiovascular: No Edema, No JVD, No Murmur, No Gallop, Normal Peripheral Pulses, Regular Rate/Rhythm Breast Exam: Deferred Gastrointestinal: No Organomegaly, Non Tender, No Pulsatile Mass, Normal Bowel Sounds, Soft Genitalia: Deferred Pelvic: Deferred Rectal: Deferred Extremities: No calf tenderness, Normal capillary refill, Normal inspection, Normal range of motion, Non-tender, No pedal edema Musculoskeletal : Apperance: Normal Neurologic: Alert, lard tub washer II-XII nml as Tested, No Motor Deficits, Normal Affect, Normal Mood, No Sensory Deficits Cerebellar Function: Normal Reflexes: Normal Skin: Dry, Normal Color, Warm Lymphatic: No Adenopathy Was a procedure done? Was a procedure done?: No Differential Dx Considerations may include: Anxiety, shortness of breath, alcohol intoxication X-Ray, Labs, Meds, VS Vital Signs Date Time Temp Pulse Resp B/P (MAP) Pulse Ox O2 Delivery O2 Flow Rate FiO2 09/24/25 20:12 125 09/24/25 20:09 97.8 122 26 161/116 100 97.8 Lab Test 09/24/25 20:33 Range/Units White Blood Count 5.8 4.4-10.8 10^3/uL Red Blood Count 3.39 L 4.0-5.20 10^6/uL Hemoglobin 12.4 12.2-16.2 g/dL Hematocrit 36.0 36.0-46.0 % Mean Corpuscular Volume 106.0 H 80.0-100.0 fL Mean Corpuscular Hemoglobin 36.5 H 28.0-32.0 pg Mean Corpuscular Hemoglobin Concent 34.5 32.0-36.0 g/dL Red Cell Distribution Width 13.6 11.8-14.3 % Platelet Count 255 140-450 10^3/uL Mean Platelet Volume 6.9 6.9-10.8 fL Neutrophils (%) (Auto) 68.2 37.0-80.0 % Lymphocytes (%) (Auto) 25.7 10.0-50.0 % Monocytes (%) (Auto) 3.5 0.0-12.0 % Eosinophils (%) (Auto) 1.6 0.0-7.0 % Basophils (%) (Auto) 1.0 0.0-2.0 % Neutrophils # (Auto) 3.9 1.6-8.6 10 ^3/uL Lymphocytes # (Auto) 1.5 0.4-5.4 10 ^3/uL Monocytes # (Auto) 0.2 0-1.3 10 ^3/uL Eosinophils # (Auto) 0.1 0-0.8 10 ^3/uL Basophils # (Auto) 0.1 0-0.2 10 ^3/uL Nucleated Red Blood Cells 0.1 % Sodium Level 137 136-145 mmol/L Potassium Level 3.5 3.5-5.1 mmol/L Chloride Level 98 98-107 mmol/L Carbon Dioxide Level 23 20-31 mmol/L Anion Gap 16 H 5-15 Blood Urea Nitrogen 16 9-23 mg/dL Creatinine 4.28 H 0.550-1.02 mg/dL Glomerular Filtration Rate Calc 12 >90 mL/min BUN/Creatinine Ratio 3.7 L 10.0-20.0 Serum Glucose 109 H 74-106 mg/dL Calcium Level 10.1 8.7-10.4 mg/dL Plasma/Serum Blood Alcohol 238.2 H <10 mg/dL Time of 1ST Reevaluation: 20:17 Reevaluation 1ST: Unchanged Time of 2ND Reevaluation: 23:29 Reevaluation 2ND: Resolved Patient Education/Counseling: Diagnosis, Treatment Family Education/Counseling: No Family Present Comments This is a patient who has chronic renal failure. Who presents to the ER complaining about anxiety after having some marijuana alcohol. Patient on presentation was extremely agitated with hyperventilation pressure speech. She is now much calmer. Alcohol level is over 200. She is otherwise stable she is alert oriented and now clinically sober she will be discharged to her family member to return to home. SEPSIS Sepsis Screen Physician Orders Drug Screen (09/24/25 20:17) Vital Signs Date Time Temp Pulse Resp B/P (MAP) Pulse Ox O2 Delivery O2 Flow Rate FiO2 09/24/25 20:12 125 09/24/25 20:09 97.8 122 26 161/116 100 97.8 Laboratory Tests Test 09/24/25 20:33 White Blood Count 5.8 10^3/uL (4.4-10.8) Departure 1 Departure Time of Disposition: 23:28 Impression: Primary Impression: Chronic renal failure Additional Impression: Alcohol intoxication Disposition: 01 HOME / SELF CARE / HOMELESS Condition: Good Discharged With: Self Critical Care Note Critical Care Time?: No Stability Stability form required: No Heart Score Heart Score: Heart Score Response (Comments) Value History N/A 0 EKG N/A 0 Age N/A 0 Risk Factors N/A 0 Troponin N/A 0 Total 0 I personally scribed for ELDA RAMESH MD ([email or web address]) on 09/24/25 at 20:19. Electronically submitted by Anthony Morocho ([email or web address]). ELDA RAMESH MD Sep 24, 2025 20:19
--- NOTE | 2025-09-24 20:29 | ECG ---
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
[2025-09-24 20:51] LABS: Hematocrit 36.0 % (36.0-46.0); Hemoglobin 12.4 g/dL (12.2-16.2); Mean Corpuscular Hemoglobin 36.5 pg (28.0-32.0); Mean Corpuscular Volume 106.0 fL (80.0-100.0); Nucleated Red Blood Cells % 0.1 %
[2025-09-24 20:56] LABS: Chloride 98 mmol/L (98-107); Potassium 3.5 mmol/L (3.5-5.1); Sodium 137 mmol/L (136-145)
[2025-09-24 20:57] LABS: Anion Gap 16 (5-15); Calcium 10.1 mg/dL (8.7-10.4); Carbon Dioxide 23 mmol/L (20-31)
[2025-09-24 21:02] LABS: BUN/Creatinine Ratio 3.7 (10.0-20.0); Blood Urea Nitrogen 16 mg/dL (9-23)
[2025-09-24 21:18] LABS: Glucose 109 mg/dL (74-106)
[2025-09-25] MEDS: ALPRAZolam 0.25 MG TAB PO ONE (00:03)
[2025-09-25 00:06] VITALS: BP 126/93; PULSE 97; RESP 12; TEMP 98.2
== END 2025-09-24 23:35 | disposition home or self-care (01) ==
LOC: EDBD 19:41 → ER 19:41
DX: I12.0 Hypertensive chronic kidney disease with stage 5 chronic kidney disease or end stage renal disease (principal); N18.6 End stage renal disease; F10.129 Alcohol abuse with intoxication, unspecified; F17.210 Nicotine dependence, cigarettes, uncomplicated; F41.9 Anxiety disorder, unspecified; Z79.899 Other long term (current) drug therapy; Z88.0 Allergy status to penicillin; Z99.2 Dependence on renal dialysis; Y90.9 Presence of alcohol in blood, level not specified
CPT/HCPCS: 36415; 80048; 80320; 85025; 93005